=== PATIENT | female | born 1960 | race Caucasian/White ===

== ENCOUNTER 2016-10-04 11:42 | Emergency (ER) | payer MEDICARE ==
[~2016-10-04] VITALS: Ht 157.5 cm; Wt 52.1 kg
[~2016-10-04 11:42] MED LIST: ATEN25TA PO; AZIT250T3 PO; ESTR42.5V VAGINAL; LEVO-86 PO; MIRA3350 PO; NEXI40CA PO; PERC10TA27 PO; PRED1 PO; VITA200013 PO; ZOFR4TAB PO; [UNRECOGNIZED DRUG - CODE] VAGINAL
[2016-10-04 11:49] VITALS: BP 110/72; PULSE 72; RESP 16; TEMP 98.3; O2SAT 98
[2016-10-04] MEDS ORDERED: LORA-474 PO (12:05)
[2016-10-04] MEDS ORDERED: SYNT25TA PO (12:05)
[2016-10-04] MEDS ORDERED: FLORINEF PO (12:05)
[2016-10-04 12:06] LABS: MEAN CORPUSCULAR HGB CONC 29.8 % (32.0-36.0)
--- NOTE | 2016-10-04 12:06 | PD ---
HPI Chief Complaint: GI Complaint Time Seen by Provider: 11:55 Travel History International Travel<30 days: No Contact w/Intl Traveler<30days: No Traveled to known affect area: No History of Present Illness HPI This is a 56-year-old female who has a history of Loíza's disease who presents to the emergency department with 1 month of increasing generalized weakness, nausea, loose stools and malaise, constant, worsening over the past several days with no associated vomiting. She's been under a lot of stress concerned had a heart attack. She feels like her electrolytes may be getting [id number]. She did give herself at [facility] injection yesterday. She is also reporting some increasing pain in her thoracic region where she has a known T7 fracture. 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, MIX CONNECTIVE AUTOIMMINE) Blood Disorders: No Anxiety: Yes Depression: No Heart Rhythm Problems: Yes (PALPITATIONS, TACHYCARDIA, PVC'S, PAC'S) Cancer: No Cardiac Catheterization: Yes (RT HEART CATH, PULM ANGIOGRAM,TILT TABLE TEST) Cardiovascular Problems: Yes High Cholesterol: Yes Chemotherapy: No Chest Pain: No Congestive Heart Failure: No COPD: No Cerebrovascular Accident: No Diabetes: No Diminished Hearing: No Endocrine: Yes (ADDISONS) Gastrointestinal Disorders: Yes (GASTROPARESIS) GERD: Yes Glaucoma: No Genitourinary: Yes (BURNING) Headaches: No Hepatitis: No Hiatal Hernia: No Hypertension: No Immune Disorder: Yes (LUPUS) Implanted Vascular Access Dvce: No Kidney Stones: No Musculoskeletal: No Neurologic: Yes Psychiatric: Yes Reproductive: No Respiratory: No Immunizations Current: No Migraines: No Myocardial Infarction: No Radiation Therapy: No Renal Failure: No Seizures: No Sickle Cell Disease: No Sleep Apnea: No Thyroid Disease: Yes (HASHIMOTOS THYROIDITIS,ADDISONS DISEASE) Ulcer: Yes PNEUMOCCOCAL Vaccine (Year): 2 Menopausal: Yes : 3 Para: 3 Miscarriage: 0 : 0 Past Surgical History Abdominal Surgery: Yes ( TIMES 3) AICD: No Appendectomy: No Arteriovenous Shunt: No Body Medical Devices: partial left hip 2011 (Dr. Hobbs) Cardiac Surgery: No Section: Yes (X 3) Cholecystectomy: No Coronary Artery Bypass Graft: No Ear Surgery: No Endocrine Surgery: No Eye Surgery: No Genitourinary Surgery: No Gynecologic Surgery: Yes (HYSTERECTOMY) Hysterectomy: Yes Insulin Pump: No Joint Replacement: No Neurologic Surgery: No Oral Surgery: Yes (TONSILLECTOMY) Pacemaker: No Thoracic Surgery: No Tonsillectomy: Yes Other Surgery: Yes Social History Alcohol Use: No Tobacco Use: No Substance Use: No Allergies-Medications (Allergen,Severity, Reaction): Coded Allergies: Amoxicillin (Verified Allergy, Severe, hives, 10/04/16) Doxycycline (Verified Allergy, Severe, HIVES, 10/04/16) Ferrlecit (Verified Allergy, Severe, HIVES, 10/04/16) H2 Blocking Agents (Verified Allergy, Severe, "PALPITATIONS", 10/04/16) Mycelex (Verified Allergy, Severe, "HIVES", 10/04/16) Penicillin (Verified Allergy, Severe, "HIVES", 10/04/16) Remeron Bethany-Tab (Verified Allergy, Severe, Sedation, 10/04/16) SSRI-Serotonin Reuptake Inhib (Verified Allergy, Severe, VOMITING, 10/04/16) Sulfa (Verified Allergy, Severe, anaphylactic shock, 10/04/16) Iodine (Verified Allergy, Intermediate, 10/04/16) Adenosine (Verified Adverse Reaction, Severe, "DR STATED NOT TO TAKE", 10/04) Compazine (Verified Adverse Reaction, Severe, "EPS", 10/04/16) Contrast Media (Verified Adverse Reaction, Severe, BURNING IN ALL MUCOUS MEMBRANES, 10/04/16) Dilaudid (Verified Adverse Reaction, Severe, Nausea/Vomiting, 10/04/16) Epinephrine (Verified Adverse Reaction, Severe, TACHYCARDIA, 10/04/16) Nonsteroidal Anti-Inflammatory Agts (Verified Adverse Reaction, Severe, "JITTERY", 10/04/16) Phenergan (Verified Adverse Reaction, Severe, "EPS", 10/04/16) Reglan (Verified Adverse Reaction, Severe, "EPS", 10/04/16) Reported Meds & Prescriptions Reported Meds & Active Scripts Active Reported Ativan (Lorazepam) 1 Mg Tab 1 Mg PO BID PRN Synthroid (Levothyroxine Sodium) 25 Mcg Tab 68.5 Mcg PO 3 DAYS [Florinef] 0.075 Mg PO DAILY Miralax (Polyethylene Glycol 3350) 1 Pow Pow 2 Cap PO DAILY Zofran (Ondansetron HCl) 4 Mg Tab 4 Mg PO Q6HR PRN Azithromycin 250 Mg Tab 250 Mg PO DIRECTED Take 2 tabs (500 mg) on day 1 then 1 tab daily x 4 days. Nexium (Esomeprazole DR) 40 Mg Capdr 40 Mg PO DAILY Vitamin D (Cholecalciferol) 2,000 Unit Cap 2,000 PO DAILY Synthroid (Levothyroxine Sodium) 137 Mcg Tab 62.5 Mcg PO 4 DAYS Prednisone 1 Mg Tab 1 Mg PO DIRECTED Dhea 1 % (Emollient) 1 Cre Cre 12.5 Mg VAGINAL DAILY Atenolol 25 Mg Tab 25 Mg PO TID Estrace Vaginal (Estradiol) 0.01% Cream 1 Appl VAGINAL HS Percocet (Oxycodone-Acetaminophen) 10-325 mg Tab 1 Tab PO Q4H PRN Review of Systems Except as stated in HPI: all other systems reviewed are Neg Physical Exam Narrative GENERAL:Well appearing, no acute distress SKIN: Warm and dry. HEAD: Atraumatic. Normocephalic. EYES: Pupils equal and round. No injection or drainage. ENT: Dry mucous membranes. NECK: Trachea midline. CARDIOVASCULAR: Regular rate and rhythm. No murmur appreciated. RESPIRATORY: Clear to auscultation. Breath sounds equal bilaterally. GASTROINTESTINAL: Abdomen soft, non-tender, nondistended. MUSCULOSKELETAL: No obvious deformities. Tender to palpation in the mid thoracic spine NEUROLOGICAL: Awake and alert. No obvious cranial nerve deficits. Moving all extremities. PSYCHIATRIC: Appropriate mood and affect; insight and judgment normal. Data Data Last Documented VS Vital Signs Date Time Temp Pulse Resp B/P Pulse Ox O2 Delivery O2 Flow Rate FiO2 10/04/16 13:27 62 16 104/58 100 Room Air 10/04/16 11:49 98.3 Orders Complete Blood Count With Diff (10/04/16 12:04) Comprehensive Metabolic Panel (10/04/16 12:04) ^ Insert Iv (10/04/16 12:04) Sodium Chlor 0.9% 1000 Ml Inj (Ns 1000 M (10/04/16 12:15) Thyroid Stimulating Hormone (10/04/16 12:04) Spine, Thoracic-Ap/Lat/Sw(3vw) (10/04/16 ) Sodium Chlor 0.9% 1000 Ml Inj (Ns 1000 M (10/04/16 12:15) Ondansetron Inj (Zofran Inj) (10/04/16 12:15) Osmolality,Serum (10/04/16 12:14) Labs Laboratory Tests Test 10/04/16 12:20 White Blood Count 7.9 TH/MM3 Red Blood Count 5.85 MIL/MM3 Hemoglobin 10.7 GM/DL Hematocrit 35.9 % Mean Corpuscular Volume 61.4 FL Mean Corpuscular Hemoglobin 18.3 PG Mean Corpuscular Hemoglobin 29.8 % Concent Red Cell Distribution Width 17.6 % Platelet Count 127 TH/MM3 Mean Platelet Volume 10.6 FL Neutrophils (%) (Auto) 75.8 % Lymphocytes (%) (Auto) 18.5 % Monocytes (%) (Auto) 4.8 % Eosinophils (%) (Auto) 0.4 % Basophils (%) (Auto) 0.5 % Neutrophils # (Auto) 6.0 TH/MM3 Lymphocytes # (Auto) 1.5 TH/MM3 Monocytes # (Auto) 0.4 TH/MM3 Eosinophils # (Auto) 0.0 TH/MM3 Basophils # (Auto) 0.0 TH/MM3 CBC Comment DIFF FINAL Differential Comment Sodium Level 142 MEQ/L Potassium Level 3.9 MEQ/L Chloride Level 103 MEQ/L Carbon Dioxide Level 28.9 MEQ/L Anion Gap 10 MEQ/L Blood Urea Nitrogen 19 MG/DL Creatinine 0.78 MG/DL Estimat Glomerular Filtration 76 ML/MIN Rate Random Glucose 93 MG/DL Calcium Level 9.1 MG/DL Total Bilirubin 0.6 MG/DL Aspartate Amino Transf 14 U/L (AST/SGOT) Alanine Aminotransferase 18 U/L (ALT/SGPT) Alkaline Phosphatase 49 U/L Total Protein 7.5 GM/DL Albumin 3.8 GM/DL Thyroid Stimulating Hormone 0.336 uIU/ML 3rd Gen [facility] Medical Decision Making Medical Screen Exam Complete: Yes Emergency Medical Condition: Yes Interpretation(s) Microcytic anemia consistent with April last year Electrolytes are reassuring TSH is low Differential Diagnosis Addisonian crisis, electrolyte abnormality, dehydration, compression fracture Narrative Course This is a 56-year-old female who has a history of Jeramy's disease who presents to the emergency department with generalized malaise and increased diarrhea. Electrolytes were obtained which were all reassuring. She has chronic anemia and her TSH is low. This can be followed up by her primary care physician. A thoracic x-ray was obtained because the patient was having increasing pain but shows a stable compression fracture. Patient will be discharged home and can follow-up with her primary care physician on Wednesday. Diagnosis Primary Impression: Low TSH level Patient Instructions: General Instructions Additional Instructions: If you develop severe chest pain, shortness of breath, sweating, lightheadedness , dizziness or difficulty breathing return to the emergency department immediately. Followup with your primary care physician in 2-3 days if your symptoms are not resolved. Med/Other Pt SpecificInfo: No Change to Meds Disposition: 01 DISCHARGE HOME Condition: Stable Zhanna Bridges MD Oct 04, 2016 12:06
[2016-10-04] MEDS ORDERED: ONDANSETRON HCL 4 MG/2 ML VIAL IV ONE (12:15)
[2016-10-04] MEDS ORDERED: SODIUM CHLOR 0.9% 1000 ML INJ 1,000 ML IV ONE ×2 (12:15)
[2016-10-04 12:28] LABS: BASOPHIL % 0.5 % (0.0-2.0); EOSINOPHIL % 0.4 % (0.0-4.0); HEMATOCRIT 35.9 % (35.0-46.0); LYMPH % 18.5 % (9.0-44.0); LYMPHOCYTE # 1.5 TH/MM3 (1.0-4.8); MEAN CELL VOLUME 61.4 FL (80.0-100.0); MEAN CORPUSCULAR HEMOGLOBIN 18.3 PG (27.0-34.0); MONO % 4.8 % (0.0-8.0); NEUT % 75.8 % (16.0-70.0); PLATELET COUNT 127 TH/MM3 (150-450); RED BLOOD COUNT 5.85 MIL/MM3 (4.00-5.30); RED CELL DISTRIBUTION WIDTH 17.6 % (11.6-17.2); WHITE BLOOD COUNT 7.9 TH/MM3 (4.0-11.0)
[2016-10-04 12:39] LABS: HEMO FLAGS DIFF FINAL
[2016-10-04 12:40] LABS: CHLORIDE 103 MEQ/L (98-107); POTASSIUM 3.9 MEQ/L (3.5-5.1); SODIUM (NA) 142 MEQ/L (136-145)
[2016-10-04 12:43] LABS: ANION GAP 10 MEQ/L (5-15); BICARBONATE 28.9 MEQ/L (21.0-32.0); BLOOD UREA NITROGEN 19 MG/DL (7-18)
[2016-10-04 12:46] LABS: ALT (GPT) 18 U/L (10-53)
[2016-10-04 12:47] LABS: AST (GOT) 14 U/L (15-37); GLOMERULAR FILTRATION RATE 76 ML/MIN (>89)
[2016-10-04 12:48] LABS: TOTAL BILIRUBIN ADULT 0.6 MG/DL (0.2-1.0)
[2016-10-04 12:49] LABS: ALKALINE PHOSPHATASE 49 U/L (45-117)
--- NOTE | 2016-10-04 13:03 | RADHPO ---
EXAM DATE/TIME: 10/04/2016 12:37 [facility] COMPARISON: SPINE THORACIC AP/LAT/SW (3VW), August 07, 2012, 9:39. INDICATIONS : Upper back pain, no known injury MEDICAL HISTORY : None. SURGICAL HISTORY : None. ENCOUNTER: Initial ACUITY: 2 days PAIN SCORE: 7/10 LOCATION: Bilateral upper back FINDINGS: Thoracolumbar scoliosis is noted. Pedicles are intact. There is minimal anterior wedging of T7 pres ent on the comparison study and unchanged. No other evidence for a compression is noted. CONCLUSION: Stable minimal compression T7. Juan Miguel Brand MD FACR on October 04, 2016 at 12:54 Board Certified Radiologist. This report was verified electronically.
[2016-10-04 13:27] VITALS: BP 104/58; PULSE 62; RESP 16; O2SAT 100
[2016-10-05] MEDS ORDERED: FLUD.1 PO (23:56)
== END 2016-10-04 13:58 | disposition home or self-care (01) ==
LOC: PHED 11:42
DX: R79.89 Other specified abnormal findings of blood chemistry (principal); R53.1 Weakness; R11.0 Nausea; R19.7 Diarrhea, unspecified; R53.81 Other malaise; M54.6 Pain in thoracic spine; E27.1 Primary adrenocortical insufficiency; E07.9 Disorder of thyroid, unspecified; E78.00 Pure hypercholesterolemia, unspecified; Z86.2 Personal history of diseases of the blood and blood-forming organs and certain disorders involving the immune mechanism; Z87.39 Personal history of other diseases of the musculoskeletal system and connective tissue; Z86.79 Personal history of other diseases of the circulatory system; Z87.19 Personal history of other diseases of the digestive system; Z86.69 Personal history of other diseases of the nervous system and sense organs; Z86.59 Personal history of other mental and behavioral disorders
CPT/HCPCS: 72072; 80053; 83930; 84443; 85025; 96361; 96374; 99284; J2405; J7030

== ENCOUNTER 2016-10-11 15:15 | Emergency (ER) | payer MEDICARE ==
[~2016-10-11] VITALS: Ht 157.5 cm; Wt 52.1 kg
[~2016-10-11 15:15] MED LIST changes: +FLUD.1 PO; +LORA-474 PO; +SYNT25TA PO
[2016-10-11 15:20] VITALS: BP 117/80; PULSE 83; RESP 16; TEMP 98.6; O2SAT 96
[2016-10-11] MEDS ORDERED: AZIT200S2 PO (15:44)
[2016-10-11 15:53] VITALS: BP 101/57; PULSE 76; RESP 18; O2SAT 97
[2016-10-11 16:08] LABS: AUTOMATED NEUTROPHIL # 7.9 TH/MM3 (1.8-7.7); BASOPHIL % 0.4 % (0.0-2.0); EOSINOPHIL % 0.2 % (0.0-4.0); HEMATOCRIT 36.7 % (35.0-46.0); LYMPH % 17.1 % (9.0-44.0); LYMPHOCYTE # 1.7 TH/MM3 (1.0-4.8); MEAN CORPUSCULAR HEMOGLOBIN 18.7 PG (27.0-34.0); MEAN CORPUSCULAR HGB CONC 30.2 % (32.0-36.0); MONO % 3.3 % (0.0-8.0); PLATELET COUNT 153 TH/MM3 (150-450); RED BLOOD COUNT 5.91 MIL/MM3 (4.00-5.30); RED CELL DISTRIBUTION WIDTH 17.6 % (11.6-17.2); WHITE BLOOD COUNT 9.9 TH/MM3 (4.0-11.0)
[2016-10-11 16:10] LABS: BLOOD, URINE NEG (NEG); GLUCOSE,URINE NEG (NEG); KETONE, URINE NEG (NEG); NITRITE,URINE NEG (NEG); PH, URINE 5.5 (5.0-8.5)
[2016-10-11 16:12] LABS: METHOD OF COLLECTION CLEAN CATCH; URINE COLOR YELLOW (YELLW/STRAW)
[2016-10-11 16:16] LABS: CHLORIDE 102 MEQ/L (98-107); POTASSIUM 3.7 MEQ/L (3.5-5.1); SODIUM (NA) 139 MEQ/L (136-145)
[2016-10-11 16:19] LABS: HEMO FLAGS AUTO DIFF
[2016-10-11 16:20] LABS: ANION GAP 10 MEQ/L (5-15); BICARBONATE 26.9 MEQ/L (21.0-32.0); BLOOD UREA NITROGEN 16 MG/DL (7-18)
[2016-10-11 16:22] LABS: BACTERIA, URINE MANY /hpf; COMMENT (UR) CULTURE INDICATED; COMMENT2 (UR) MUCOUS PRESENT; CULTURE IF INDICATED CULTURE INDICATED; SQUAMOUS EPITHELIAL CELL URINE > 8 /hpf (0-5); WBC, URINE 0-2 /hpf (0-5)
[2016-10-11 16:23] LABS: ALT (GPT) 19 U/L (10-53); AST (GOT) 9 U/L (15-37); GLOMERULAR FILTRATION RATE 67 ML/MIN (>89)
[2016-10-11 16:25] LABS: TOTAL BILIRUBIN ADULT 0.4 MG/DL (0.2-1.0)
[2016-10-11 16:26] LABS: ALKALINE PHOSPHATASE 53 U/L (45-117)
--- NOTE | 2016-10-11 16:28 | PD ---
HPI Chief Complaint: General Weakness Time Seen by Provider: 16:13 Travel History International Travel<30 days: No Contact w/Intl Traveler<30days: No Traveled to known affect area: No History of Present Illness HPI 56 years old female complaining generalized malaise and weakness, nausea, diarrhea and muscle cramping. Patient has history [place] disease and gastroparesis. Patient states that she had persistent nausea and diarrhea recently. Patient has poor appetite recently. Patient denies any headache. Patient denies any chest pain or shortness of breath. Patient denies any blood or mucus in the stool. Patient denies any dysuria or frequency. Patient denies any fever chills. Patient was advised by her physician to increase prednisone to 10 mg daily for the past 5 days. 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, MIX CONNECTIVE AUTOIMMINE) Blood Disorders: No Anxiety: Yes Depression: No Heart Rhythm Problems: Yes (PALPITATIONS, TACHYCARDIA, PVC'S, PAC'S) Cancer: No Cardiac Catheterization: Yes (RT HEART CATH, PULM ANGIOGRAM,TILT TABLE TEST) Cardiovascular Problems: Yes (ORTHOSTATIC TACHYCARDIA) High Cholesterol: Yes Chemotherapy: No Chest Pain: No Congestive Heart Failure: No COPD: No Cerebrovascular Accident: No Diabetes: No Diminished Hearing: No Endocrine: Yes (ADDISONS) Gastrointestinal Disorders: Yes (GASTROPARESIS) GERD: Yes Glaucoma: No Genitourinary: Yes (BURNING) Headaches: No Hepatitis: No Hiatal Hernia: No Heparin Induced Thrombocytopen: No Hypertension: No Immune Disorder: Yes (LUPUS) Implanted Vascular Access Dvce: No Kidney Stones: No Musculoskeletal: No Neurologic: Yes Psychiatric: Yes Reproductive: No Respiratory: No Immunizations Current: No Migraines: No Myocardial Infarction: No Radiation Therapy: No Renal Failure: No Seizures: No Sickle Cell Disease: No Sleep Apnea: No Thyroid Disease: Yes (HASHIMOTOS THYROIDITIS,ADDISONS DISEASE) Ulcer: Yes Influenza Vaccination: Yes PNEUMOCCOCAL Vaccine (Year): 2 ?: Not Menopausal: Yes : 3 Para: 3 Miscarriage: 0 : 0 Past Surgical History Abdominal Surgery: Yes ( TIMES 3) AICD: No Appendectomy: No Arteriovenous Shunt: No Body Medical Devices: partial left hip 2011 (Dr. Hobbs) Cardiac Surgery: No Section: Yes (X 3) Cholecystectomy: No Coronary Artery Bypass Graft: No Ear Surgery: No Endocrine Surgery: No Eye Surgery: No Genitourinary Surgery: No Gynecologic Surgery: Yes (HYSTERECTOMY) Hysterectomy: Yes Insulin Pump: No Joint Replacement: No Neurologic Surgery: No Oral Surgery: Yes (TONSILLECTOMY) Pacemaker: No Thoracic Surgery: No Tonsillectomy: Yes Other Surgery: Yes Family History Family Myocardial Infarction: Yes Social History Alcohol Use: No Tobacco Use: No Substance Use: No Allergies-Medications (Allergen,Severity, Reaction): Coded Allergies: Amoxicillin (Verified Allergy, Severe, hives, 10/11/16) Doxycycline (Verified Allergy, Severe, HIVES, 10/11/16) Ferrlecit (Verified Allergy, Severe, HIVES, 10/11/16) H2 Blocking Agents (Verified Allergy, Severe, "PALPITATIONS", 10/11/16) Mycelex (Verified Allergy, Severe, "HIVES", 10/11/16) Penicillin (Verified Allergy, Severe, "HIVES", 10/11/16) Remeron Bethany-Tab (Verified Allergy, Severe, Sedation, 10/11/16) SSRI-Serotonin Reuptake Inhib (Verified Allergy, Severe, VOMITING, 10/11/16) Sulfa (Verified Allergy, Severe, anaphylactic shock, 10/11/16) Iodine (Verified Allergy, Intermediate, 10/11/16) Adenosine (Verified Adverse Reaction, Severe, "DR STATED NOT TO TAKE", 10/11) Compazine (Verified Adverse Reaction, Severe, "EPS", 10/11/16) Contrast Media (Verified Adverse Reaction, Severe, BURNING IN ALL MUCOUS MEMBRANES, 10/11/16) Dilaudid (Verified Adverse Reaction, Severe, Nausea/Vomiting, 10/11/16) Epinephrine (Verified Adverse Reaction, Severe, TACHYCARDIA, 10/11/16) Nonsteroidal Anti-Inflammatory Agts (Verified Adverse Reaction, Severe, "JITTERY", 10/11/16) Phenergan (Verified Adverse Reaction, Severe, "EPS", 10/11/16) Reglan (Verified Adverse Reaction, Severe, "EPS", 10/11/16) Reported Meds & Prescriptions Reported Meds & Active Scripts Active Reported Azithromycin Liq (Azithromycin) 200 Mg/5 Ml Susp 200 Mg PO DIRECTED Take 400 mg (10 mL) Day 1 then 200 mg (5 mL) on Days 2 to 5. Fludrocortisone (Fludrocortisone Acetate) 0.1 Mg Tab 0.075 Mg PO DAILY Ativan (Lorazepam) 1 Mg Tab 1 Mg PO BID PRN Synthroid (Levothyroxine Sodium) 25 Mcg Tab 68.5 Mcg PO 3 DAYS Miralax (Polyethylene Glycol 3350) 1 Pow Pow 2 Cap PO DAILY Nexium (Esomeprazole DR) 40 Mg Capdr 40 Mg PO DAILY Vitamin D (Cholecalciferol) 2,000 Unit Cap 2,000 PO DAILY Synthroid (Levothyroxine Sodium) 137 Mcg Tab 62.5 Mcg PO 4 DAYS Prednisone 1 Mg Tab 1 Mg PO DIRECTED Dhea 1 % (Emollient) 1 Cre Cre 12.5 Mg VAGINAL DAILY Atenolol 25 Mg Tab 25 Mg PO TID Estrace Vaginal (Estradiol) 0.01% Cream 1 Appl VAGINAL HS Percocet (Oxycodone-Acetaminophen) 10-325 mg Tab 1 Tab PO Q4H PRN Review of Systems General / Constitutional: No: Fever Eyes: No: Visual changes HENT: No: Headaches Cardiovascular: No: Chest Pain or Discomfort Respiratory: No: Shortness of Breath Gastrointestinal: Positive: Nausea, Diarrhea, No: Abdominal Pain Genitourinary: No: Dysuria Musculoskeletal: Positive: Weakness, No: Pain Skin: No Rash Neurologic: No: Weakness Psychiatric: No: Depression Endocrine: No: Polydipsia Hematologic/Lymphatic: No: Easy Bruising Physical Exam Narrative GENERAL: Well-nourished, well-developed patient. SKIN: Focused skin assessment warm/dry. HEAD: Normocephalic. EYES: No scleral icterus. No injection or drainage. NECK: Supple, trachea midline. No JVD or lymphadenopathy. CARDIOVASCULAR: Regular rate and rhythm without murmurs, gallops, or rubs. RESPIRATORY: Breath sounds equal bilaterally. No accessory muscle use. GASTROINTESTINAL: Abdomen soft, non-tender, nondistended. MUSCULOSKELETAL: No cyanosis, or edema. BACK: Nontender without obvious deformity. No CVA tenderness. Neurologic exam: Patient's awake and alert, oriented 3. Patient moves all extremity well. No obvious focal neurological deficit. Data Data Last Documented VS Vital Signs Date Time Temp Pulse Resp B/P Pulse Ox O2 Delivery O2 Flow Rate FiO2 4/9/17 16:57 64 18 109/57 98 Room Air 10/11/16 15:20 98.6 Orders Complete Blood Count With Diff (10/11/16 16:00) Comprehensive Metabolic Panel (10/11/16 16:00) Urinalysis - C+S If Indicated (10/11/16 16:00) Iv Access Insert/Monitor (10/11/16 16:00) Oximetry (10/11/16 16:00) Thyroid Stimulating Hormone (10/11/16 16:00) Osmolality,Serum (10/11/16 16:22) Urine Culture (10/11/16 15:30) Ondansetron Inj (Zofran Inj) (10/11/16 16:30) Sodium Chlor 0.9% 1000 Ml Inj (Ns 1000 M (10/11/16 16:30) Labs Laboratory Tests Test 10/11/16 10/11/16 15:30 15:43 Urine Collection Type CLEAN CATCH Urine Color YELLOW Urine Turbidity SLIGHT Urine pH 5.5 Urine Specific Ryan 1.012 Urine Protein NEG mg/dL Urine Glucose (UA) NEG mg/dL Urine Ketones NEG mg/dL Urine Occult Blood NEG Urine Nitrite NEG Urine Bilirubin NEG Urine Leukocyte Esterase NEG Urine WBC 0-2 /hpf Urine Squamous Epithelial > 8 /hpf Cells Urine Amorphous Sediment MOD Urine Bacteria MANY /hpf Microscopic Urinalysis Comment CULTURE INDICATED Urine Collection Time 1530 White Blood Count 9.9 TH/MM3 Red Blood Count 5.91 MIL/MM3 Hemoglobin 11.1 GM/DL Hematocrit 36.7 % Mean Corpuscular Volume 62.0 FL Mean Corpuscular Hemoglobin 18.7 PG Mean Corpuscular Hemoglobin 30.2 % Concent Red Cell Distribution Width 17.6 % Platelet Count 153 TH/MM3 Mean Platelet Volume 10.5 FL Neutrophils (%) (Auto) 79.0 % Lymphocytes (%) (Auto) 17.1 % Monocytes (%) (Auto) 3.3 % Eosinophils (%) (Auto) 0.2 % Basophils (%) (Auto) 0.4 % Neutrophils # (Auto) 7.9 TH/MM3 Lymphocytes # (Auto) 1.7 TH/MM3 Monocytes # (Auto) 0.3 TH/MM3 Eosinophils # (Auto) 0.0 TH/MM3 Basophils # (Auto) 0.0 TH/MM3 CBC Comment AUTO DIFF Differential Comment AUTO DIFF CONFIRMED Platelet Estimate NORMAL Platelet Morphology Comment NORMAL Basophilic Stippling FAINT Spherocytes OCC Tear Drop Cells 1+ Ovalocytes 1+ Rouleau PRESENT Keratocytes OCC Sodium Level 139 MEQ/L Potassium Level 3.7 MEQ/L Chloride Level 102 MEQ/L Carbon Dioxide Level 26.9 MEQ/L Anion Gap 10 MEQ/L Blood Urea Nitrogen 16 MG/DL Creatinine 0.87 MG/DL Estimat Glomerular Filtration 67 ML/MIN Rate Random Glucose 96 MG/DL Calcium Level 8.8 MG/DL Total Bilirubin 0.4 MG/DL Aspartate Amino Transf 9 U/L (AST/SGOT) Alanine Aminotransferase 19 U/L (ALT/SGPT) Alkaline Phosphatase 53 U/L Total Protein 7.4 GM/DL Albumin 3.9 GM/DL Thyroid Stimulating Hormone 0.371 uIU/ML 3rd Gen [facility] Medical Decision Making Medical Screen Exam Complete: Yes Emergency Medical Condition: Yes Interpretation(s) 1646 PM. CBC WBC 9.9. Hemoglobin 11.1 hematocrit 36.7. MCV 62. CMP within normal limit. TSH 0.371. UA is positive for bacteria. Negative WBC. Differential Diagnosis Differential diagnosis including acute exacerbation of [place]iden [place]'s disease, electrolyte imbalance, dehydration. Narrative Course 56 year old female with recurrent nausea and diarrhea and weakness. History of [place]'s disease and gastroparesis. Normal saline solution 1 L IV bolus. Zofran 4 mg IV. Diagnosis Primary Impression: Gastroenteritis Patient Instructions: General Instructions Additional Instructions: Zofran as needed for nausea vomiting. [id number] Imodium as needed for diarrhea. Follow-up with personal physician. Return if worse. Med/Other Pt SpecificInfo: Prescription(s) given Scripts Ondansetron Odt (Zofran Odt)4 Mg Tab4 Mg SL Q6HR PRN (Nausea/Vomiting) #10 TAB Prov:Raf Yañez MD 10/11/16 Disposition: 01 DISCHARGE HOME Condition: Stable Raf Yañez MD Oct 11, 2016 16:28
[2016-10-11] MEDS ORDERED: SODIUM CHLOR 0.9% 1000 ML INJ 1,000 ML IV ONE (16:30)
[2016-10-11] MEDS ORDERED: ONDANSETRON HCL 4 MG/2 ML VIAL IV PUSH ONE (16:30)
[2016-10-11 16:35] LABS: SPHEROCYTES OCC (NORMAL)
[2016-10-11 16:36] LABS: KERATOCYTES OCC (NORMAL); OVALOCYTES 1+ (NORMAL); PLATELET ESTIMATE SMEAR NORMAL (NORMAL); PLATELET MORPHOLOGY NORMAL (NORMAL); ROULEAUX PRESENT (NORMAL); SCAN/DIFF AUTO DIFF CONFIRMED; TEARDROP RBCS 1+ (NORMAL)
[2016-10-11 16:57] VITALS: BP 109/57; PULSE 64; RESP 18; O2SAT 98
[2016-10-11] MEDS ORDERED: ZOFR4TAB3 SL (17:01)
== END 2016-10-11 17:40 | disposition home or self-care (01) ==
LOC: PHED 15:15
DX: K52.9 Noninfective gastroenteritis and colitis, unspecified (principal); N39.0 Urinary tract infection, site not specified; B95.2 Enterococcus as the cause of diseases classified elsewhere
CPT/HCPCS: 80053; 81001; 83930; 84443; 85025; 87077; 87086; 87186; 96361; 96374; 99285; J2405; J7030

== ENCOUNTER 2017-02-25 17:36 | Inpatient (IN) | payer MEDICAID, MEDICARE ==
[~2017-02-25] VITALS: Ht 157.5 cm; Wt 55.4 kg
[~2017-02-25 17:36] MED LIST changes: +AZIT200S2 PO; -AZIT250T3 PO; -FLUD.1 PO; -MIRA3350 PO; -VITA200013 PO; -ZOFR4TAB PO; +ZOFR4TAB3 SL
[2017-02-25] MEDS ORDERED: ALIG4CAP PO (18:55)
[2017-02-25] MEDS ORDERED: MIRA3350 PO (18:55)
[2017-02-25] MEDS ORDERED: AZIT250T3 PO (18:55)
[2017-02-25] MEDS ORDERED: NEXI40CA PO (18:55)
[2017-02-25] MEDS ORDERED: ATEN25TA PO (18:55)
[2017-02-25] MEDS ORDERED: PERC10TA27 PO (18:55)
[2017-02-25] MEDS ORDERED: LORA-392 PO (18:55)
[2017-02-25] MEDS ORDERED: FLOR250C PO (18:55)
[2017-02-25] MEDS ORDERED: ZOFR4TAB3 SL (18:55)
[2017-02-25] MEDS ORDERED: PRED1 PO (18:55)
[2017-02-25] MEDS ORDERED: VITA1000 PO (18:55)
[2017-02-25] MEDS ORDERED: FLUD.1 PO (18:55)
--- NOTE | 2017-02-25 19:50 | RADRPT ---
EXAM DATE/TIME: 02/25/2017 19:17 [facility] COMPARISON: No previous studies available for comparison. INDICATIONS : Nausea, evaluate for obstruction. MEDICAL HISTORY : Gastroparesis. SURGICAL HISTORY : None. ENCOUNTER: Initial ACUITY: 3 days PAIN SCORE: 2/10 LOCATION: Bilateral abdomen. FINDINGS: Supine and upright views of the abdomen demonstrate air within bowel in a nonobstructive pattern. Upr ight image demonstrates no free intraperitoneal air or significant air-fluid level. No organomegaly o r concerning calcifications are identified. Bones demonstrate no acute finding. There has been prior left hip bipolar arthroplasty. CONCLUSION: No acute abdominal abnormality is identified. There are no findings to indicate bowel obstruction. Salvador Darnell MD on February 25, 2017 at 19:47 Board Certified Radiologist. This report was verified electronically.
[2017-02-25] MEDS ORDERED: SODIUM CHLOR 0.9% 1000 ML INJ 1,000 ML IV SCH (20:45)
[2017-02-25 20:50] VITALS: BP 95/52; PULSE 71; RESP 18; TEMP 97; O2SAT 92
[2017-02-25 21:34] LABS: AUTOMATED NEUTROPHIL # 5.9 TH/MM3 (1.8-7.7); BASOPHIL # 0.1 TH/MM3 (0-0.2); BASOPHIL % 0.6 % (0.0-2.0); EOSINOPHIL # 0.1 TH/MM3 (0-0.4); EOSINOPHIL % 0.8 % (0.0-4.0); LYMPH % 20.3 % (9.0-44.0); LYMPHOCYTE # 1.6 TH/MM3 (1.0-4.8); MEAN CELL VOLUME 60.5 FL (80.0-100.0); MEAN CORPUSCULAR HEMOGLOBIN 18.1 PG (27.0-34.0); MONO % 4.9 % (0.0-8.0); NEUT % 73.4 % (16.0-70.0); PLATELET COUNT 165 TH/MM3 (150-450); RED BLOOD COUNT 5.29 MIL/MM3 (4.00-5.30); RED CELL DISTRIBUTION WIDTH 20.1 % (11.6-17.2); WHITE BLOOD COUNT 8.1 TH/MM3 (4.0-11.0)
[2017-02-25 21:37] LABS: HEMO FLAGS AUTO DIFF
[2017-02-25] MEDS: ONDANSETRON HCL 4 MG/2 ML VIAL IV PUSH PRN (21:44)
[2017-02-25 21:49] LABS: ANION GAP 7 MEQ/L (5-15); AST (GOT) 14 U/L (15-37); BICARBONATE 26.9 MEQ/L (21.0-32.0); BLOOD UREA NITROGEN 17 MG/DL (7-18); CHLORIDE 103 MEQ/L (98-107); GLOMERULAR FILTRATION RATE 82 ML/MIN (>89); POTASSIUM 3.5 MEQ/L (3.5-5.1); SODIUM (NA) 137 MEQ/L (136-145)
[2017-02-25] MEDS: AZITHROMYCIN INJ 250 MG in SODIUM CHLOR 0.9% 250 ML INJ 250 ML IV SCH (21:49)
[2017-02-25 21:50] LABS: ALT (GPT) 19 U/L (10-53)
[2017-02-25 21:52] LABS: ALKALINE PHOSPHATASE 48 U/L (45-117); TOTAL BILIRUBIN ADULT 0.3 MG/DL (0.2-1.0)
[2017-02-25 22:13] LABS: SCAN/DIFF AUTO DIFF CONFIRMED
[2017-02-25 22:14] LABS: OVALOCYTES 1+ (NORMAL); TEARDROP RBCS 1+ (NORMAL)
[2017-02-25 22:15] LABS: KERATOCYTES OCC (NORMAL); PLATELET ESTIMATE SMEAR NORMAL (NORMAL); PLATELET MORPHOLOGY ENLARGED (NORMAL)
[2017-02-25 22:47] LABS: BACTERIA, URINE OCC /hpf; BLOOD, URINE NEG (NEG); COMMENT (UR) CULT NOT INDICATED; CULTURE IF INDICATED CULT NOT INDICATED; GLUCOSE,URINE NEG (NEG); KETONE, URINE NEG (NEG); MUCUS URINE FEW /lpf (OCC); NITRITE,URINE NEG (NEG); PH, URINE 6.5 (5.0-8.5); SQUAMOUS EPITHELIAL CELL URINE 6 /hpf (0-5); URINE COLOR YELLOW (YELLW/STRAW)
[2017-02-25] MEDS: oxyCODONE/ACETAMINOPHEN 5 MG/325 MG TAB PO PRN (23:29)
[2017-02-26] MEDS ORDERED: PILL SPLITTER OTHER PRN (00:15)
[2017-02-26] MEDS: NS + KCL 20 MEQ INJ 1,000 ML IV SCH ×3 (00:33→14:57)
[2017-02-26 00:45] VITALS: BP 99/61; PULSE 76; RESP 18; TEMP 97; O2SAT 98
[2017-02-26] MEDS: LORazepam 0.5 MG TAB PO PRN ×3 (00:48→14:54)
[2017-02-26] MEDS: ONDANSETRON HCL 4 MG/2 ML VIAL IV PUSH PRN ×4 (03:48→23:02)
[2017-02-26] MEDS: oxyCODONE/ACETAMINOPHEN 5 MG/325 MG TAB PO PRN ×3 (05:45→23:01)
[2017-02-26] MEDS: LEVOTHYROXINE SODIUM 112 MCG TAB PO SCH (05:55)
[2017-02-26] MEDS: LEVOTHYROXINE SODIUM 25 MCG TAB PO SCH (05:56)
[2017-02-26 07:45] VITALS: BP 97/56; PULSE 67; RESP 17; TEMP 96.1; O2SAT 96
[2017-02-26] MEDS: PANTOPRAZOLE SOD 40 MG DELAYED RELEASE TAB PO SCH (08:21)
[2017-02-26] MEDS: FLUDROCORTISONE ACETATE 0.1 MG TAB PO SCH (08:21)
[2017-02-26] MEDS: CHOLECALCIFEROL (VIT D3) 1000 UNIT TAB PO SCH (08:22)
[2017-02-26] MEDS: POLYETHYLENE GLYCOL 17 GM PKG PO SCH ×2 (08:22→21:09)
[2017-02-26] MEDS ORDERED: ATENOLOL 25 MG TAB PO SCH (09:00)
--- NOTE | 2017-02-26 09:39 | HHI.PR ---
Subjective Remarks Had 2 BM's after IV azithromycin last evening. Less nausea this am but has not eaten yet. States feeling stronger. Reports some orthostatic palpitatios but ambulating to BR. Current Medications Medications (Trade) Dose Ordered Sig/Anneliese Route Start Time Stop Time Status Last Admin (Zofran Inj) 4 mg Q6H PRN IV PUSH 02/25/17 20:45 02/26/17 03:48 Azithromycin 250 mg/Sodium Chloride 250 ml @ 250 mls/hr Q24H IV 02/25/17 21:00 02/25/17 21:49 (Percocet 5-325 Mg) 1 tab Q6H PRN PO 02/25/17 23:30 02/26/17 05:45 (Tenormin) 25 mg TID PO 02/26/17 09:00 02/26/17 08:22 (Vitamin D3) 1,000 units DAILY PO 02/26/17 09:00 02/26/17 08:22 (Florinef) 0.1 mg DAILY PO 02/26/17 09:00 02/26/17 08:21 (Synthroid) 56 mcg MoWeFr@0600 PO 02/26/17 06:00 02/26/17 05:55 (Ativan) 0.5 mg Q4H PRN PO 02/25/17 23:45 02/26/17 05:45 (Miralax) 17 gm DAILY PO 02/26/17 09:00 02/26/17 08:22 (Synthroid) 62.5 mcg SuTuThSa@0600 PO 02/27/17 06:00 Potassium Chloride/Sodium Chloride 1,000 ml @ 125 mls/hr Q8H5M IV 02/26/17 00:15 02/26/17 08:15 (Protonix) 40 mg DAILY PO 02/26/17 09:00 02/26/17 08:21 (Pill Splitter) 1 ea UNSCH PRN OTHER 02/26/17 00:15 (Synthroid) 12.5 mcg MoWeFr@0600 PO 02/26/17 06:00 02/26/17 05:56 (Deltasone) 3 mg DAILY PO 02/27/17 09:00 UNV (Deltasone) 1.5 mg DAILY@1500 PO 02/26/17 15:00 UNV (Deltasone) 1 mg DAILY@0000 PO 02/27/17 00:00 UNV Objective Vital Signs Date Time Temp Pulse Resp B/P (MAP) Pulse Ox O2 Delivery O2 Flow Rate FiO2 02/26/17 07:45 96.1 67 17 97/56 (70) 96 02/26/17 00:45 97.0 76 18 99/61 (74) 98 02/25/17 20:50 97.0 71 18 95/52 (66) 92 I/O 02/25/17 02/25/17 02/25/17 02/26/17 02/26/17 02/26/17 06:59 14:59 22:59 06:59 14:59 22:59 Intake Total 240 ml 1004 ml Balance 240 ml 1004 ml Intake Oral 240 ml 120 ml IV Total 884 ml # Voids 1 2 # Bowel Movements 1 1 CV: RRR without murmurs Lungs: CTA Abd: soft, NT, ND, +BS Ext: No edema Result Diagram: 02/25/17203802/25/172038 Imaging Last 48 hours Impressions Abdomen X-Ray 02/25/17 0000 Signed Impressions: Service Date/Time: February 19:17 - CONCLUSION: No acute abdominal abnormality is identified. There are no findings to indicate bowel obstruction. Salvador Darnell MD Assessment and Plan Problem List: (1) Nausea ICD Codes: R11.0 - Nausea Status: Acute Plan: The patient has chronic nausea but has been exacerbated over last several weeks. reports unable to take adeqyauate solids or liquids over last week. Uses Zofran daily but not helping. She feels some better this am. She is going to try to eat a small BF and see if nausea increases. Etiology is likely multifactorial: gastroparesis. dehydration, constipation (2) Gastroparesis ICD Codes: K31.84 - Gastroparesis Status: Chronic Plan: GI consult pending. Would patient benefit from drug holiday from Azithromycin. She cannot tolerate any other promotility agents. (3) Hypothyroidism ICD Codes: E03.9 - Hypothyroidism, unspecified Status: Chronic Plan: Continue with current regimen of Synthroid. Patient has frequent thyroid labs as outpatient. No need to recheck at this time (4) Dysautonomia ICD Codes: G90.9 - Disorder of the autonomic nervous system, unspecified Status: Chronic Plan: She has Postural Orthostatic Tachycardia Syndrome. Cont Atenolol and Florinef (5) Addisons disease ICD Codes: E27.1 - Primary adrenocortical insufficiency Status: Chronic Plan: Adequent steroid replacement (6) Iron deficiency anemia ICD Codes: D50.9 - Iron deficiency anemia, unspecified Status: Chronic Plan: She has chroic iron deficiency. Cannot tolerate oral iron supplements and had allergic reaction to IV iron supplement. Will recheck iron supplements (7) Anxiety ICD Codes: F41.9 - Anxiety disorder, unspecified Status: Chronic Plan: Cont Lorazepam as needed (8) Left hip pain ICD Codes: M25.552 - Pain in left hip Status: Chronic Plan: Oxycodone prn Problem Qualifiers (1) Hypothyroidism: Qualified Codes: E03.9 - Hypothyroidism, unspecified (2) Iron deficiency anemia: Qualified Codes: D50.8 - Other iron deficiency anemias Andres Duron MD Feb 26, 2017 09:39
--- NOTE | 2017-02-26 11:13 | MB ---
cc: ANDER SHEARER M.D., JASON R. M.D. AGNONE, LOUIS M. MD DATE OF CONSULTATION 02/26/2017 REASON FOR CONSULTATION Gastroparesis HISTORY Jennifer is a very pleasant 56-year-old female well-known to our practice followed by Dr. Shearer for chronic gastroparesis and constipation. Jennifer has a complicated history of gastroparesis and Hutchinson's disease. She has been maintained on azithromycin every other day and had been managing her chronic nausea with Zofran until recently when her medical insurance would no longer cover it. She recently has been using medical marijuana, but states that nothing really helps her nausea. If she does not eat, she does not feel nauseated, but about 15 minutes after eating, she does become nauseated. She typically does not vomit, but often feels the urge to vomit. This often causes a globus sensation. She has lost a few pounds recently and states that over the past month her gastroparesis symptoms have been worse. She states this often leads to dehydration and that was the main reason for her current admission. She did receive azithromycin IV upon admission and had two soft bowel movements. Her abdominal x-rays are benign. She also takes Percocet up to 10 mg total dose per day in divided doses for chronic back and hip pain. PAST MEDICAL HISTORY Her medical history is remarkable for: 1. Gastroparesis 2. Hutchinson's disease 3. She has had a partial left hip replacement. 4. She has postural hypotension for which she manages with a beta nicole. 5. She has a history of thalassemia with chronic microcytic anemia. She has been unable to do colonoscopies or any colon cancer screening involving the bowel prep but states that she recently did the Cologuard test and that was negative. 6. Hypothyroidism 7. History of iron deficiency. MEDICATIONS Her medications lately have been: 1. Medical marihuana 2. Zofran 3. She did try an IM injection not too long ago but only once. 4. Azithromycin 250 mg typically the suspension every other day but in the hospital here, she has received it IV on a q.24 h schedule. 5. Percocet 5/325 one tablet q.6 h p.r.n. 6. Tenormin 25 mg t.i.d. 7. Vitamin D3 1000 units daily 8. She takes Florinef for her Hutchinson's disease 0.1 mg daily 9. Synthroid 56 mcg daily 10. Ativan 0.5 mg p.r.n. 11. MiraLax 17 grams daily for constipation 12. Protonix 40 mg daily, but at home takes Nexium 13. She is on prednisone three times a day 3 mg 1.5 mg in 1 mg at different times of the day. ALLERGIES Her allergies are to H2 BLOCKERS, SULFA DRUGS, ADENOSINE, AMOXILLIN, CITALOPRAM, CLOTRIMAZOLE, DIATRIZOATE, MEGLUMINE, DICLOFENAC, DOXYCYCLINE, DULOXETINE, EPINEPHRINE, ETOTOLAC, AND FERUMOXYTOL. REVIEW OF SYSTEMS Remarkable for the globus sensation, but no heartburn or dysphagia. No abdominal pain. She has almost constant nausea. She has been urinating very little this week. She did have two bowel movements this admission, but normally deals with chronic constipation. No rectal bleeding or black stools. No respiratory symptoms. PHYSICAL EXAM Physical exam reveals a well-developed female in no acute distress. VITAL SIGNS: Her blood pressure is 97/56, pulse 67, respirations 17 nonlabored, temperature is 96.1 orally. HEAD, EYES, EARS, NOSE, AND THROAT: Sclerae anicteric. There was no sign of oral thrush. LUNGS: Clear. HEART: Heart sounds are regular. ABDOMEN: Soft and nondistended and nontender. No masses. No organomegaly. Bowel sounds are normal. RECTAL: Deferred. No cyanosis, clubbing or edema. SKIN: Warm and dry. She was alert and well-oriented with a pleasant affect. LABORATORY FINDINGS Reveals a BUN of 17 with creatinine 0.73, sodium 137, potassium 3.5. LFTs are unremarkable. Albumin 3.6, hemoglobin is 9.6 with an MCV of 60, platelet count of 165,000. Urinalysis was unremarkable and the specific gravity was 1.012 which is in the normal range. Abdominal x-rays were benign. IMPRESSION 1. Gastroparesis 2. Chronic constipation PLAN I had a lengthy discussion with Jennifer about her history. We discussed the topic of a drug holiday from her azithromycin. She states she has been taking it at least every other day since July of this year. She was seeing a Dr. Olivier in the motility department at [facility] in the past who suggested a 3-week holiday periodically, but she has not been doing that. We discussed possibly trying one week off per month, but since she has had a recent flare of her gastroparesis, we will likely continue her until she is feeling better, but will discuss this with Dr. Shearer. I discussed some other options with her such as the gastric pacemaker. She states they have considered that, but did not feel she was a good candidate because of her postural hypotension and autonomic problems. We discussed a trial of Botox injection into the pylorus and a newer procedure involving an endoscopic pyloromyotomy that has benefited some patients with gastroparesis. To keep her hydrated, we discussed possibly placing a port for periodic IV fluids. Unfortunately, she has not been able to get Zofran, but is thinking about switching her insurance companies. With regards to her constipation, she has been using MiraLax on a regular basis at home. We discussed possibly trying her on one of the newer cyclic GMP agonists such as Linzess or Trulance, but we will first discuss that with Dr. Duron and Dr. 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 Agree with hydration and advancing diet as tolerated. The patient also asked about possibly repeating an upper endoscopy which appears to have last been done about three or four years ago. She states she has had peptic ulcers in the past. We discussed considering and endoscopy if her nausea does not improve and she is not able to advance her diet. We will follow closely with you. Thank you for this consult. MD MARY Schreiber/KRISTINA /9:59 AM /10:53 AM GERALD
[2017-02-26 11:22] VITALS: BP 91/54; PULSE 66; RESP 16; TEMP 96.3; O2SAT 96
[2017-02-26 14:50] VITALS: BP 116/56; PULSE 65; RESP 16; TEMP 95.8; O2SAT 99
[2017-02-26] MEDS: ATENOLOL 25 MG TAB PO SCH (14:52)
[2017-02-26] MEDS ORDERED: predniSONE 1 MG TAB PO SCH (15:00)
[2017-02-26 20:00] VITALS: BP 95/58; PULSE 66; RESP 17; TEMP 97.4; O2SAT 99
[2017-02-26] MEDS: AZITHROMYCIN INJ 250 MG in SODIUM CHLOR 0.9% 250 ML INJ 250 ML IV SCH (21:27)
[2017-02-26] MEDS: predniSONE 1 MG TAB PO SCH (23:01)
[2017-02-26 23:30] VITALS: BP 92/55; PULSE 72; RESP 16; TEMP 96.3; O2SAT 97
[2017-02-27] MEDS: LORazepam 0.5 MG TAB PO PRN ×5 (00:26→23:58)
[2017-02-27] MEDS: ATENOLOL 25 MG TAB PO SCH ×4 (00:26→23:58)
[2017-02-27] MEDS: NS + KCL 20 MEQ INJ 1,000 ML IV SCH ×4 (00:28→23:55)
[2017-02-27] MEDS: oxyCODONE/ACETAMINOPHEN 5 MG/325 MG TAB PO PRN ×4 (04:30→23:57)
[2017-02-27] MEDS: ONDANSETRON HCL 4 MG/2 ML VIAL IV PUSH PRN ×4 (04:30→23:57)
[2017-02-27 04:35] VITALS: BP 99/56; PULSE 67; RESP 17; TEMP 97.2; O2SAT 96
[2017-02-27 07:05] LABS: AUTOMATED NEUTROPHIL # 4.5 TH/MM3 (1.8-7.7); BASOPHIL # 0.1 TH/MM3 (0-0.2); BASOPHIL % 0.8 % (0.0-2.0); EOSINOPHIL # 0.1 TH/MM3 (0-0.4); HEMATOCRIT 27.9 % (35.0-46.0); LYMPH % 31.6 % (9.0-44.0); LYMPHOCYTE # 2.3 TH/MM3 (1.0-4.8); MEAN CORPUSCULAR HEMOGLOBIN 17.8 PG (27.0-34.0); MONO % 5.8 % (0.0-8.0); NEUT % 60.8 % (16.0-70.0); PLATELET COUNT 119 TH/MM3 (150-450); RED BLOOD COUNT 4.57 MIL/MM3 (4.00-5.30); RED CELL DISTRIBUTION WIDTH 20.7 % (11.6-17.2); WHITE BLOOD COUNT 7.4 TH/MM3 (4.0-11.0)
[2017-02-27 07:09] LABS: ANION GAP 7 MEQ/L (5-15); BICARBONATE 24.1 MEQ/L (21.0-32.0); BLOOD UREA NITROGEN 8 MG/DL (7-18); CHLORIDE 108 MEQ/L (98-107); GLOMERULAR FILTRATION RATE 98 ML/MIN (>89); POTASSIUM 4.2 MEQ/L (3.5-5.1); SODIUM (NA) 139 MEQ/L (136-145)
[2017-02-27 07:14] LABS: FERRITIN 6 NG/ML (8-252); TRANSFERRIN IRON PROFILE 236 MG/DL (200-360)
[2017-02-27 07:22] LABS: HEMO FLAGS AUTO DIFF; MEAN CORPUSCULAR HGB CONC 29.1 % (32.0-36.0)
[2017-02-27 08:00] VITALS: BP 102/62; PULSE 65; RESP 18; TEMP 97.8; O2SAT 98
[2017-02-27] MEDS: predniSONE 1 MG TAB PO SCH ×3 (08:38→23:58)
[2017-02-27] MEDS: CHOLECALCIFEROL (VIT D3) 1000 UNIT TAB PO SCH (08:38)
[2017-02-27] MEDS: POLYETHYLENE GLYCOL 17 GM PKG PO SCH ×3 (08:38→20:06)
[2017-02-27] MEDS: FLUDROCORTISONE ACETATE 0.1 MG TAB PO SCH (08:38)
[2017-02-27] MEDS: PANTOPRAZOLE SOD 40 MG DELAYED RELEASE TAB PO SCH (08:38)
[2017-02-27] MEDS: LEVOTHYROXINE SODIUM 125 MCG TAB PO SCH (08:50)
[2017-02-27] MEDS ORDERED: predniSONE 1 MG TAB PO SCH ×2 (09:00)
[2017-02-27 09:58] LABS: ACANTHOCYTES 1+ (NORMAL); OVALOCYTES 1+ (NORMAL)
[2017-02-27 09:59] LABS: TEARDROP RBCS 1+ (NORMAL)
[2017-02-27 10:00] LABS: PLATELET ESTIMATE SMEAR LOW (NORMAL); PLATELET MORPHOLOGY NORMAL (NORMAL); SCAN/DIFF AUTO DIFF CONFIRMED
[2017-02-27 11:54] VITALS: BP 109/60; PULSE 69; RESP 18; TEMP 97.6; O2SAT 99
--- NOTE | 2017-02-27 12:04 | HHI.GIFU ---
GI Follow-up Note Consult Follow-up Subjective: Patient laying in bed comfortably, no new complaints except still nauseated and c/o globus sensation. Urinating much better, she asked nursing to turn off IVFs for awhile. Objective: PHYSICAL EXAMINATION: Vitals signs stable No fever Available Data (labs, X- Rays, Procedues) : Laboratory Tests Test 02/25/17 20:39 02/25/17 22:24 02/27/17 05:45 Hemoglobin 9.6 GM/DL (11.6-15.3) 8.1 GM/DL (11.6-15.3) Hematocrit 32.0 % (35.0-46.0) 27.9 % (35.0-46.0) Mean Corpuscular Volume 60.5 FL (80.0-100.0) 61.0 FL (80.0-100.0) Mean Corpuscular Hemoglobin 18.1 PG (27.0-34.0) 17.8 PG (27.0-34.0) Mean Corpuscular Hemoglobin Concent 30.0 % (32.0-36.0) 29.1 % (32.0-36.0) Red Cell Distribution Width 20.1 % (11.6-17.2) 20.7 % (11.6-17.2) Neutrophils (%) (Auto) 73.4 % (16.0-70.0) Platelet Morphology Comment ENLARGED (NORMAL) Tear Drop Cells 1+ (NORMAL) 1+ (NORMAL) Ovalocytes 1+ (NORMAL) 1+ (NORMAL) Keratocytes OCC (NORMAL) Aspartate Amino Transf (AST/SGOT) 14 U/L (15-37) Estimat Glomerular Filtration Rate 82 ML/MIN (>89) Urine Turbidity HAZY (CLEAR) Urine Bacteria OCC /hpf (NONE) Urine Mucus FEW /lpf (OCC) Platelet Count 119 TH/MM3 (150-450) Platelet Estimate LOW (NORMAL) Acanthocytes 1+ (NORMAL) Calcium Level 8.0 MG/DL (8.5-10.1) Chloride Level 108 MEQ/L (98-107) Iron Level 17 MCG/DL (50-170) Percent Iron Saturation 5.1 % (20-50) Ferritin 6 NG/ML (8-252) ASSESSMENT/PLAN: 1. Gastroparesis-she wants IVF rate reduced but not stopped. She agrees to starting a drug holiday from Azithromycin. I discussed her case with Dr Sheraer who will be taking over hospital service Wednesday. She would like EGD and will consider a trial of Botox but she wants Dr Shearer to do it. She has decided she does not want a PICC line or Port for home IVFs. It was a pleasure seeing Jennifer Raines. Thank you for this consult. Entered by: Gary Berg MD Feb 27, 2017 12:04
--- NOTE | 2017-02-27 14:08 | HHI.PR ---
Subjective Remarks Still complains of constant nausea. Eating very little. No emesis. 2 soft small BM's yesterday. Ambulated in halls. UOP has improved with IVF. Patient spoke with b operator yesterday who recommended to double steroids in order to prevent Addisonian crisis. Wean slowly. Reviewed Dr Sethi's note. This patient is very complicated. Dr Shearer very familiar with her condition. He will be available after weekend. Patient is agreeable to EGD. Denies chest pain, abdominal pain, SOB or palpitations Objective Vital Signs Date Time Temp Pulse Resp B/P (MAP) Pulse Ox O2 Delivery O2 Flow Rate FiO2 02/27/17 11:54 97.6 69 18 109/60 (76) 99 02/27/17 08:00 97.8 65 18 102/62 (75) 98 02/27/17 04:35 97.2 67 17 99/56 (70) 96 02/26/17 23:30 96.3 72 16 92/55 (67) 97 02/26/17 20:00 97.4 66 17 95/58 (70) 99 02/26/17 14:50 95.8 65 16 116/56 (76) 99 I/O 02/26/17 02/26/17 02/26/17 02/27/17 02/27/17 02/27/17 07:00 15:00 23:00 07:00 15:00 23:00 Intake Total 1004 ml 1240 ml 1846 ml 480 ml Balance 1004 ml 1240 ml 1846 ml 480 ml Intake Oral 120 ml 240 ml 720 ml 480 ml IV Total 884 ml 1000 ml 1126 ml # Voids 2 3 1 2 # Bowel Movements 1 1 CV: RRR Lungs: CTA Abd: soft, mild distention, NT, +BS, no masses Ext: No edema Result Diagram: 02/27/17 0545 02/27/17 0545 Other Results Laboratory Tests Test 02/25/17 20:39 02/25/17 22:24 02/27/17 05:45 White Blood Count 8.1 TH/MM3 (4.0-11.0) 7.4 TH/MM3 (4.0-11.0) Red Blood Count 5.29 MIL/MM3 (4.00-5.30) 4.57 MIL/MM3 (4.00-5.30) Hemoglobin 9.6 GM/DL (11.6-15.3) 8.1 GM/DL (11.6-15.3) Hematocrit 32.0 % (35.0-46.0) 27.9 % (35.0-46.0) Mean Corpuscular Volume 60.5 FL (80.0-100.0) 61.0 FL (80.0-100.0) Mean Corpuscular Hemoglobin 18.1 PG (27.0-34.0) 17.8 PG (27.0-34.0) Mean Corpuscular Hemoglobin Concent 30.0 % (32.0-36.0) 29.1 % (32.0-36.0) Red Cell Distribution Width 20.1 % (11.6-17.2) 20.7 % (11.6-17.2) Platelet Count 165 TH/MM3 (150-450) 119 TH/MM3 (150-450) Mean Platelet Volume 10.7 FL (7.0-11.0) 9.9 FL (7.0-11.0) Neutrophils (%) (Auto) 73.4 % (16.0-70.0) 60.8 % (16.0-70.0) Lymphocytes (%) (Auto) 20.3 % (9.0-44.0) 31.6 % (9.0-44.0) Monocytes (%) (Auto) 4.9 % (0.0-8.0) 5.8 % (0.0-8.0) Eosinophils (%) (Auto) 0.8 % (0.0-4.0) 1.0 % (0.0-4.0) Basophils (%) (Auto) 0.6 % (0.0-2.0) 0.8 % (0.0-2.0) Neutrophils # (Auto) 5.9 TH/MM3 (1.8-7.7) 4.5 TH/MM3 (1.8-7.7) Lymphocytes # (Auto) 1.6 TH/MM3 (1.0-4.8) 2.3 TH/MM3 (1.0-4.8) Monocytes # (Auto) 0.4 TH/MM3 (0-0.9) 0.4 TH/MM3 (0-0.9) Eosinophils # (Auto) 0.1 TH/MM3 (0-0.4) 0.1 TH/MM3 (0-0.4) Basophils # (Auto) 0.1 TH/MM3 (0-0.2) 0.1 TH/MM3 (0-0.2) CBC Comment AUTO DIFF AUTO DIFF Differential Comment AUTO DIFF CONFIRMED AUTO DIFF CONFIRMED Platelet Estimate NORMAL (NORMAL) LOW (NORMAL) Platelet Morphology Comment ENLARGED (NORMAL) NORMAL (NORMAL) Tear Drop Cells 1+ (NORMAL) 1+ (NORMAL) Ovalocytes 1+ (NORMAL) 1+ (NORMAL) Keratocytes OCC (NORMAL) Blood Urea Nitrogen 17 MG/DL (7-18) 8 MG/DL (7-18) Creatinine 0.73 MG/DL (0.50-1.00) 0.63 MG/DL (0.50-1.00) Random Glucose 97 MG/DL (74-106) 82 MG/DL (74-106) Total Protein 6.9 GM/DL (6.4-8.2) Albumin 3.6 GM/DL (3.4-5.0) Calcium Level 8.5 MG/DL (8.5-10.1) 8.0 MG/DL (8.5-10.1) Alkaline Phosphatase 48 U/L (45-117) Aspartate Amino Transf (AST/SGOT) 14 U/L (15-37) Alanine Aminotransferase (ALT/SGPT) 19 U/L (10-53) Total Bilirubin 0.3 MG/DL (0.2-1.0) Sodium Level 137 MEQ/L (136-145) 139 MEQ/L (136-145) Potassium Level 3.5 MEQ/L (3.5-5.1) 4.2 MEQ/L (3.5-5.1) Chloride Level 103 MEQ/L (98-107) 108 MEQ/L (98-107) Carbon Dioxide Level 26.9 MEQ/L (21.0-32.0) 24.1 MEQ/L (21.0-32.0) Anion Gap 7 MEQ/L (5-15) 7 MEQ/L (5-15) Estimat Glomerular Filtration Rate 82 ML/MIN (>89) 98 ML/MIN (>89) Urine Color YELLOW (YELLW/STRAW) Urine Turbidity HAZY (CLEAR) Urine pH 6.5 (5.0-8.5) Urine Specific [place] 1.012 (1.002-1.035) Urine Protein NEG mg/dL (NEG-TRACE) Urine Glucose (UA) NEG mg/dL (NEG) Urine Ketones NEG mg/dL (NEG) Urine Occult Blood NEG (NEG) Urine Nitrite NEG (NEG) Urine Bilirubin NEG (NEG) Urine Urobilinogen LESS THAN 2.0 MG/DL (LESS Urine Leukocyte Esterase NEG (NEG) Urine RBC 3 /hpf (0-3) Urine WBC 1 /hpf (0-5) Urine Squamous Epithelial Cells 6 /hpf (0-5) Urine Bacteria OCC /hpf (NONE) Urine Mucus FEW /lpf (OCC) Microscopic Urinalysis Comment CULT NOT INDICATED Acanthocytes 1+ (NORMAL) Iron Level 17 MCG/DL (50-170) Total Iron Binding Capacity 330 MCG/DL (250-450) Percent Iron Saturation 5.1 % (20-50) Ferritin 6 NG/ML (8-252) Assessment and Plan Problem List: (1) Nausea ICD Codes: R11.0 - Nausea Status: Acute Plan: The patient has not had relief with IV Zofran and IVF. GI work-up in progress. Would likely benefit from EGD. Will discuss further with Dr Shearer when he is available. Will decrease IVF. Diet as tolerated (2) Gastroparesis ICD Codes: K31.84 - Gastroparesis Status: Chronic Plan: Will begin Azithromycin drug holiday. GI work-up in progress (3) Hypothyroidism ICD Codes: E03.9 - Hypothyroidism, unspecified Status: Chronic Plan: Continue with current regimen of Synthroid. Patient has frequent thyroid labs as outpatient. No need to recheck at this time (4) Dysautonomia ICD Codes: G90.9 - Disorder of the autonomic nervous system, unspecified Status: Chronic Plan: She has Postural Orthostatic Tachycardia Syndrome. Cont Atenolol and Florinef (5) Addisons disease ICD Codes: E27.1 - Primary adrenocortical insufficiency Status: Chronic Plan: Steroids were increased per Endocrinology recommendation. Will wean as tolerated. (6) Iron deficiency anemia ICD Codes: D50.9 - Iron deficiency anemia, unspecified Status: Chronic Plan: She has chronic iron deficiency. Cannot tolerate oral iron supplements and had allergic reaction to IV iron supplement. Iron levels very low and H&H lower (Dilutional). I will consult Hematology to evaluate for a means of iron supplementation that the patient will be able to tolerate (7) Anxiety ICD Codes: F41.9 - Anxiety disorder, unspecified Status: Chronic Plan: Cont Lorazepam as needed (8) Left hip pain ICD Codes: M25.552 - Pain in left hip Status: Chronic Plan: Oxycodone prn Assessment and Plan Extensive conversation with patient at bedside. Discussed plan of care. She will remain hospitalized in order for her to complete GI work-up in order to evaluate cause of increased nausea. It is medically necessary for her to have EGD as inpatient due to her multiple comorbidities and risk of complications Patient status changed to inpatient Problem Qualifiers (1) Hypothyroidism: Qualified Codes: E03.9 - Hypothyroidism, unspecified (2) Iron deficiency anemia: Qualified Codes: D50.8 - Other iron deficiency anemias Andres Duron MD Feb 27, 2017 14:08
[2017-02-27 16:00] VITALS: BP 98/55; PULSE 70; RESP 18; TEMP 95.6; O2SAT 100
[2017-02-27 19:30] VITALS: BP 98/55; PULSE 73; RESP 17; TEMP 96.7; O2SAT 98
--- NOTE | 2017-02-27 22:11 | MB ---
cc: SHAHAB TINAJERO M.D. DATE OF CONSULTATION 02/27/17 REASON FOR CONSULTATION Patient with thalassemia, iron deficiency with a possible reaction to IV iron in the past. PATIENT PROFILE The patient is a 56-year-old female. She is . She has been four times. She is currently with her ex-. She was born in [place], [place]. She has three children. She is disabled from a number of autoimmune disorders. 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 She does not smoke and does not drink. HISTORY OF PRESENT ILLNESS The patient is a 56-year-old female who has a history of thalassemia. She also has had a history of iron deficiency anemia. She is followed by Dr. Shearer who is a sole rougher for chronic gastroparesis and constipation. She has [place]'s disease. She has Sjogren's syndrome. 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 She has had her stools tested for blood on multiple occasions and they have been negative. She has had two upper endoscopies, one in 2012 and one subsequent to this and neither have demonstrated evidence of any bleeding. She does not feel that she could undergo a colonoscopy because of her [place]'s, but she has had a cologuard test done on the [facility] and it showed no abnormalities. On 02/27/2017, the patient has a hemoglobin of 8.1, white count 7400, platelets of 119,000, 60% neutrophils and 31% lymphs. The previous day hemoglobin was 9.6, white count 8000, platelets 165,000. Iron studies on 02/27 - iron 17, TIBC 313, saturation 5% and a serum ferritin is six. She has had problems with low ferritins in the past. In March of 2011, the ferritin was seven, in December of 2010 the ferritin was 11. She has received iron on multiple occasions. The last time she received iron she states that she had an allergic reaction. This occurred after the iron was finished where she developed a purplish rash over the body. She had to go to the emergency room. She tells me that she cannot take premedication with antihistamines as this causes her heart to race. In addition, she states that she cannot take H2 blockers under any circumstances. She tells me that when she receives increased doses of steroids that within 48-72 hours she develops muscle weakness. In looking back over previous laboratory studies, the earliest CBC and platelet count available to me is dated July of 2009. At that time, she had a hemoglobin of 12, hematocrit of 38, white count of 11,000, platelet count of 138,000. The MCV was 64. In looking back over the past several years, hemoglobins have been as low as 7.7 in 2011 and as high as 11 in June 2015. She has received iron on a number of occasions and it was only during the last time that she had problems. She did not have any respiratory distress or cardiovascular problems, just a purplish rash. PAST SURGICAL HISTORY 1. C-sections x3 2. Tonsillectomy 3. Abdominal hysterectomy 4. Left hip fracture following a fall. PAST MEDICAL HISTORY 1. Jeramy's disease 2. Gastroparesis 3. chronic pain 4. Iron deficiency 5. Sjogren's 6. Systemic lupus 7. Elevated RA factor 8. Antiphospholipid antibodies without thrombosis 9. Neel's thyroiditis 10. Post traumatic stress disorder. MEDICATIONS 1. Percocet 2. Esterase 3. Atenolol 4. DHEA 5. Prednisone 6. Florinef 7. Syncope 8. Vitamin D 9. Nexium 10. Zithromax 11. MiraLax 12. Florastar. 13. Ativan ALLERGIES SULFA AMOXICILLIN COMPAZINE REGLAN MYCELEX ANTIINFLAMMATORY MEDICINES H2 BLOCKERS ADENOSINE ? FIORICET EPINEPHRINE- heart raced DOXYCYCLINE REMERON Ferlicet FAMILY HISTORY Noncontributory. REVIEW OF SYSTEMS No change in vision or hearing. She has occasional palpitations. She has mild exertional shortness of breath. GI: Abdominal discomfort, constipation. She has had no blood in her stool and she tells me that her stool has been tested on multiple occasions. The major problem that she has is nausea occurring about 15 minutes after she eats. : No dysuria or frequency. MUSCULOSKELETAL: Lower back pain and pain where she previously fractured the hip. NEUROLOGIC: No focal weakness. SKIN: Unremarkable. PSYCHIATRIC: She suffers from post traumatic stress disorder Physical Exam: She appears well Pulse 80, RR 18, Afebrile HEENT: normal HEART: reg rhythm without gallops or murmurs. LUNGS: clear ABD: soft without tenderness, masses, or enlargement of the liver or spleen EXTREM: no edema SKIN: intact MSK: normal NEURO: no focal weakness LABORATORY DATA Lytes, BUN and creatinine are unremarkable. As indicated above, Hemoglobin 8.1, white count 7400, platelets 119,000, MCV 61. ASSESSMENT The patient is a 56-year female. She has a history of thalassemia. She has had a longstanding history of iron deficiency and in 2008 had a problem following the infusion of iron. Most reactions occur at the time of the administration of the iron and usually begin within a few minutes of starting the iron. She tells me her reaction occurred after the completion of the iron and was confined to the skin. PLAN I suggested that she receive IV iron. I called Dr. Alfonzo Krishnan who was kind enough to review his records. He last saw her in 2008 and gave her Ferrlecit. After she received the iron she contacted him about a rash and was referred to the emergency room. She did not have any cardiovascular or pulmonary problems and recovered uneventfully. She cannot receive H2 blockers as per history. She is reluctant to receive an antihistamine. I would like to premedicate her for 48 hours with dexamethasone , 4 mg t.i.d. and then administer IV iron dextran while she is in a monitored bed. I will give her enough iron that she will not have to revisit this for a while. It is hard for me to believe that 48 hours of oral Decadron will produce durable muscle weakness. If she refuses iron, another option would be to give her transfusions. I believe this is less desirable. One could give her 3 units of packed cells which would be the equivalent of 750 mg of elemental iron. She is undecided as to what she wants to do. Oral iron has not been effective. I believe she has a problem with absorption. She wants to speak to her primary care physician, Dr. Andres Duron. I will return tomorrow and hopefully by then she will have decided what she wants to do. There is no immediate life-threatening problem and I am not going to pressure her into making a decision. I would like to administer the iron in the hospital where she can be monitored and an accurate recording of events will take place. MD KAREL Dunbar /8:56 PM /9:40 PM [facility]
[2017-02-28] VITALS (7 sets, daily range): BP systolic 94–106; BP diastolic 53–62; PULSE 64–78; RESP 16–19; TEMP 96.4–97.6; O2SAT 95–99
[2017-02-28] MEDS: LORazepam 0.5 MG TAB PO PRN ×3 (05:13→19:48)
[2017-02-28] MEDS: ONDANSETRON HCL 4 MG/2 ML VIAL IV PUSH PRN ×3 (05:14→17:53)
[2017-02-28] MEDS: LEVOTHYROXINE SODIUM 125 MCG TAB PO SCH (05:15)
[2017-02-28] MEDS: PANTOPRAZOLE SOD 40 MG DELAYED RELEASE TAB PO SCH (08:18)
[2017-02-28] MEDS: FLUDROCORTISONE ACETATE 0.1 MG TAB PO SCH (08:18)
[2017-02-28] MEDS: POLYETHYLENE GLYCOL 17 GM PKG PO SCH ×3 (08:18→19:42)
[2017-02-28] MEDS: CHOLECALCIFEROL (VIT D3) 1000 UNIT TAB PO SCH (08:18)
[2017-02-28] MEDS: predniSONE 1 MG TAB PO SCH ×2 (08:19→15:21)
[2017-02-28] MEDS: ATENOLOL 25 MG TAB PO SCH ×2 (08:23→15:21)
[2017-02-28 09:20] LABS: AUTOMATED NEUTROPHIL # 4.9 TH/MM3 (1.8-7.7); BASOPHIL # 0.1 TH/MM3 (0-0.2); BASOPHIL % 1.4 % (0.0-2.0); EOSINOPHIL # 0.1 TH/MM3 (0-0.4); EOSINOPHIL % 1.3 % (0.0-4.0); HEMATOCRIT 29.5 % (35.0-46.0); LYMPH % 30.2 % (9.0-44.0); LYMPHOCYTE # 2.4 TH/MM3 (1.0-4.8); MEAN CELL VOLUME 60.1 FL (80.0-100.0); MEAN CORPUSCULAR HEMOGLOBIN 18.3 PG (27.0-34.0); MEAN CORPUSCULAR HGB CONC 30.5 % (32.0-36.0); MONO % 5.9 % (0.0-8.0); NEUT % 61.2 % (16.0-70.0); PLATELET COUNT 156 TH/MM3 (150-450); RED BLOOD COUNT 4.91 MIL/MM3 (4.00-5.30); RED CELL DISTRIBUTION WIDTH 20.6 % (11.6-17.2); WHITE BLOOD COUNT 7.9 TH/MM3 (4.0-11.0)
[2017-02-28 09:23] LABS: HEMO FLAGS AUTO DIFF
--- NOTE | 2017-02-28 09:36 | HHI.PR ---
Subjective Remarks Had diarrhea yesterday. Nausea some better. Reports poor po intake. No emesis. UOP good. No chest pain, palpitations or SOB Current Medications Medications (Trade) Dose Ordered Sig/Anneliese Route Start Time Stop Time Status Last Admin (Zofran Inj) 4 mg Q6H PRN IV PUSH 02/25/17 20:45 02/28/17 05:14 (Percocet 5-325 Mg) 1 tab Q6H PRN PO 02/25/17 23:30 02/27/17 23:57 (Vitamin D3) 1,000 units DAILY PO 02/26/17 09:00 02/28/17 08:18 (Florinef) 0.1 mg DAILY PO 02/26/17 09:00 02/28/17 08:18 (Synthroid) 56 mcg MoWeFr@0600 PO 02/26/17 06:00 02/26/17 05:55 (Ativan) 0.5 mg Q4H PRN PO 02/25/17 23:45 02/28/17 05:13 (Miralax) 17 gm DAILY PO 02/26/17 09:00 02/28/17 08:18 (Synthroid) 62.5 mcg SuTuThSa@0600 PO 02/27/17 06:00 02/28/17 05:15 (Protonix) 40 mg DAILY PO 02/26/17 09:00 02/28/17 08:18 (Pill Splitter) 1 ea UNSCH PRN OTHER 02/26/17 00:15 (Synthroid) 12.5 mcg MoWeFr@0600 PO 02/26/17 06:00 02/26/17 05:56 (Tenormin) 25 mg DAILY@0100,0800,1500 PO 02/26/17 15:00 02/28/17 08:23 (Deltasone) 3 mg DAILY@1500 PO 02/27/17 15:00 02/27/17 14:55 (Deltasone) 2 mg DAILY@0000 PO 02/27/17 00:00 02/27/17 23:58 (Deltasone) 6 mg DAILY PO 02/27/17 09:00 02/28/17 08:19 (Miralax) 17 gm BID PO 02/26/17 21:00 02/27/17 20:06 Potassium Chloride/Sodium Chloride 1,000 ml @ 84 mls/hr [id number] IV 02/27/17 12:00 02/27/17 14:57 Objective Vital Signs Date Time Temp Pulse Resp B/P (MAP) Pulse Ox O2 Delivery O2 Flow Rate FiO2 02/28/17 08:00 96.6 64 19 105/58 (74) 95 02/28/17 04:00 97.2 68 16 98/57 (71) 98 02/28/17 00:00 97.0 66 17 94/55 (68) 98 02/27/17 19:30 96.7 73 17 98/55 (69) 98 02/27/17 16:00 95.6 70 18 98/55 (69) 100 02/27/17 11:54 97.6 69 18 109/60 (76) 99 I/O 02/27/17 02/27/17 02/27/17 02/28/17 02/28/17 02/28/17 07:00 15:00 23:00 07:00 15:00 23:00 Intake Total 480 ml 480 ml 1732 ml 480 ml Balance 480 ml 480 ml 1732 ml 480 ml Intake Oral 480 ml 480 ml 240 ml 480 ml IV Total 1492 ml # Voids 2 3 3 4 # Bowel Movements 1 0 0 CV: RRR Lungs: CTA Abd; soft, NT, ND, +BS Result Diagram: 02/28/17 0900 02/27/17 0545 Assessment and Plan Problem List: (1) Nausea ICD Codes: R11.0 - Nausea Status: Acute Plan: GI work-up in progress. Would likely benefit from EGD. Will discuss further with Dr Shearer when he is available. Cont IVF. Diet as tolerated (2) Gastroparesis ICD Codes: K31.84 - Gastroparesis Status: Chronic Plan: Cont Azithromycin drug holiday. GI work-up in progress (3) Iron deficiency anemia ICD Codes: D50.9 - Iron deficiency anemia, unspecified Status: Chronic Plan: Appreciate Hematology consult. I agree with premedication with steroids then Iron infusion. Extensive discussion with patient. We discussed risks and benefits of iron infusion vs transfusions. I reassured patient that she will not develop steroid myopathy with 48 hrs of high dose steroids. She agrees with iron infusion and will inform Dr Tran when he sees her today. Will need to D/C Prednisone while on Dexamethasone. (4) Hypothyroidism ICD Codes: E03.9 - Hypothyroidism, unspecified Status: Chronic Plan: Continue with current regimen of Synthroid. Patient has frequent thyroid labs as outpatient. No need to recheck at this time (5) Dysautonomia ICD Codes: G90.9 - Disorder of the autonomic nervous system, unspecified Status: Chronic Plan: She has Postural Orthostatic Tachycardia Syndrome. Cont Atenolol and Florinef (6) Addisons disease ICD Codes: E27.1 - Primary adrenocortical insufficiency Status: Chronic Plan: Steroids were increased per Endocrinology recommendation. Will wean as tolerated. (7) Anxiety ICD Codes: F41.9 - Anxiety disorder, unspecified Status: Chronic Plan: Cont Lorazepam as needed (8) Left hip pain ICD Codes: M25.552 - Pain in left hip Status: Chronic Plan: Oxycodone prn Assessment and Plan Patient's significant other present during entire visit 20 min spent at bedside Problem Qualifiers (1) Iron deficiency anemia: Qualified Codes: D50.8 - Other iron deficiency anemias (2) Hypothyroidism: Qualified Codes: E03.9 - Hypothyroidism, unspecified Andres Duron MD Feb 28, 2017 09:36
[2017-02-28 09:50] LABS: BICARBONATE 25.4 MEQ/L (21.0-32.0); POTASSIUM 4.2 MEQ/L (3.5-5.1)
[2017-02-28 10:15] LABS: ACANTHOCYTES 1+ (NORMAL); OVALOCYTES 1+ (NORMAL); PLATELET ESTIMATE SMEAR NORMAL (NORMAL); PLATELET MORPHOLOGY ENLARGED (NORMAL); SCAN/DIFF AUTO DIFF CONFIRMED; TEARDROP RBCS 1+ (NORMAL)
[2017-02-28] MEDS: NS + KCL 20 MEQ INJ 1,000 ML IV SCH ×2 (11:50→23:45)
[2017-02-28] MEDS: oxyCODONE/ACETAMINOPHEN 5 MG/325 MG TAB PO PRN ×2 (11:58→17:43)
--- NOTE | 2017-02-28 14:41 | PD.ONC.PN ---
Subjective Subjective Remarks no new complaints. Objective Data Date Time Temp Pulse Resp B/P (MAP) Pulse Ox O2 Delivery O2 Flow Rate FiO2 02/28/17 08:00 96.6 64 19 105/58 (74) 95 02/28/17 04:00 97.2 68 16 98/57 (71) 98 02/28/17 00:00 97.0 66 17 94/55 (68) 98 02/27/17 19:30 96.7 73 17 98/55 (69) 98 02/27/17 16:00 95.6 70 18 98/55 (69) 100 02/28/17 02/28/17 02/28/17 07:00 15:00 23:00 Intake Total 480 ml Balance 480 ml Result Diagram: 02/28/17 0900 02/28/17 0900 Laboratory Results Laboratory Tests Test 02/28/17 09:00 White Blood Count 7.9 TH/MM3 Red Blood Count 4.91 MIL/MM3 Hemoglobin 9.0 GM/DL Hematocrit 29.5 % Mean Corpuscular Volume 60.1 FL Mean Corpuscular Hemoglobin 18.3 PG Mean Corpuscular Hemoglobin Concent 30.5 % Red Cell Distribution Width 20.6 % Platelet Count 156 TH/MM3 Mean Platelet Volume 10.9 FL Neutrophils (%) (Auto) 61.2 % Lymphocytes (%) (Auto) 30.2 % Monocytes (%) (Auto) 5.9 % Eosinophils (%) (Auto) 1.3 % Basophils (%) (Auto) 1.4 % Neutrophils # (Auto) 4.9 TH/MM3 Lymphocytes # (Auto) 2.4 TH/MM3 Monocytes # (Auto) 0.5 TH/MM3 Eosinophils # (Auto) 0.1 TH/MM3 Basophils # (Auto) 0.1 TH/MM3 CBC Comment AUTO DIFF Differential Comment AUTO DIFF CONFIRMED Platelet Estimate NORMAL Platelet Morphology Comment ENLARGED Tear Drop Cells 1+ Ovalocytes 1+ Acanthocytes 1+ Blood Urea Nitrogen 8 MG/DL Creatinine 0.62 MG/DL Random Glucose 91 MG/DL Calcium Level 7.8 MG/DL Sodium Level 138 MEQ/L Potassium Level 4.2 MEQ/L Chloride Level 106 MEQ/L Carbon Dioxide Level 25.4 MEQ/L Anion Gap 7 MEQ/L Estimat Glomerular Filtration Rate 100 ML/MIN Administered Medications Medications (Trade) Dose Ordered Sig/Anneliese Route PRN Reason Start Time Stop Time Status Last Admin Dose Admin Ondansetron HCl (Zofran Inj) 4 mg Q6H PRN IV PUSH NAUSEA 02/25/17 20:45 02/28/17 11:59 Oxycodone/ Acetaminophen (Percocet 5-325 Mg) 1 tab Q6H PRN PO PAIN 02/25/17 23:30 02/28/17 11:58 Cholecalciferol (Vitamin D3) 1,000 units DAILY PO 02/26/17 09:00 02/28/17 08:18 Fludrocortisone Acetate (Florinef) 0.1 mg DAILY PO 02/26/17 09:00 02/28/17 08:18 Levothyroxine Sodium (Synthroid) 56 mcg MoWeFr@0600 PO 02/26/17 06:00 02/26/17 05:55 Lorazepam (Ativan) 0.5 mg Q4H PRN PO For mild anxiety / dyspnea 02/25/17 23:45 02/28/17 05:13 Polyethylene Glycol (Miralax) 17 gm DAILY PO 02/26/17 09:00 02/28/17 08:18 Levothyroxine Sodium (Synthroid) 62.5 mcg SuTuThSa@0600 PO 02/27/17 06:00 02/28/17 05:15 Pantoprazole Sodium (Protonix) 40 mg DAILY PO 02/26/17 09:00 02/28/17 08:18 Levothyroxine Sodium (Synthroid) 12.5 mcg MoWeFr@0600 PO 02/26/17 06:00 02/26/17 05:56 Atenolol (Tenormin) 25 mg DAILY@0100,0800,1500 PO 02/26/17 15:00 02/28/17 08:23 Prednisone (Deltasone) 3 mg DAILY@1500 PO 02/27/17 15:00 02/27/17 14:55 Prednisone (Deltasone) 2 mg DAILY@0000 PO 02/27/17 00:00 02/27/17 23:58 Prednisone (Deltasone) 6 mg DAILY PO 02/27/17 09:00 02/28/17 08:19 Polyethylene Glycol (Miralax) 17 gm BID PO 02/26/17 21:00 02/27/17 20:06 Potassium Chloride/Sodium Chloride 1,000 ml @ 84 mls/hr [id number] IV 02/27/17 12:00 02/27/17 14:57 Objective Remarks Assessment/Plan Assessment 1: I met with patient and her male product development specialist with our nurse practitioner after speaking with Dr. Duron and working out a plan. I proposed that we premedicate with Decadron 4 mg po tid for 2 days and then infuse IV iron with the usual test dose and the remaining amount over 8 hours with the patient on a property assessment monitor during the day to safely and effectively monitor. This is being done in spite of the fact that we do not have a history supportive of an anaphylactic and the risk would be very low. She had a number of questions about using other compounds and giving a subcut test dose. I indicated I wanted to give the full dose of iron to restore reserves while she is in the hospital where she can safely be monitored and would have Decadron 48 hours prior to the iron infusion to minimize the risks of an allergic reaction. I feel this would be safer then trying to give multiple outpatient doses. As the conversation evolved it became increasingly clear that she does not want to proceed and might reconsider on her terms at a later date. At this point I have nothing further to offer and have explored her treatment twice with Dr. Krishnan who saw her in 2008 and did not feel that she had an anaphylactic reaction and have discussed this twice today with Dr. Andres Duron who was supportive of giving the iron while she is in the hospital. At this point I have nothing further to offer and will not be returning as I do not feel I can have her support/cooperation to proceed. The situation is not life threatening and at some point she can decide to receive IV iron with another MD or receive blood transfusions. Nicola Tran MD Feb 28, 2017 14:40
[2017-03-01] MEDS: ONDANSETRON HCL 4 MG/2 ML VIAL IV PUSH PRN ×4 (00:14→22:28)
[2017-03-01] MEDS: ATENOLOL 25 MG TAB PO SCH ×3 (00:14→15:25)
[2017-03-01] MEDS: LORazepam 0.5 MG TAB PO PRN ×3 (00:15→15:27)
[2017-03-01] MEDS: predniSONE 1 MG TAB PO SCH ×3 (00:15→15:26)
[2017-03-01] MEDS: oxyCODONE/ACETAMINOPHEN 5 MG/325 MG TAB PO PRN ×3 (00:16→22:33)
[2017-03-01 03:15] VITALS: BP 107/58; PULSE 65; RESP 17; TEMP 96.5; O2SAT 95
[2017-03-01 08:03] VITALS: BP 99/57; PULSE 63; RESP 18; TEMP 98.2; O2SAT 93
[2017-03-01] MEDS: POLYETHYLENE GLYCOL 17 GM PKG PO SCH ×2 (08:09→10:03)
--- NOTE | 2017-03-01 08:51 | HHI.PR ---
Subjective Remarks Taking little po. Receiving fluids. Bowels moving Refused iron infusion. Fear of anaphylaxis despite discussion about premedication Current Medications Medications (Trade) Dose Ordered Sig/Anneliese Route Start Time Stop Time Status Last Admin (Zofran Inj) 4 mg Q6H PRN IV PUSH 02/25/17 20:45 03/01/17 00:14 (Percocet 5-325 Mg) 1 tab Q6H PRN PO 02/25/17 23:30 03/01/17 00:16 (Vitamin D3) 1,000 units DAILY PO 02/26/17 09:00 02/28/17 08:18 (Florinef) 0.1 mg DAILY PO 02/26/17 09:00 02/28/17 08:18 (Synthroid) 56 mcg MoWeFr@0600 PO 02/26/17 06:00 02/26/17 05:55 (Ativan) 0.5 mg Q4H PRN PO 02/25/17 23:45 03/01/17 04:01 (Miralax) 17 gm DAILY PO 02/26/17 09:00 02/28/17 08:18 (Synthroid) 62.5 mcg SuTuThSa@0600 PO 02/27/17 06:00 02/28/17 05:15 (Protonix) 40 mg DAILY PO 02/26/17 09:00 02/28/17 08:18 (Pill Splitter) 1 ea UNSCH PRN OTHER 02/26/17 00:15 (Synthroid) 12.5 mcg MoWeFr@0600 PO 02/26/17 06:00 02/26/17 05:56 (Tenormin) 25 mg DAILY@0100,0800,1500 PO 02/26/17 15:00 03/01/17 00:14 (Deltasone) 3 mg DAILY@1500 PO 02/27/17 15:00 02/28/17 15:21 (Deltasone) 2 mg DAILY@0000 PO 02/27/17 00:00 03/01/17 00:15 (Deltasone) 6 mg DAILY PO 02/27/17 09:00 02/28/17 08:19 (Miralax) 17 gm BID PO 02/26/17 21:00 02/28/17 19:42 Potassium Chloride/Sodium Chloride 1,000 ml @ 84 mls/hr [id number] IV 02/27/17 12:00 02/27/17 14:57 Objective Vital Signs Date Time Temp Pulse Resp B/P (MAP) Pulse Ox O2 Delivery O2 Flow Rate FiO2 03/01/17 08:03 98.2 63 18 99/57 (71) 93 03/01/17 03:15 96.5 65 17 107/58 (74) 95 02/28/17 23:11 96.8 78 18 103/53 (70) 99 02/28/17 19:44 96.4 71 18 102/61 (75) 98 02/28/17 16:00 97.0 64 16 100/57 (71) 99 02/28/17 12:00 97.6 73 19 106/62 (77) 97 I/O 02/28/17 02/28/17 02/28/17 03/01/17 03/01/17 03/01/17 07:00 15:00 23:00 07:00 15:00 23:00 Intake Total 480 ml 480 ml 480 ml 360 ml Balance 480 ml 480 ml 480 ml 360 ml Intake Oral 480 ml 480 ml 480 ml 360 ml # Voids 4 3 3 1 # Bowel Movements 0 1 1 0 Result Diagram: 02/28/17 0900 02/28/17 0900 Assessment and Plan Problem List: (1) Nausea ICD Codes: R11.0 - Nausea Status: Acute Plan: GI work-up in progress. Would likely benefit from EGD. Further work-up per Dr Shearer. Cont IVF. Diet as tolerated (2) Gastroparesis ICD Codes: K31.84 - Gastroparesis Status: Chronic Plan: Cont Azithromycin drug holiday. GI work-up in progress (3) Iron deficiency anemia ICD Codes: D50.9 - Iron deficiency anemia, unspecified Status: Chronic Plan: Patient refused iron infusion. Aware of risk of worsening anemia. Hematology has signed off (4) Hypothyroidism ICD Codes: E03.9 - Hypothyroidism, unspecified Status: Chronic Plan: Continue with current regimen of Synthroid. Patient has frequent thyroid labs as outpatient. No need to recheck at this time (5) Dysautonomia ICD Codes: G90.9 - Disorder of the autonomic nervous system, unspecified Status: Chronic Plan: She has Postural Orthostatic Tachycardia Syndrome. Cont Atenolol and Florinef (6) Addisons disease ICD Codes: E27.1 - Primary adrenocortical insufficiency Status: Chronic Plan: Steroids were increased per Endocrinology recommendation. Will wean as tolerated. (7) Anxiety ICD Codes: F41.9 - Anxiety disorder, unspecified Status: Chronic Plan: Cont Lorazepam as needed (8) Left hip pain ICD Codes: M25.552 - Pain in left hip Status: Chronic Plan: Oxycodone prn Assessment and Plan Patient's significant other present during entire visit. 20 min spent at bedside Problem Qualifiers (1) Iron deficiency anemia: Qualified Codes: D50.8 - Other iron deficiency anemias (2) Hypothyroidism: Qualified Codes: E03.9 - Hypothyroidism, unspecified Andres Duron MD Mar 01, 2017 08:51
[2017-03-01] MEDS: FLUDROCORTISONE ACETATE 0.1 MG TAB PO SCH (10:02)
[2017-03-01] MEDS: CHOLECALCIFEROL (VIT D3) 1000 UNIT TAB PO SCH (10:02)
[2017-03-01] MEDS: PANTOPRAZOLE SOD 40 MG DELAYED RELEASE TAB PO SCH (10:03)
[2017-03-01] MEDS: LEVOTHYROXINE SODIUM 112 MCG TAB PO SCH (10:13)
[2017-03-01] MEDS: LEVOTHYROXINE SODIUM 25 MCG TAB PO SCH (10:13)
[2017-03-01 12:00] VITALS: BP 127/67; PULSE 67; RESP 17; TEMP 97; O2SAT 100
[2017-03-01 16:00] VITALS: BP 111/54; PULSE 71; RESP 17; TEMP 96.7; O2SAT 99
--- NOTE | 2017-03-01 17:07 | HHI.GIFU ---
GI Follow-up Note Consult Follow-up Subjective: Patient laying in bed comfortably, no new complaints and so far has not noticed any difference being off the Azithromycin. Dr Tran's consult noted. Objective: PHYSICAL EXAMINATION: Vitals signs stable No fever Available Data (labs, X- Rays, Procedues) : ASSESSMENT/PLAN: 1. Gastroparesis-labs stable. 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 She will consider Botox injection but she has concerns she might be allergic to it. Continue drug holiday from azithromycin. It was a pleasure seeing Jennifer Raines. Thank you for this consult. Entered by: Gary Berg MD Mar 01, 2017 17:07
[2017-03-01 20:05] VITALS: BP 112/67; PULSE 69; RESP 18; TEMP 96.9; O2SAT 98
[2017-03-01] MEDS: NS + KCL 20 MEQ INJ 1,000 ML IV SCH (23:35)
[2017-03-02] VITALS (7 sets, daily range): BP systolic 96–117; BP diastolic 53–71; PULSE 62–78; RESP 17–18; TEMP 96.7–97.8; O2SAT 94–99
[2017-03-02] MEDS: ATENOLOL 25 MG TAB PO SCH ×3 (00:01→14:45)
[2017-03-02] MEDS: LORazepam 0.5 MG TAB PO PRN ×4 (00:01→23:58)
[2017-03-02] MEDS: predniSONE 1 MG TAB PO SCH ×4 (00:01→23:59)
[2017-03-02] MEDS: ONDANSETRON HCL 4 MG/2 ML VIAL IV PUSH PRN ×5 (04:23→22:22)
[2017-03-02] MEDS: oxyCODONE/ACETAMINOPHEN 5 MG/325 MG TAB PO PRN ×4 (04:23→22:29)
[2017-03-02] MEDS: NS + KCL 20 MEQ INJ 1,000 ML IV SCH ×3 (04:24→23:59)
[2017-03-02] MEDS: LEVOTHYROXINE SODIUM 125 MCG TAB PO SCH (04:31)
[2017-03-02] MEDS: POLYETHYLENE GLYCOL 17 GM PKG PO SCH ×3 (09:00→20:44)
[2017-03-02 09:07] LABS: POTASSIUM 4.1 MEQ/L (3.5-5.1)
[2017-03-02 09:09] LABS: AUTOMATED NEUTROPHIL # 5.6 TH/MM3 (1.8-7.7); BASOPHIL # 0.1 TH/MM3 (0-0.2); EOSINOPHIL # 0.1 TH/MM3 (0-0.4); EOSINOPHIL % 0.9 % (0.0-4.0); HEMATOCRIT 30.7 % (35.0-46.0); LYMPH % 26.2 % (9.0-44.0); LYMPHOCYTE # 2.2 TH/MM3 (1.0-4.8); MEAN CELL VOLUME 60.5 FL (80.0-100.0); MEAN CORPUSCULAR HEMOGLOBIN 18.3 PG (27.0-34.0); MEAN CORPUSCULAR HGB CONC 30.2 % (32.0-36.0); NEUT % 65.9 % (16.0-70.0); PLATELET COUNT 148 TH/MM3 (150-450); RED BLOOD COUNT 5.08 MIL/MM3 (4.00-5.30); RED CELL DISTRIBUTION WIDTH 20.5 % (11.6-17.2); WHITE BLOOD COUNT 8.5 TH/MM3 (4.0-11.0)
[2017-03-02 09:15] LABS: HEMO FLAGS AUTO DIFF
[2017-03-02] MEDS: PANTOPRAZOLE SOD 40 MG DELAYED RELEASE TAB PO SCH (09:32)
[2017-03-02] MEDS: CHOLECALCIFEROL (VIT D3) 1000 UNIT TAB PO SCH (09:32)
[2017-03-02] MEDS: FLUDROCORTISONE ACETATE 0.1 MG TAB PO SCH (09:32)
[2017-03-02 10:30] LABS: ACANTHOCYTES 1+ (NORMAL); KERATOCYTES OCC (NORMAL); OVALOCYTES 1+ (NORMAL)
[2017-03-02 10:31] LABS: SCAN/DIFF AUTO DIFF CONFIRMED
--- NOTE | 2017-03-02 12:37 | HHI.PR ---
Subjective Remarks Still taking in very little po. Complains of nausea. No emesis. No BM yest. Requests increase dose Miralax Left hip pain under adequate control with medication Current Medications Medications (Trade) Dose Ordered Sig/Anneliese Route Start Time Stop Time Status Last Admin (Zofran Inj) 4 mg Q6H PRN IV PUSH 02/25/17 20:45 03/02/17 10:31 (Percocet 5-325 Mg) 1 tab Q6H PRN PO 02/25/17 23:30 03/02/17 04:23 (Vitamin D3) 1,000 units DAILY PO 02/26/17 09:00 03/02/17 09:32 (Florinef) 0.1 mg DAILY PO 02/26/17 09:00 03/02/17 09:32 (Synthroid) 56 mcg MoWeFr@0600 PO 02/26/17 06:00 03/01/17 10:13 (Ativan) 0.5 mg Q4H PRN PO 02/25/17 23:45 03/02/17 04:23 (Miralax) 17 gm DAILY PO 02/26/17 09:00 03/02/17 09:35 (Synthroid) 62.5 mcg SuTuThSa@0600 PO 02/27/17 06:00 03/02/17 04:31 (Protonix) 40 mg DAILY PO 02/26/17 09:00 03/02/17 09:32 (Pill Splitter) 1 ea UNSCH PRN OTHER 02/26/17 00:15 (Synthroid) 12.5 mcg MoWeFr@0600 PO 02/26/17 06:00 03/01/17 10:13 (Tenormin) 25 mg DAILY@0100,0800,1500 PO 02/26/17 15:00 03/02/17 09:41 (Deltasone) 3 mg DAILY@1500 PO 02/27/17 15:00 03/01/17 15:26 (Deltasone) 2 mg DAILY@0000 PO 02/27/17 00:00 03/02/17 00:01 (Deltasone) 6 mg DAILY PO 02/27/17 09:00 03/02/17 09:34 Potassium Chloride/Sodium Chloride 1,000 ml @ 84 mls/hr [id number] IV 02/27/17 12:00 03/02/17 04:24 (Miralax) 17 gm DAILY PO 03/01/17 09:00 03/01/17 10:03 Objective Vital Signs Date Time Temp Pulse Resp B/P (MAP) Pulse Ox O2 Delivery O2 Flow Rate FiO2 03/02/17 08:00 97.5 66 18 96/53 (67) 94 03/02/17 00:05 96.8 62 18 104/65 (78) 97 03/01/17 20:05 96.9 69 18 112/67 (82) 98 03/01/17 16:00 96.7 71 17 111/54 (73) 99 I/O 03/01/17 03/01/17 03/01/17 03/02/17 03/02/17 03/02/17 06:59 14:59 22:59 06:59 14:59 22:59 Intake Total 360 ml 240 ml 360 ml 120 ml Balance 360 ml 240 ml 360 ml 120 ml Intake Oral 360 ml 240 ml 360 ml 120 ml # Voids 1 4 3 2 # Bowel Movements 0 1 0 0 CV: RRR Lungs; CTa Abd: soft, NT, mod distention, +BS Result Diagram: 03/02/17 07503/02/17 075 Assessment and Plan Problem List: (1) Nausea ICD Codes: R11.0 - Nausea Status: Acute Plan: GI work-up in progress. EGD tomorrow Cont IVF. Diet as tolerated (2) Gastroparesis ICD Codes: K31.84 - Gastroparesis Status: Chronic Plan: Cont Azithromycin drug holiday. GI work-up in progress (3) Iron deficiency anemia ICD Codes: D50.9 - Iron deficiency anemia, unspecified Status: Chronic Plan: Patient refused iron infusion. Aware of risk of worsening anemia. Hematology has signed off (4) Hypothyroidism ICD Codes: E03.9 - Hypothyroidism, unspecified Status: Chronic Plan: Continue with current regimen of Synthroid. Patient has frequent thyroid labs as outpatient. No need to recheck at this time (5) Dysautonomia ICD Codes: G90.9 - Disorder of the autonomic nervous system, unspecified Status: Chronic Plan: She has Postural Orthostatic Tachycardia Syndrome. Cont Atenolol and Florinef (6) Addisons disease ICD Codes: E27.1 - Primary adrenocortical insufficiency Status: Chronic Plan: Cont steroids. Solucortef oncall to EGD (7) Anxiety ICD Codes: F41.9 - Anxiety disorder, unspecified Status: Chronic Plan: Cont Lorazepam as needed (8) Left hip pain ICD Codes: M25.552 - Pain in left hip Status: Chronic Plan: Oxycodone prn Assessment and Plan Patient's significant other present during entire visit. Problem Qualifiers (1) Iron deficiency anemia: Qualified Codes: D50.8 - Other iron deficiency anemias (2) Hypothyroidism: Qualified Codes: E03.9 - Hypothyroidism, unspecified Andres Duron MD Mar 02, 2017 12:37
[2017-03-03] MEDS: LEVOTHYROXINE SODIUM 112 MCG TAB PO SCH (04:54)
[2017-03-03] MEDS: LEVOTHYROXINE SODIUM 25 MCG TAB PO SCH (04:54)
[2017-03-03] MEDS: oxyCODONE/ACETAMINOPHEN 5 MG/325 MG TAB PO PRN ×3 (04:55→20:57)
[2017-03-03 08:00] VITALS: BP 111/54; PULSE 67; RESP 18; TEMP 97.9; O2SAT 96
[2017-03-03] MEDS: FLUDROCORTISONE ACETATE 0.1 MG TAB PO SCH (08:13)
[2017-03-03] MEDS: PANTOPRAZOLE SOD 40 MG DELAYED RELEASE TAB PO SCH (08:13)
[2017-03-03] MEDS: predniSONE 1 MG TAB PO SCH ×2 (08:13→15:44)
[2017-03-03] MEDS: ATENOLOL 25 MG TAB PO SCH ×3 (08:13→15:45)
[2017-03-03] MEDS: POLYETHYLENE GLYCOL 17 GM PKG PO SCH ×2 (08:14→20:52)
[2017-03-03] MEDS ORDERED: HYDROCORTISONE SOD SUCCINATE 100 MG VIAL IV PUSH ONE (09:00)
[2017-03-03] MEDS: CHOLECALCIFEROL (VIT D3) 1000 UNIT TAB PO SCH (09:00)
[2017-03-03] MEDS: ONDANSETRON HCL 4 MG/2 ML VIAL IV PUSH PRN ×3 (09:41→21:52)
[2017-03-03] MEDS: LORazepam 0.5 MG TAB PO PRN (09:41)
[2017-03-03] MEDS ORDERED: ONABOTULINUMTOXINA INJ 100 UNITS/VIAL ONE (10:30)
[2017-03-03 12:00] VITALS: BP 115/69; PULSE 62; RESP 18; TEMP 97.8; O2SAT 96
[2017-03-03] MEDS ORDERED: MIDAZOLAM HCL 2 MG/2 ML VIAL ONE (12:49)
--- NOTE | 2017-03-03 13:17 | GIPROC ---
[facility] [address] [facility]. [facility], [address] EGD PROCEDURE REPORT EXAM DATE: 03/03/2017 PATIENT NAME: Jennifer Raines MR #: [id number] BIRTHDATE: 1960 ATTENDING: Aurelio Shearer MD ORDER #: [id number] WIRE TECHNICIAN: Anup Villela and Arianna Fraire STATUS: inpatient INDICATIONS: The patient is a 56 yr old female here for an EGD due to Eary satiety, gastroparesis; fulness/nausea in the throat area with any oral intake. PROCEDURE PERFORMED: EGD w/ dilation of esophagus via guidewire MEDICATIONS: Per Anesthesia. TOPICAL ANESTHETIC: None CONSENT: The patient understands the risks and benefits of the procedure and understands that these risks include, but are not limited to: sedation, allergic reaction, infection, perforation and/or bleeding. Alternative means of evaluation and treatment include, among others: physical exam, x-rays, and/or surgical intervention. The patient elects to proceed with this endoscopic procedure. medical equipment was checked for proper function. Hand hygiene and appropriate measures for infection prevention was taken. After the risks, benefits and alternatives of the procedure were thoroughly explained, Informed consent was verified, confirmed and timeout was successfully executed by the treatment team. The patient was anesthetized with topical anesthesia and the Pentax [id number] endoscope was introduced through the mouth and advanced to the second portion of the duodenum. Retroflexion was performed and was normal The gastroscope was then slowly withdrawn and removed. ESOPHAGUS: The mucosa of the esophagus appeared normal. Over a guidewire, 16mm and 17mm Savary dilators were passed in succession with mild and mild-moderate resistance met at the level of the UES and along the esophagus. STOMACH: A small amount of bilious fluid was present in the dependent portion of the stomach. Two fundic gland polyps were noted in the gastric body. The pylorus was not stenotic. DUODENUM: The duodenal mucosa appeared normal. ADVERSE EVENTS: There were no complications. IMPRESSIONS: 1. The esophagus appeared normal Dilation was performed with resistance met, sugesting an esophageal motor disorder. 2. A small amount of bilious fluid was present in the dependent portion of the stomach. Two fundic gland polyps were noted in the gastric body 3. The pylorus was not stenotic 4. Normal duodenal mucosa 5. Retroflexion was performed and was normal RECOMMENDATIONS: Continue gastroparesis diet; avoid cold fluid/foods and drink warm liquids, especially before and with pills and meals. PATIENT CONDITION: stable DISPOSITION: Inpatient REPEAT EXAM: Aurelio Shearer MD eSigned: Aurelio Shearer MD 03/03/2017 1:17 PM cc: Andres Duron M.D. PATIENT NAME: Jennifer Raines MR#: [id number]
[2017-03-03] MEDS ORDERED: PROPOFOL 200 MG/20 ML AMP IV ONE (13:45)
[2017-03-03 16:00] VITALS: BP 114/66; PULSE 69; RESP 18; TEMP 97.5; O2SAT 94
--- NOTE | 2017-03-03 17:05 | EKG ---
Date Performed: 03/02/2017 Time Performed: 22:41:43 PTAGE: 56 years EKG: SINUS BRADYCARDIA POSSIBLE INFERIOR MYOCARDIAL INFARCTION , PROBABLY OLD MODERATE T-WAVE AB NORMALITY, CONSIDER ANTERIOR ISCHEMIA Since previous tracing, no significant change noted ABNORMAL EC G PREVIOUS TRACING : 02/01/2015 21.45 DOCTOR: Thalia Martin Interpretating Date/Time 03/03/2017 17:02:05
--- NOTE | 2017-03-03 18:20 | HHI.PR ---
Subjective Remarks S/P EGD with dilation. Patient found to have esophageal motility disorder. Still has nausea. Has not yet eaten since procedure. Complains of left laryngeal discomfort worse with swallowing since procedure. Current Medications Medications (Trade) Dose Ordered Sig/Anneliese Route Start Time Stop Time Status Last Admin (Zofran Inj) 4 mg Q6H PRN IV PUSH 02/25/17 20:45 03/03/17 15:44 (Percocet 5-325 Mg) 1 tab Q6H PRN PO 02/25/17 23:30 03/03/17 15:44 (Vitamin D3) 1,000 units DAILY PO 02/26/17 09:00 03/02/17 09:32 (Florinef) 0.1 mg DAILY PO 02/26/17 09:00 03/03/17 08:13 (Synthroid) 56 mcg MoWeFr@0600 PO 02/26/17 06:00 03/03/17 04:54 (Ativan) 0.5 mg Q4H PRN PO 02/25/17 23:45 03/03/17 09:41 (Synthroid) 62.5 mcg SuTuThSa@0600 PO 02/27/17 06:00 03/02/17 04:31 (Protonix) 40 mg DAILY PO 02/26/17 09:00 03/03/17 08:13 (Pill Splitter) 1 ea UNSCH PRN OTHER 02/26/17 00:15 (Synthroid) 12.5 mcg MoWeFr@0600 PO 02/26/17 06:00 03/03/17 04:54 (Tenormin) 25 mg DAILY@0100,0800,1500 PO 02/26/17 15:00 03/03/17 15:45 (Deltasone) 3 mg DAILY@1500 PO 02/27/17 15:00 03/03/17 15:44 (Deltasone) 2 mg DAILY@0000 PO 02/27/17 00:00 03/02/17 23:59 (Deltasone) 6 mg DAILY PO 02/27/17 09:00 03/03/17 08:13 Potassium Chloride/Sodium Chloride 1,000 ml @ 84 mls/hr [id number] IV 02/27/17 12:00 03/02/17 23:59 (Miralax) 17 gm BID PO 03/02/17 21:00 03/03/17 08:14 Lactated Ringer's 1,000 ml @ 30 mls/hr Q24H PRN IV 03/03/17 22:45 03/06/17 22:44 Sodium Chloride 500 ml @ 30 mls/hr [id number] PRN IV 03/03/17 22:45 03/06/17 22:44 (Betadine 5% Antisepsis Kit) 1 applic INFRASTRUCTURE SECURITY ARCHITECT PRN EACH NARE 03/03/17 22:45 03/06/17 22:44 (Chlorhexidine 2% Cloth) 3 pack INFRASTRUCTURE SECURITY ARCHITECT PRN TOPICAL 03/03/17 22:45 03/06/17 22:44 (NovoLIN R INJ) See Protocol Table ... INFRASTRUCTURE SECURITY ARCHITECT PRN SQ 03/03/17 22:45 03/06/17 22:44 Objective Vital Signs Date Time Temp Pulse Resp B/P (MAP) Pulse Ox O2 Delivery O2 Flow Rate FiO2 03/03/17 16:00 97.5 69 18 114/66 (82) 94 03/03/17 13:25 97.2 79 16 117/67 (84) 95 03/03/17 12:00 97.8 62 18 115/69 (84) 96 03/03/17 08:00 97.9 67 18 111/54 (73) 96 03/02/17 23:08 96.7 69 17 109/55 (73) 98 03/02/17 19:27 99 03/02/17 19:04 97.8 71 18 96/54 (68) 99 I/O 03/02/17 03/02/17 03/02/17 03/03/17 03/03/17 03/03/17 07:00 15:00 23:00 07:00 15:00 23:00 Intake Total 120 ml 600 ml 1174 ml 479 ml 200 ml Balance 120 ml 600 ml 1174 ml 479 ml 200 ml Intake Oral 120 ml 600 ml 480 ml 0 ml 0 ml IV Total 694 ml 479 ml Other 200 ml # Voids 2 3 3 4 3 # Bowel Movements 0 1 0 0 0 Neck; supple, No Lymphadenopathy, thyromegaly, masses or adenopathy. Trachea midline. Focal tenderness to left of larynx. no masses. Full ROM CV: RRR Lungs: CTA Abd: soft, NT, ND, +BS Result Diagram: 03/02/17 0751 03/02/17 0751 Assessment and Plan Problem List: (1) Nausea ICD Codes: R11.0 - Nausea Status: Acute Plan: Patient with esophageal motility disorder. S/P Dilation. Will discuss further options for treatment of nausea with Dr Shearer. Patient needs fpc solution for need for adequate nutrition and hydration. Left sided neck pain can be related to muscular strain from neck positioning vs nerve impingement vs perforation from dilation. Perforation very unlikely due to lack of visible distress. Cont warm compresses. Will follow (2) Gastroparesis ICD Codes: K31.84 - Gastroparesis Status: Chronic Plan: Cont Azithromycin drug holiday. Discuss treatment options with Dr Shearer (3) Iron deficiency anemia ICD Codes: D50.9 - Iron deficiency anemia, unspecified Status: Chronic Plan: Patient refused iron infusion. Aware of risk of worsening anemia. Hematology has signed off (4) Hypothyroidism ICD Codes: E03.9 - Hypothyroidism, unspecified Status: Chronic Plan: Continue with current regimen of Synthroid. Patient has frequent thyroid labs as outpatient. No need to recheck at this time (5) Dysautonomia ICD Codes: G90.9 - Disorder of the autonomic nervous system, unspecified Status: Chronic Plan: She has Postural Orthostatic Tachycardia Syndrome. Cont Atenolol and Florinef (6) Addisons disease ICD Codes: E27.1 - Primary adrenocortical insufficiency Status: Chronic Plan: Cont steroids. (7) Anxiety ICD Codes: F41.9 - Anxiety disorder, unspecified Status: Chronic Plan: Cont Lorazepam as needed (8) Left hip pain ICD Codes: M25.552 - Pain in left hip Status: Chronic Plan: Oxycodone prn Assessment and Plan Patient's significant other present during entire visit. Problem Qualifiers (1) Iron deficiency anemia: Qualified Codes: D50.8 - Other iron deficiency anemias (2) Hypothyroidism: Qualified Codes: E03.9 - Hypothyroidism, unspecified Andres Duron MD Mar 03, 2017 18:20
--- NOTE | 2017-03-03 18:33 | MH ---
cc: ERIN CASAS M.D. DATE OF ADMISSION 02/27/2017 ADMISSION DIAGNOSIS Nausea, vomiting, dehydration. HISTORY OF PRESENT ILLNESS This 56-year-old white female well-known to the undersigned physician has a complex past medical history including history of gastroparesis. The patient recently has had increasing difficulty with eating due to nausea. She normally takes azithromycin 250 mg every other day for the gastroparesis but states that it has not been helping, her oral intake has decreased due to the increasing nausea. She has Zofran at home which she has been using regularly but it has not been as effective as it was previously. She cannot take any other promotility agent or antinausea medicines due to allergic reactions and side effects. The patient has had less bowel movements, more abdominal distension. She denies any fever or chills. She has had no emesis. She has had no melena or hematochezia. The patient has become progressively weaker and she has spoken with her photographer portrait who feels that she needs further evaluation. Due to the patient's complex medical history, she would be best served to undergo the evaluation in the hospital. The patient clinically appears to be mildly dehydrated which increases her risk of complications from her Brule's disease and her autonomic dysfunction. PAST MEDICAL HISTORY Her past medical history is significant for: 1. Brule's disease. 2. Gastroparesis. 3. Dysautonomia with postural orthostatic tachycardia syndrome. 4. She is positive for lupus anticoagulant antibody. 5. 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 6. She is positive for Sjogren's antibody. 7. She has a history of anxiety, panic and PTSD. 8. The patient has hyperlipidemia. 9. Remote history of idiopathic thrombocytopenic purpura. 10. Osteoporosis. 11. Raynaud's phenomenon. 12. She has beta thalassemia minor. 13. She has a history of a T7 compression fracture due to severe osteoporosis. 14. She has a 2 mm kidney stone found incidentally in 2013. 15. She had a right humerus fracture in 2014. 16. She had a left hip fracture with subsequent left hip replacement in 2011. She has been having chronic left hip and buttocks pain since then. 17. She is status post partial hysterectomy in 2000. 18. She had three previous sections in 1983, 1985 and in 1995. 19. The patient is status post left total hip replacement due to her fracture in 2011. 20. She has a history of iron deficiency anemia but is unable to tolerate oral or IV iron supplements. 21. She has severe osteoporosis. MEDICATIONS Her current medications are: 1. Colace 100 mg daily as needed for constipation. 2. Zofran ODT 4 mg 1 tablet every 6-8 hours as needed for nausea. 3. Azithromycin 200 mg per 5 ml, 5 ml every other day. 4. Nexium 40 mg daily. 5. Synthroid 137 mcg 1/2 tablet three times a week and 125 mcg 1/2 tablet four times a week. 6. Prednisone 1 mg 2 tablets at 02:00 a.m., 2 tablets at 06:00 a.m., 3 tablets at 10:00 a.m. and 3 tablets at 2 p.m. 7. Vitamin D 2000 international units daily. 8. Fluticasone nasal spray 2 sprays in each nostril daily. 9. Enteric-coated aspirin 81 mg daily. 10. Oxycodone / APAP 5/325 mg 1 tablet at 6 hours as needed for pain. 11. Atenolol 25 mg three times daily. 12. Estrace cream 0.1 mg per gram, 1/2 gram intravaginal twice weekly. 13. Betamethasone propionate cream apply to effected area twice daily as needed. 14. Potassium chloride ER 10 mEq twice daily. 15. Fludrocortisone 0.1 mg 1 tablet daily. 16. Lorazepam 1 mg one-half to one tablet three times a day as needed for anxiety. 17. MiraLax 17 grams in 8 ounces of liquid twice a day. ALLERGIES SHE HAS ALLERGIES TO COMPAZINE, IV CONTRAST SULFA, PENICILLIN, NSAIDS, H2 BLOCKERS, ADENOSINE, AMOXICILLIN, IODINE, PROMETHAZINE AND REGLAN. FAMILY HISTORY Positive for mother with dementia, hemorrhoids, hypertension and hyperlipidemia. Father had a stroke, kidney stones and hemorrhoids. Her siblings have anemia and hemorrhoids. SOCIAL HISTORY She is disabled. She is . She lives with a significant other. She does not smoke nor did she ever. She does not consume alcohol. REVIEW OF SYSTEMS Negative except as outlined above. PHYSICAL EXAMINATION VITAL SIGNS: Upon arrival to the hospital, the patient's blood pressure was 95/52 with a heart rate of 71, respirations 18, temperature is 97 degrees Fahrenheit orally. GENERAL: In general this is a well-nourished, well-developed middle-aged white female appearing in mild to moderate distress due to the above-mentioned symptoms. HEENT: Pupils equal, round, reactive to light. Extraocular muscles intact. Sclerae anicteric. The conjunctive are pink. Nares patent without discharge. Mouth and throat reveal dry mucous membranes. No erythema, exudates. Dentition is good. NECK: Supple without lymphadenopathy, JVD, bruits or thyromegaly. CARDIOVASCULAR: Regular rate and rhythm without murmurs, rubs or gallops. LUNGS: Clear to auscultation without wheezes, rhonchi or rales. ABDOMEN: The abdomen is moderately distended, soft, nontender. Bowel sounds present. No mass or palpable splenomegaly. GENITOURINARY: Deferred. RECTAL: Deferred. EXTREMITIES: Lower extremities reveal no appreciable edema. No calf tenderness or Homans' sign. NEUROLOGIC: Emanation reveals the patient is awake, alert, oriented x3. Speech intact. Cranial nerves intact. No lateralizing deficits. Gait was normal. Speech is within normal limits. There are no short-term memory or cognitive deficits. Mood is good. Affect appropriate. MUSCULOSKELETAL: Examination reveals a limb length discrepancy with the left lower extremity significantly shorter than the right. Back and spine reveal no significant scoliosis. There is some mild kyphosis. IMPRESSION AND PLAN This middle-aged white female with a long history of gastroparesis. Brule's disease and dysautonomia has had increasing nausea with decreased oral intake. She is mildly dehydrated. The patient has not done well with Zofran which normally would help with her nausea. The exact underlying etiology of this nausea and decreased appetite is unclear. The patient will be placed on observation for further evaluation. We will provide her some IV fluids to correct her dehydration. We will check renal function and electrolytes. We will follow H&H due to her history of anemia and if necessary will consult hematology for assistance with treating the iron-deficiency anemia based on the patient's difficulty tolerating iron supplements. We will consult gastroenterology for assistance with a GI evaluation and we will provide the patient with usual medications and monitor her vital signs closely. Will monitor electrolytes and make further recommendations pending the patient's response to initial therapeutic interventions and the results of the initial evaluation. MD MIKEY Devi /5:02 PM 5:52 PM
[2017-03-03 19:56] VITALS: BP 113/64; PULSE 69; RESP 17; TEMP 97.8; O2SAT 99
[2017-03-03] MEDS ORDERED: PHENOL 1.4% SOLN 180 ML BTL PO PRN (21:30)
[2017-03-03] MEDS ORDERED: HYDROmorphone HCL PF 1 MG/ML VIAL IV ONE (21:30)
[2017-03-03] MEDS: NS + KCL 20 MEQ INJ 1,000 ML IV SCH (21:46)
[2017-03-03] MEDS ORDERED: CHLORHEXIDINE GLUCONATE 2 % 1 PACK (2 CLOTHS) TOPICAL PRN (22:45)
[2017-03-03] MEDS ORDERED: LACTATED RINGER'S 1000 ML IV PRN (22:45)
[2017-03-03] MEDS ORDERED: INSULIN HUMAN REGULAR 1,000 UNITS/10 ML VIAL SQ PRN (22:45)
[2017-03-03] MEDS ORDERED: SODIUM CHLORID 0.9% 500 ML IV PRN (22:45)
[2017-03-03] MEDS ORDERED: POVIDONE IODINE 5% (ANTISEPSIS KIT) 4 APPLICATIONS EACH NARE PRN (22:45)
[2017-03-04 00:16] VITALS: BP 112/64; PULSE 60; RESP 18; TEMP 96.8; O2SAT 97
[2017-03-04] MEDS: LORazepam 0.5 MG TAB PO PRN ×3 (00:22→20:20)
[2017-03-04] MEDS: predniSONE 1 MG TAB PO SCH ×3 (00:22→15:40)
[2017-03-04] MEDS: ATENOLOL 25 MG TAB PO SCH ×3 (00:23→15:44)
[2017-03-04] MEDS: oxyCODONE/ACETAMINOPHEN 5 MG/325 MG TAB PO PRN ×5 (00:24→20:24)
[2017-03-04] MEDS: ONDANSETRON HCL 4 MG/2 ML VIAL IV PUSH PRN ×4 (04:05→21:39)
[2017-03-04] MEDS: LEVOTHYROXINE SODIUM 112 MCG TAB PO SCH (04:07)
[2017-03-04] MEDS: LEVOTHYROXINE SODIUM 25 MCG TAB PO SCH (04:07)
[2017-03-04 04:14] VITALS: BP 104/59; PULSE 66; RESP 18; TEMP 97.2; O2SAT 98
[2017-03-04] MEDS: LEVOTHYROXINE SODIUM 125 MCG TAB PO SCH (06:00)
[2017-03-04 06:02] LABS: AUTOMATED NEUTROPHIL # 6.6 TH/MM3 (1.8-7.7); BASOPHIL # 0.1 TH/MM3 (0-0.2); BASOPHIL % 0.6 % (0.0-2.0); EOSINOPHIL # 0.1 TH/MM3 (0-0.4); EOSINOPHIL % 0.7 % (0.0-4.0); HEMATOCRIT 29.4 % (35.0-46.0); LYMPH % 21.5 % (9.0-44.0); MEAN CELL VOLUME 60.5 FL (80.0-100.0); MEAN CORPUSCULAR HEMOGLOBIN 17.8 PG (27.0-34.0); MONO % 6.3 % (0.0-8.0); NEUT % 70.9 % (16.0-70.0); PLATELET COUNT 154 TH/MM3 (150-450); RED BLOOD COUNT 4.86 MIL/MM3 (4.00-5.30); RED CELL DISTRIBUTION WIDTH 20.7 % (11.6-17.2); WHITE BLOOD COUNT 9.4 TH/MM3 (4.0-11.0)
[2017-03-04 06:09] LABS: HEMO FLAGS AUTO DIFF; MEAN CORPUSCULAR HGB CONC 29.4 % (32.0-36.0)
[2017-03-04 06:34] LABS: ANION GAP 7 MEQ/L (5-15); AST (GOT) 12 U/L (15-37); BICARBONATE 27.2 MEQ/L (21.0-32.0); BLOOD UREA NITROGEN 13 MG/DL (7-18); CHLORIDE 108 MEQ/L (98-107); GLOMERULAR FILTRATION RATE 93 ML/MIN (>89); POTASSIUM 3.9 MEQ/L (3.5-5.1); SODIUM (NA) 142 MEQ/L (136-145)
[2017-03-04 06:42] LABS: ALKALINE PHOSPHATASE 42 U/L (45-117); ALT (GPT) 20 U/L (10-53); TOTAL BILIRUBIN ADULT 0.4 MG/DL (0.2-1.0)
--- NOTE | 2017-03-04 07:00 | HHI.GIFU ---
GI Follow-up Note Consult Follow-up Subjective: Patient laying in bed and still complaining of pain in the left side of the neck with radiation to the ear, left nostril and left forehead. Objective: PHYSICAL EXAMINATION: Vitals signs stable No fever HEENT: Pupils round and reactive to light; normocephalic; atraumatic; no jaundice. NECK: Neck is supple, no lymphadenopathy; there is tenderness along the SCM muscle distribution; no crepitus. TREATMENT PLANT OPERATOR: alert and oriented times three. Available Data (labs, X- Rays, Procedues) : ASSESSMENT/PLAN:Severe gastroparesis. She'd like to speak with Dr. Cayetano Nichole about consideration of a J-tube ( a G/J tube is a consideration as well.) We'll continue warm compresses or dry heat to the neck to help the muscle discomfort that developed after the esophageal dilation. It was a pleasure seeing Jennifer Raines. Entered by: Aurelio Haines MD Mar 04, 2017 07:00
[2017-03-04 08:00] VITALS: BP 111/67; PULSE 60; RESP 18; TEMP 98.6; O2SAT 99
[2017-03-04 08:20] LABS: ACANTHOCYTES 1+ (NORMAL); OVALOCYTES 1+ (NORMAL); PLATELET ESTIMATE SMEAR LOW (NORMAL); PLATELET MORPHOLOGY ENLARGED (NORMAL); SCAN/DIFF AUTO DIFF CONFIRMED; TEARDROP RBCS 1+ (NORMAL)
[2017-03-04] MEDS: FLUDROCORTISONE ACETATE 0.1 MG TAB PO SCH (09:03)
[2017-03-04] MEDS: CHOLECALCIFEROL (VIT D3) 1000 UNIT TAB PO SCH (09:03)
[2017-03-04] MEDS: PANTOPRAZOLE SOD 40 MG DELAYED RELEASE TAB PO SCH (09:04)
[2017-03-04] MEDS: POLYETHYLENE GLYCOL 17 GM PKG PO SCH ×2 (09:04→20:20)
[2017-03-04] MEDS: NS + KCL 20 MEQ INJ 1,000 ML IV SCH (12:09)
--- NOTE | 2017-03-04 12:44 | HHI.PR ---
Subjective Remarks Pain in neck improving slowly. Took small amount for breakfast. Previous dysphagia symptoms improved. Still nauseated. Small BM overnight. Was OOB ambulating in halls Current Medications Medications (Trade) Dose Ordered Sig/Anneliese Route Start Time Stop Time Status Last Admin (Zofran Inj) 4 mg Q6H PRN IV PUSH 02/25/17 20:45 03/04/17 10:14 (Vitamin D3) 1,000 units DAILY PO 02/26/17 09:00 03/04/17 09:03 (Florinef) 0.1 mg DAILY PO 02/26/17 09:00 03/04/17 09:03 (Synthroid) 56 mcg MoWeFr@0600 PO 02/26/17 06:00 03/04/17 04:07 (Ativan) 0.5 mg Q4H PRN PO 02/25/17 23:45 03/04/17 04:06 (Synthroid) 62.5 mcg SuTuThSa@0600 PO 02/27/17 06:00 03/02/17 04:31 (Protonix) 40 mg DAILY PO 02/26/17 09:00 03/04/17 09:04 (Pill Splitter) 1 ea UNSCH PRN OTHER 02/26/17 00:15 (Synthroid) 12.5 mcg MoWeFr@0600 PO 02/26/17 06:00 03/04/17 04:07 (Tenormin) 25 mg DAILY@0100,0800,1500 PO 02/26/17 15:00 03/04/17 09:03 (Deltasone) 3 mg DAILY@1500 PO 02/27/17 15:00 03/03/17 15:44 (Deltasone) 2 mg DAILY@0000 PO 02/27/17 00:00 03/04/17 00:22 (Deltasone) 6 mg DAILY PO 02/27/17 09:00 03/04/17 09:04 Potassium Chloride/Sodium Chloride 1,000 ml @ 84 mls/hr [id number] IV 02/27/17 12:00 03/04/17 12:09 (Miralax) 17 gm BID PO 03/02/17 21:00 03/04/17 09:04 Lactated Ringer's 1,000 ml @ 30 mls/hr Q24H PRN IV 03/03/17 22:45 9/2/17 22:44 Sodium Chloride 500 ml @ 30 mls/hr [id number] PRN IV 03/03/17 22:45 03/06/17 22:44 (Betadine 5% Antisepsis Kit) 1 applic SURGICAL PHYSICIAN ASSISTANT PRN EACH NARE 03/03/17 22:45 03/06/17 22:44 (Chlorhexidine 2% Cloth) 3 pack SURGICAL PHYSICIAN ASSISTANT PRN TOPICAL 03/03/17 22:45 03/06/17 22:44 (NovoLIN R INJ) See Protocol Table ... SURGICAL PHYSICIAN ASSISTANT PRN SQ 03/03/17 22:45 03/06/17 22:44 (Percocet 5-325 Mg) 1 tab Q4H PRN PO 03/03/17 21:30 03/04/17 09:05 (Chloraseptic [place]) 2 spray Q2H PRN PO 03/03/17 21:30 03/04/17 00:25 Objective Vital Signs Date Time Temp Pulse Resp B/P (MAP) Pulse Ox O2 Delivery O2 Flow Rate FiO2 03/04/17 08:00 98.6 60 18 111/67 (82) 99 03/04/17 04:14 97.2 66 18 104/59 (74) 98 03/04/17 00:16 96.8 60 18 112/64 (80) 97 03/03/17 19:56 97.8 69 17 113/64 (80) 99 03/03/17 16:00 97.5 69 18 114/66 (82) 94 03/03/17 13:25 97.2 79 16 117/67 (84) 95 I/O 03/03/17 03/03/17 03/03/17 03/04/17 03/04/17 03/04/17 07:00 15:00 23:00 07:00 15:00 23:00 Intake Total 479 ml 200 ml 360 ml 1210 ml Balance 479 ml 200 ml 360 ml 1210 ml Intake Oral 0 ml 0 ml 360 ml 240 ml IV Total 479 ml 970 ml Other 200 ml # Voids 4 3 3 3 # Bowel Movements 0 0 0 0 CV: RRR Lungs: CTA Abd: soft, NT, +BS, Mod distention Result Diagram: 03/04/1753503/04/17535 Assessment and Plan Problem List: (1) Nausea ICD Codes: R11.0 - Nausea Status: Acute Plan: Patient with esophageal motility disorder. S/P Dilation. Dysphagia symptoms improved S/P dilation. neck pain improving (2) Gastroparesis ICD Codes: K31.84 - Gastroparesis Status: Chronic Plan: Persistent nausea. Discuss treatment options with Dr Shearer (3) Iron deficiency anemia ICD Codes: D50.9 - Iron deficiency anemia, unspecified Status: Chronic Plan: Patient refused iron infusion. Aware of risk of worsening anemia. Hematology has signed off (4) Hypothyroidism ICD Codes: E03.9 - Hypothyroidism, unspecified Status: Chronic Plan: Continue with current regimen of Synthroid. Patient has frequent thyroid labs as outpatient. No need to recheck at this time (5) Dysautonomia ICD Codes: G90.9 - Disorder of the autonomic nervous system, unspecified Status: Chronic Plan: She has Postural Orthostatic Tachycardia Syndrome. Cont Atenolol and Florinef (6) Addisons disease ICD Codes: E27.1 - Primary adrenocortical insufficiency Status: Chronic Plan: Wean Steroids back to physiologic dosing (7) Anxiety ICD Codes: F41.9 - Anxiety disorder, unspecified Status: Chronic Plan: Cont Lorazepam as needed (8) Left hip pain ICD Codes: M25.552 - Pain in left hip Status: Chronic Plan: Oxycodone prn Assessment and Plan Patient's significant other present during entire visit. Problem Qualifiers (1) Iron deficiency anemia: Qualified Codes: D50.8 - Other iron deficiency anemias (2) Hypothyroidism: Qualified Codes: E03.9 - Hypothyroidism, unspecified Andres Duron MD Mar 04, 2017 12:44
--- NOTE | 2017-03-04 13:16 | MB ---
cc: ANDER POLANCO M.D., JASON RIVERA,WILY GEORGES,CLAUDIA NGUYỄN,SILAS Felton MD DATE OF DICTATION 03/03/17 DATE OF 1960 ADDENDUM I performed the patient's panendoscopy with esophageal dilation earlier today. Mild to moderate resistance was met at the level of the upper esophageal sphincter and along the length of the esophagus with passage of 16 and 17-mm Savary dilators. She is having mild to moderate discomfort in the left side of the neck. There is no crepitus. There is minimal tenderness. I expect this to subside over the next 24-48 hours with application of warm compresses. We discussed her overall GI status including her severe gastroparesis. She has had this for many, many years. Multiple gastric emptying studies have confirmed severe gastroparesis, with no emptying up to 2 hours and minimal emptying even up to 5 hours after consuming a test meal. She has tried various promotility agents and even the azithromycin she takes has not helped dramatically. She has taken short drug holidays from this medication intermittently and even after resuming the product she sees minimal benefit. The nausea and early satiety are severe. Recently, medical marijuana has helped to some degree. She is eating very little nutrition per day and drinking very little fluid per day. She has iron deficiency anemia, in addition to her known thalassemia. There has been no evidence of iron malabsorption or blood loss from the gastrointestinal or urologic or gynecologic systems. I suspect her iron deficiency is related to poor nutritional intake as she eats essentially no meat and almost no green vegetables. Discussion has been made regarding intravenous iron infusions. This may be logical. She has had so many reactions to some of the other medications that this may need to be considered in multiple small infusions rather any one large infusion. With respect to the constipation once she received intravenous fluids her bowels work better. Her chronic dehydration status prevents adequate fluid in the intestinal tract to keep the stools a good consistency. She is taking MiraLax twice per day. We discussed Linzess but this may cause severe diarrhea even with a single dose as has been documented in many patients. Alternatively, we can consider a newer product, Trulance, as the side effect profile is much strainer cleaner. With respect to the gastroparesis directly we discussed grazing which she has noticed over the years helps her overall symptomatic problems improve. She needs more fluid intake. Endoscopy today revealed no evidence of pyloric stenosis so no Botox injection was given. Given this condition likelihood of a peroral endoscopic myotomy is not likely to help. We had discussed previously and again today the option of considering gastric pacemaker. She is concerned about her heart rhythm disorder and the gastric pacemaker triggering a heart rhythm problem. I told her this would not likely be a problem but she is concerned. We talked again about a feeding jejunostomy tube to bypass the gastric motility disorder. She is strongly considering this. Assuming she can eat comfortably tomorrow she can be discharged from the GI standpoint. Once she makes a decision about a jejunostomy tube we can coordinate this. MD SUSAN Lau/JANIE /5:14 PM /1:08 PM
--- NOTE | 2017-03-04 13:36 | MB ---
cc: ANDER POLANCO M.D., DAVID G. M.D. MERCER, JASON R. M.D. DATE OF CONSULTATION 03/04/2017 REASON FOR CONSULTATION Discuss with patient gastrostomy tube, jejunostomy tube, gastrojejunostomy tube. BRIEF HISTORY This is a very pleasant 56-year-old woman who has multiple medical problems, mostly related to autoimmune disorders who has gastroparesis and has had it for many years. She has been seen at the [facility], at [facility] and at [facility] regarding her gastroparesis. She has had multiple evaluations and studies to evaluate it. She has been maintained on azithromycin for many years and has had some a progressive increased difficulty with nausea and inability to stay hydrated. She says over the period of an entire day she can only get one 16-ounce bottle of water in per day. She has to graze and eat small amounts of food throughout the day. She was recently admitted related to some dehydration and because of her dehydration she has increased risks associated with her Toombs's disease and her autonomic dysfunction. She has considered placement of feeding tubes to supplement her nutrition and hydration. ALLERGIES COMPAZINE. IV CONTRAST. SULFA. PENICILLIN. NONSTEROIDAL ANTI-INFLAMMATORIES. H2 BLOCKERS. ADENOSINE. AMOXICILLIN IODINE. PROMETHAZINE. REGLAN. MEDICAL PROBLEMS 1. Toombs's disease. 2. Gastroparesis. 3. Autonomic disorder with postural orthostatic tachycardia syndrome. 4. She has been positive for lupus anticoagulant and Sj gren's antibodies. 5. History of hypothyroidism related Neel's thyroiditis. 6. She has a history of anxiety, panic disorder and PTSD. 7. She has hyperlipidemia. 8. 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 9. She has osteoporosis. 10. Raynaud's phenomenon. 11. Beta thalassemia minor. 12. History of T7 compression fracture. 13. Kidney stone. 14. Right humerus fracture. 15. Left hip fracture with left hip replacement. 16. Partial hysterectomy. 17. C-sections in 1983, 1985 and 1995. 18. Iron deficiency anemia, but has "ALLERGY TO IV IRON". ROUTINE MEDICATIONS 1. Colace. 2. Zofran OTC although her [facility] insurance no longer wants to pay for her Zofran. 3. Azithromycin. 4. Nexium. 5. Synthroid. 6. Prednisone 1 mg two tablets, one 2 times per day and three tablets twice per day as well totaling 10 mg of prednisone per day. 7. Vitamin D. 8. Fluticasone nasal spray 9. Enteric-coated aspirin 81 mg. 10. Percocet. 11. Atenolol. 12. Estrace cream. 13. Betamethasone cream. 14. Potassium 10 mEq one twice per day. 15. Fludrocortisone 0.1 mg a day. 16. Lorazepam. 17. MiraLax. SOCIAL HISTORY She is disabled, . She has a significant other. She denies tobacco or alcohol abuse. FAMILY HISTORY Significant for dementia, hemorrhoids, hypertension, hyperlipidemia, stroke, kidney stones. She has siblings with anemia and hemorrhoids. REVIEW OF SYSTEMS Well elucidated in the HPI. PHYSICAL EXAMINATION GENERAL: A healthy-appearing, pleasant, cooperative woman in no acute distress. VITAL SIGNS: Her temperature is 98.6, pulse 60, respiratory rate 18, blood pressure 111/67, O2 sat 99% on room air. HEENT: She is normocephalic, atraumatic. Her pupils are 3, round and reactive to light. Her sclerae are anicteric. Oropharynx is clear without mucosal lesions. She has excellent dentition. There is no erythema in the oropharynx. NECK: Her neck is supple without adenopathy. She has a midline trachea. No jugular venous distension. No thyromegaly. No carotid bruits. LUNGS: Her lungs are clear and equal anteriorly bilaterally. Cardiology Her heart sounds are regular without obvious murmur, rub or gallop. BREAST, GENITAL AND RECTAL EXAMS: Deferred. ABDOMEN: Her abdomen is soft and nondistended. It appears normal. She has healed low transverse scars from her C-sections and partial hysterectomy. She has a small reducible umbilical hernia oriented superior on the right. It is reducible and nontender. She has normal bowel sounds and no abdominal bruits. EXTREMITIES: Her extremities show no cyanosis, clubbing or edema. She has had left hip surgery. She has equal radial pulses. She has equal dorsalis pedis pulses. NEUROLOGICALLY: She is awake, alert and oriented. She has equal strong bilateral research clerk strength and no gross motor or sensory deficit. LABORATORY DATA Labs show a white count of 9.4 with 70.9% neutrophils. Her hemoglobin is 8.6, her platelet count is 154. Her potassium is 3.9, creatinine 0.66, albumin is 3. Her prealbumin was 32. Urinalysis is essentially negative. IMAGING STUDIES Abdominal x-ray was benign-appearing. ASSESSMENT A 56-year-old woman with long history of autoimmune disorders, Toombs's disease, steroid dependent with gastroparesis. She has undergone extensive workup at tertiary care facilities, has been maintained on PPI, antinausea medications and a azithromycin. She appears to be absorbing protein fairly well. Her main concern at this time is staying hydrated. She is interested in options of gastrostomy tube, jejunostomy tube, gastrojejunostomy tubes. I talked to she and her significant other about surgical placement of these feeding tubes and what they may anticipate as far as the care in the ideal situation, minimal pain and minimal drainage around the tubes and effective supplementation of nutrition and hydration. In the less than ideal situation increased drainage around the tubes, erythema, irritation, potential for infection, potential for tubes being clogged, potential for intraabdominal complications. They understand the full gamut. In this patient I would be in favor of, if she is unable to maintain adequate nutrition and hydration, placement of a feeding jejunostomy. My experience with the gastrojejunostomy tubes is less than ideal with the jejunal portion often times flipping out of the jejunum and frequently requiring removal and/or replacement. The addition of a gastrostomy tube could be considered to assist in gastric distension and nausea, allowing her to vent the stomach. She additionally commented on the ability to take oral medications and place it through a tube. I believe this is contraindicated in a jejunostomy tube due to the decreased caliber of the tube that would put her at increased risk of occlusion or obstruction of the jejunostomy tube whereas a gastrostomy tube which is larger in caliber would be less likely to have a problem to accept crushed medications. In the ideal situation, if she elected to pursue placement of a G and/or J-tube, I would prefer that we do this on a same-day surgery admission basis to decrease her risk of infection. Given her overall diagnoses of multiple autonomic disorders and Toombs's disease and the gastroparesis, her surgical risks are increased over someone who did not have this complexity of multiple medical disorders. I did my best to explain these issues with the patient and her significant other. I believe they have an increased understanding of the options available to them. If she desirous follow up with me as an outpatient in the office for further discussion and to potentially schedule placement of a G and/or J-tube, I would be more than happy to see her. MD KIERRA Schwartz/SSB /11:35 AM /1:14 PM
[2017-03-04 16:00] VITALS: BP 92/59; PULSE 73; RESP 18; TEMP 97.7; O2SAT 97
[2017-03-04 20:05] VITALS: BP 104/64; PULSE 70; RESP 16; TEMP 96.2; O2SAT 99
[2017-03-05] VITALS: BP 105/69; PULSE 77; RESP 17; TEMP 96.5; O2SAT 97
[2017-03-05] MEDS: predniSONE 1 MG TAB PO SCH ×3 (00:11→15:16)
[2017-03-05] MEDS: NS + KCL 20 MEQ INJ 1,000 ML IV SCH ×3 (00:11→22:55)
[2017-03-05] MEDS: oxyCODONE/ACETAMINOPHEN 5 MG/325 MG TAB PO PRN ×4 (00:12→19:50)
[2017-03-05] MEDS: ATENOLOL 25 MG TAB PO SCH ×3 (00:12→15:16)
[2017-03-05] MEDS: LORazepam 0.5 MG TAB PO PRN ×4 (00:17→19:49)
[2017-03-05] MEDS: ONDANSETRON HCL 4 MG/2 ML VIAL IV PUSH PRN (04:38)
[2017-03-05] MEDS: LEVOTHYROXINE SODIUM 25 MCG TAB PO SCH (04:39)
[2017-03-05] MEDS: LEVOTHYROXINE SODIUM 112 MCG TAB PO SCH (04:39)
[2017-03-05 07:25] LABS: AUTOMATED NEUTROPHIL # 5.3 TH/MM3 (1.8-7.7); BASOPHIL # 0.1 TH/MM3 (0-0.2); BASOPHIL % 0.8 % (0.0-2.0); EOSINOPHIL # 0.1 TH/MM3 (0-0.4); EOSINOPHIL % 1.1 % (0.0-4.0); HEMATOCRIT 28.4 % (35.0-46.0); LYMPH % 24.5 % (9.0-44.0); LYMPHOCYTE # 1.9 TH/MM3 (1.0-4.8); MEAN CELL VOLUME 60.4 FL (80.0-100.0); MEAN CORPUSCULAR HEMOGLOBIN 17.9 PG (27.0-34.0); MONO % 6.6 % (0.0-8.0); PLATELET COUNT 148 TH/MM3 (150-450); RED BLOOD COUNT 4.71 MIL/MM3 (4.00-5.30); RED CELL DISTRIBUTION WIDTH 20.4 % (11.6-17.2); WHITE BLOOD COUNT 7.9 TH/MM3 (4.0-11.0)
[2017-03-05 07:42] LABS: POTASSIUM 3.9 MEQ/L (3.5-5.1)
[2017-03-05 08:00] VITALS: BP 96/54; PULSE 61; RESP 18; TEMP 97.5; O2SAT 96
[2017-03-05 08:17] LABS: HEMO FLAGS AUTO DIFF; MEAN CORPUSCULAR HGB CONC 29.7 % (32.0-36.0)
[2017-03-05 08:22] LABS: EOSINOPHILS 1 % (0-4); MYELOCYTES 1 % (0-0); NEUTROPHIL # MANUAL DIFF 5.2 TH/MM3 (1.8-7.7); PLATELET ESTIMATE SMEAR NORMAL (NORMAL); PLATELET MORPHOLOGY NORMAL (NORMAL); POLYS (SEG NEUTROPHILS) 65 % (16-70); SCAN/DIFF FINAL DIFF MANUAL; WBC DIFF SAMPLE 100
[2017-03-05 08:24] LABS: TEARDROP RBCS 1+ (NORMAL)
[2017-03-05 08:25] LABS: ACANTHOCYTES OCC (NORMAL); OVALOCYTES 1+ (NORMAL)
--- NOTE | 2017-03-05 09:06 | HHI.GIFU ---
GI Follow-up Note Consult Follow-up Subjective: Patient laying in bed comfortably, no new complaints. The neck discomfort is improving; she noticed dysphagia for a hamburger jackie last evening; we discussed the recommendation to avoid dense foods, again, because of her gastroparesis. Objective: PHYSICAL EXAMINATION: Vitals signs stable No fever HEENT: EOMI NECK: Neck is supple, much less tender. GANG RIDER: Alert and oriented times three. Available Data (labs, X- Rays, Procedues) : Labs stable ASSESSMENT/PLAN: Severe gastroparesis. Regurgitation is worse, post-esophageal dilation; there had been esophageal dysmotility, which has been treated to some degree with dilation; this will allow easier regurgitation. She spoke with a chemical engraver yesterday. She'll try medical marijuana and not use Zofran today to see how she does. I'll speak with Dr. Nichole about the J-tube decision. It was a pleasure seeing Jennifer Raines. Entered by: Aurelio Haines MD Mar 05, 2017 09:06
[2017-03-05] MEDS: FLUDROCORTISONE ACETATE 0.1 MG TAB PO SCH (09:37)
[2017-03-05] MEDS: POLYETHYLENE GLYCOL 17 GM PKG PO SCH ×2 (09:37→15:17)
[2017-03-05] MEDS: CHOLECALCIFEROL (VIT D3) 1000 UNIT TAB PO SCH (09:37)
[2017-03-05] MEDS: PANTOPRAZOLE SOD 40 MG DELAYED RELEASE TAB PO SCH (09:37)
[2017-03-05 12:00] VITALS: BP 98/64; PULSE 70; RESP 18; TEMP 97.6; O2SAT 99
[2017-03-05 16:00] VITALS: BP 115/74; PULSE 84; RESP 18; TEMP 98.4; O2SAT 98
--- NOTE | 2017-03-05 16:19 | HHI.PR ---
Subjective Remarks Neck pain improving. Had more reflux overnight. Still complains of nausea. + BM. Ambulated in halls. Current Medications Medications (Trade) Dose Ordered Sig/Anneliese Route Start Time Stop Time Status Last Admin (Zofran Inj) 4 mg Q6H PRN IV PUSH 02/25/17 20:45 03/05/17 04:38 (Vitamin D3) 1,000 units DAILY PO 02/26/17 09:00 03/05/17 09:37 (Florinef) 0.1 mg DAILY PO 02/26/17 09:00 03/05/17 09:37 (Synthroid) 56 mcg MoWeFr@0600 PO 02/26/17 06:00 03/05/17 04:39 (Ativan) 0.5 mg Q4H PRN PO 02/25/17 23:45 03/05/17 15:17 (Synthroid) 62.5 mcg SuTuThSa@0600 PO 02/27/17 06:00 03/02/17 04:31 (Protonix) 40 mg DAILY PO 02/26/17 09:00 03/05/17 09:37 (Pill Splitter) 1 ea UNSCH PRN OTHER 02/26/17 00:15 (Synthroid) 12.5 mcg MoWeFr@0600 PO 02/26/17 06:00 03/05/17 04:39 (Tenormin) 25 mg DAILY@0100,0800,1500 PO 02/26/17 15:00 03/05/17 15:16 (Deltasone) 3 mg DAILY@1500 PO 02/27/17 15:00 03/05/17 15:16 (Deltasone) 2 mg DAILY@0000 PO 02/27/17 00:00 03/05/17 00:11 (Deltasone) 6 mg DAILY PO 02/27/17 09:00 03/05/17 09:37 Potassium Chloride/Sodium Chloride 1,000 ml @ 84 mls/hr [id number] IV 02/27/17 12:00 03/05/17 12:33 (Miralax) 17 gm BID PO 03/02/17 21:00 03/05/17 15:17 Lactated Ringer's 1,000 ml @ 30 mls/hr Q24H PRN IV 03/03/17 22:45 03/06/17 22:44 Sodium Chloride 500 ml @ 30 mls/hr [id number] PRN IV 03/03/17 22:45 03/06/17 22:44 (Betadine 5% Antisepsis Kit) 1 applic BREWING DIRECTOR PRN EACH NARE 03/03/17 22:45 03/06/17 22:44 (Chlorhexidine 2% Cloth) 3 pack BREWING DIRECTOR PRN TOPICAL 03/03/17 22:45 03/06/17 22:44 (NovoLIN R INJ) See Protocol Table ... BREWING DIRECTOR PRN SQ 03/03/17 22:45 03/06/17 22:44 (Percocet 5-325 Mg) 1 tab Q4H PRN PO 03/03/17 21:30 03/05/17 15:16 (Chloraseptic [place]) 2 spray Q2H PRN PO 03/03/17 21:30 03/04/17 00:25 Objective Vital Signs Date Time Temp Pulse Resp B/P (MAP) Pulse Ox O2 Delivery O2 Flow Rate FiO2 03/05/17 12:00 97.6 70 18 98/64 (75) 99 03/05/17 08:00 97.5 61 18 96/54 (68) 96 03/05/17 00:00 96.5 77 17 105/69 (81) 97 03/04/17 20:54 18 03/04/17 20:05 96.2 70 16 104/64 (77) 99 I/O 03/04/17 03/04/17 03/04/17 03/05/17 03/05/17 03/05/17 07:00 15:00 23:00 07:00 15:00 23:00 Intake Total 1210 ml 600 ml 1345 ml 1080 ml Balance 1210 ml 600 ml 1345 ml 1080 ml Intake Oral 240 ml 600 ml 720 ml 480 ml IV Total 970 ml 625 ml 600 ml # Voids 3 3 2 2 # Bowel Movements 0 Result Diagram: 03/05/1764703/05/17 0648 Assessment and Plan Problem List: (1) Nausea ICD Codes: R11.0 - Nausea Status: Acute Plan: Patient with esophageal motility disorder. S/P Dilation. Dysphagia symptoms improved but has more reflux symptoms. Further treatment per GI. Patient considering J tube for alternative means of nutrition and more importantly hydration. (2) Gastroparesis ICD Codes: K31.84 - Gastroparesis Status: Chronic Plan: Persistent nausea. Further treatment per Dr Shearer (3) Iron deficiency anemia ICD Codes: D50.9 - Iron deficiency anemia, unspecified Status: Chronic Plan: Patient refused iron infusion. H&H decreasing. May require transfusion to bring Hgb > 10. Anemia can complicate comorbidities including POTS and Gramercy's Disease (4) Hypothyroidism ICD Codes: E03.9 - Hypothyroidism, unspecified Status: Chronic Plan: Continue with current regimen of Synthroid. Patient has frequent thyroid labs as outpatient. No need to recheck at this time (5) Dysautonomia ICD Codes: G90.9 - Disorder of the autonomic nervous system, unspecified Status: Chronic Plan: She has Postural Orthostatic Tachycardia Syndrome. Cont Atenolol and Florinef (6) Addisons disease ICD Codes: E27.1 - Primary adrenocortical insufficiency Status: Chronic Plan: Wean Steroids back to physiologic dosing (7) Anxiety ICD Codes: F41.9 - Anxiety disorder, unspecified Status: Chronic Plan: Cont Lorazepam as needed (8) Left hip pain ICD Codes: M25.552 - Pain in left hip Status: Chronic Plan: Oxycodone prn Assessment and Plan Patient's significant other present during entire visit. Problem Qualifiers (1) Iron deficiency anemia: Qualified Codes: D50.8 - Other iron deficiency anemias (2) Hypothyroidism: Qualified Codes: E03.9 - Hypothyroidism, unspecified Andres Duron MD Mar 05, 2017 16:19
[2017-03-05 20:00] VITALS: BP 97/54; PULSE 71; RESP 16; TEMP 97.7; O2SAT 95
[2017-03-06] MEDS: predniSONE 1 MG TAB PO SCH ×3 (00:31→15:13)
[2017-03-06] MEDS: oxyCODONE/ACETAMINOPHEN 5 MG/325 MG TAB PO PRN ×4 (00:32→20:24)
[2017-03-06] MEDS: ATENOLOL 25 MG TAB PO SCH ×3 (00:32→15:13)
[2017-03-06] MEDS: LORazepam 0.5 MG TAB PO PRN ×4 (00:32→20:23)
[2017-03-06] MEDS: LEVOTHYROXINE SODIUM 125 MCG TAB PO SCH (04:59)
--- NOTE | 2017-03-06 07:29 | HHI.GIFU ---
GI Follow-up Note Consult Follow-up Subjective: Patient laying in bed comfortably, no new complaints. She had a very good day yesterday; she took no zofran and used medical marijuana only once at 21:00. She adhered to the liquid/gastroparesis diet and ate nothing dense.. Objective: PHYSICAL EXAMINATION: Vitals signs stable No fever HEENT:EOMI NECK: Neck is much less tender; her swallowing is more comfortable. PACKAGE DYE STAND LOADER: alert and oriented times three. Available Data (labs, X- Rays, Procedues) : AM labs pending. ASSESSMENT/PLAN:Nausea/gastroparesis; better yesterday. She's willing to go home today after her blood transfusion. We discussed Boost and clear liquid Ensure as nutritional options. We discussed the J-tube again. She'll follow up with Dr. Nichole if/when she thinks the tube may be necessary. An oral liquid iron supplement should be considered. She may follow up with me as needed. It was a pleasure seeing Jennifer Raines. Entered by: Aurelio Haines MD Mar 06, 2017 07:29
[2017-03-06 08:00] VITALS: BP 96/52; PULSE 71; RESP 18; TEMP 96.9; O2SAT 97
[2017-03-06] MEDS: FLUDROCORTISONE ACETATE 0.1 MG TAB PO SCH (08:55)
[2017-03-06] MEDS: PANTOPRAZOLE SOD 40 MG DELAYED RELEASE TAB PO SCH (08:55)
[2017-03-06] MEDS: CHOLECALCIFEROL (VIT D3) 1000 UNIT TAB PO SCH (08:55)
[2017-03-06] MEDS: POLYETHYLENE GLYCOL 17 GM PKG PO SCH ×2 (08:56→20:23)
[2017-03-06 10:24] LABS: AUTOMATED NEUTROPHIL # 4.6 TH/MM3 (1.8-7.7); BASOPHIL # 0.1 TH/MM3 (0-0.2); BASOPHIL % 0.7 % (0.0-2.0); EOSINOPHIL # 0.1 TH/MM3 (0-0.4); EOSINOPHIL % 1.4 % (0.0-4.0); HEMATOCRIT 29.3 % (35.0-46.0); LYMPH % 27.5 % (9.0-44.0); MEAN CELL VOLUME 60.8 FL (80.0-100.0); MONO % 6.3 % (0.0-8.0); NEUT % 64.1 % (16.0-70.0); PLATELET COUNT 172 TH/MM3 (150-450); RED BLOOD COUNT 4.82 MIL/MM3 (4.00-5.30); RED CELL DISTRIBUTION WIDTH 20.7 % (11.6-17.2); WHITE BLOOD COUNT 7.1 TH/MM3 (4.0-11.0)
[2017-03-06 10:34] LABS: HEMO FLAGS AUTO DIFF; MEAN CORPUSCULAR HGB CONC 29.6 % (32.0-36.0)
[2017-03-06 10:40] LABS: BICARBONATE 29.9 MEQ/L (21.0-32.0); POTASSIUM 3.8 MEQ/L (3.5-5.1)
[2017-03-06] MEDS: NS + KCL 20 MEQ INJ 1,000 ML IV SCH ×2 (10:50→15:17)
[2017-03-06 11:08] LABS: OVALOCYTES 1+ (NORMAL); SCAN/DIFF AUTO DIFF CONFIRMED; TEARDROP RBCS 1+ (NORMAL)
--- NOTE | 2017-03-06 12:00 | HHI.PR ---
Subjective Remarks Had less nausea yesterday. PO intake still marginal. Neck pain improved. +BM Current Medications Medications (Trade) Dose Ordered Sig/Anneliese Route Start Time Stop Time Status Last Admin (Zofran Inj) 4 mg Q6H PRN IV PUSH 02/25/17 20:45 03/05/17 04:38 (Vitamin D3) 1,000 units DAILY PO 02/26/17 09:00 03/06/17 08:55 (Florinef) 0.1 mg DAILY PO 02/26/17 09:00 03/06/17 08:55 (Synthroid) 56 mcg MoWeFr@0600 PO 02/26/17 06:00 03/05/17 04:39 (Ativan) 0.5 mg Q4H PRN PO 02/25/17 23:45 03/06/17 04:59 (Synthroid) 62.5 mcg SuTuThSa@0600 PO 02/27/17 06:00 03/06/17 04:59 (Protonix) 40 mg DAILY PO 02/26/17 09:00 03/06/17 08:55 (Pill Splitter) 1 ea UNSCH PRN OTHER 02/26/17 00:15 (Synthroid) 12.5 mcg MoWeFr@0600 PO 02/26/17 06:00 03/05/17 04:39 (Tenormin) 25 mg DAILY@0100,0800,1500 PO 02/26/17 15:00 03/06/17 08:59 (Deltasone) 3 mg DAILY@1500 PO 02/27/17 15:00 03/05/17 15:16 (Deltasone) 2 mg DAILY@0000 PO 02/27/17 00:00 03/06/17 00:31 (Deltasone) 6 mg DAILY PO 02/27/17 09:00 03/06/17 08:56 Potassium Chloride/Sodium Chloride 1,000 ml @ 84 mls/hr [id number] IV 02/27/17 12:00 03/05/17 12:33 (Miralax) 17 gm BID PO 03/02/17 21:00 03/06/17 08:56 Lactated Ringer's 1,000 ml @ 30 mls/hr Q24H PRN IV 03/03/17 22:45 03/06/17 22:44 Sodium Chloride 500 ml @ 30 mls/hr [id number] PRN IV 03/03/17 22:45 03/06/17 22:44 (Betadine 5% Antisepsis Kit) 1 applic FAILURE ANALYSIS TECHNICIAN PRN EACH NARE 03/03/17 22:45 03/06/17 22:44 (Chlorhexidine 2% Cloth) 3 pack FAILURE ANALYSIS TECHNICIAN PRN TOPICAL 03/03/17 22:45 03/06/17 22:44 (NovoLIN R INJ) See Protocol Table ... FAILURE ANALYSIS TECHNICIAN PRN SQ 03/03/17 22:45 03/06/17 22:44 (Percocet 5-325 Mg) 1 tab Q4H PRN PO 03/03/17 21:30 03/06/17 05:00 (Chloraseptic [place]) 2 spray Q2H PRN PO 03/03/17 21:30 03/04/17 00:25 Objective Vital Signs Date Time Temp Pulse Resp B/P (MAP) Pulse Ox O2 Delivery O2 Flow Rate FiO2 03/06/17 08:00 96.9 71 18 96/52 (67) 97 03/05/17 20:00 97.7 71 16 97/54 (68) 95 03/05/17 16:00 98.4 84 18 115/74 (88) 98 03/05/17 12:00 97.6 70 18 98/64 (75) 99 I/O 03/05/17 03/05/17 03/05/17 03/06/17 03/06/17 03/06/17 07:00 15:00 23:00 07:00 15:00 23:00 Intake Total 1080 ml 1320 ml 480 ml Balance 1080 ml 1320 ml 480 ml Intake Oral 480 ml 1320 ml 480 ml IV Total 600 ml # Voids 2 5 1 # Bowel Movements 0 Result Diagram: 03/06/1744 03/06/1744 Assessment and Plan Problem List: (1) Nausea ICD Codes: R11.0 - Nausea Status: Acute Plan: Patient with esophageal motility disorder. S/P Dilation. Dysphagia symptoms improved. Less refllux overnight. Using medical marijuana for nausea. Patient considering J tube for alternative means of nutrition and more importantly hydration. (2) Gastroparesis ICD Codes: K31.84 - Gastroparesis Status: Chronic Plan: Persistent nausea. Further treatment per Dr Shearer (3) Iron deficiency anemia ICD Codes: D50.9 - Iron deficiency anemia, unspecified Status: Chronic Plan: Patient with persistent anemia and complains of JO. With complicated medical huistory would benefit from Hgb > 10. Transfuse 2 units of PRBC (4) Hypothyroidism ICD Codes: E03.9 - Hypothyroidism, unspecified Status: Chronic Plan: Continue with current regimen of Synthroid. Patient has frequent thyroid labs as outpatient. No need to recheck at this time (5) Dysautonomia ICD Codes: G90.9 - Disorder of the autonomic nervous system, unspecified Status: Chronic Plan: She has Postural Orthostatic Tachycardia Syndrome. Cont Atenolol and Florinef (6) Addisons disease ICD Codes: E27.1 - Primary adrenocortical insufficiency Status: Chronic Plan: Wean Steroids back to physiologic dosing (7) Anxiety ICD Codes: F41.9 - Anxiety disorder, unspecified Status: Chronic Plan: Cont Lorazepam as needed (8) Left hip pain ICD Codes: M25.552 - Pain in left hip Status: Chronic Plan: Oxycodone prn Assessment and Plan Patient's significant other present during entire visit. Discharge Planning Plan discharge later today after transfusion or in am. Problem Qualifiers (1) Iron deficiency anemia: Qualified Codes: D50.8 - Other iron deficiency anemias (2) Hypothyroidism: Qualified Codes: E03.9 - Hypothyroidism, unspecified Andres Duron MD Mar 06, 2017 12:00
[2017-03-06 12:04] VITALS: BP 108/57; PULSE 70; RESP 16; TEMP 97.6; O2SAT 98
[2017-03-06] MEDS ORDERED: ACETAMINOPHEN 325 MG TAB PO PRN (13:30)
[2017-03-06 15:15] VITALS: BP 100/67; PULSE 75; RESP 16; TEMP 95.4; O2SAT 99
[2017-03-06 19:00] VITALS: BP 101/55; PULSE 64; RESP 16; TEMP 95.6; O2SAT 98
[2017-03-06 21:22] VITALS: BP 101/55; PULSE 64; RESP 16; TEMP 96.7; O2SAT 98
[2017-03-06 21:41] VITALS: BP 116/64; PULSE 69; RESP 17; TEMP 97.5; O2SAT 99
[2017-03-07] VITALS (9 sets, daily range): BP systolic 103–129; BP diastolic 58–69; PULSE 57–67; RESP 16–19; TEMP 96.2–98.4; O2SAT 96–99
[2017-03-07] MEDS: LORazepam 0.5 MG TAB PO PRN ×3 (00:14→15:41)
[2017-03-07] MEDS: predniSONE 1 MG TAB PO SCH ×3 (00:14→15:41)
[2017-03-07] MEDS: ATENOLOL 25 MG TAB PO SCH ×3 (00:14→15:41)
[2017-03-07] MEDS: oxyCODONE/ACETAMINOPHEN 5 MG/325 MG TAB PO PRN ×3 (00:15→15:41)
[2017-03-07] MEDS: ONDANSETRON HCL 4 MG/2 ML VIAL IV PUSH PRN (01:58)
[2017-03-07] MEDS: LEVOTHYROXINE SODIUM 125 MCG TAB PO SCH (04:16)
[2017-03-07 07:14] LABS: BICARBONATE 28.9 MEQ/L (21.0-32.0); POTASSIUM 3.9 MEQ/L (3.5-5.1)
[2017-03-07 07:20] LABS: AUTOMATED NEUTROPHIL # 4.9 TH/MM3 (1.8-7.7); BASOPHIL % 0.6 % (0.0-2.0); EOSINOPHIL # 0.1 TH/MM3 (0-0.4); EOSINOPHIL % 1.3 % (0.0-4.0); HEMATOCRIT 38.6 % (35.0-46.0); LYMPH % 27.2 % (9.0-44.0); LYMPHOCYTE # 2.1 TH/MM3 (1.0-4.8); MEAN CELL VOLUME 66.7 FL (80.0-100.0); MEAN CORPUSCULAR HEMOGLOBIN 20.5 PG (27.0-34.0); MEAN CORPUSCULAR HGB CONC 30.8 % (32.0-36.0); NEUT % 63.9 % (16.0-70.0); PLATELET COUNT 146 TH/MM3 (150-450); RED CELL DISTRIBUTION WIDTH 26.1 % (11.6-17.2); WHITE BLOOD COUNT 7.7 TH/MM3 (4.0-11.0)
[2017-03-07 08:18] LABS: HEMO FLAGS AUTO DIFF
[2017-03-07] MEDS: FLUDROCORTISONE ACETATE 0.1 MG TAB PO SCH (08:49)
[2017-03-07] MEDS: CHOLECALCIFEROL (VIT D3) 1000 UNIT TAB PO SCH (08:49)
[2017-03-07] MEDS: PANTOPRAZOLE SOD 40 MG DELAYED RELEASE TAB PO SCH (08:50)
[2017-03-07] MEDS: POLYETHYLENE GLYCOL 17 GM PKG PO SCH (08:50)
[2017-03-07] MEDS: NS + KCL 20 MEQ INJ 1,000 ML IV SCH ×2 (08:55→15:46)
[2017-03-07 09:04] LABS: OVALOCYTES 1+ (NORMAL); PLATELET ESTIMATE SMEAR NORMAL (NORMAL); PLATELET MORPHOLOGY ENLARGED (NORMAL)
[2017-03-07 09:05] LABS: SCAN/DIFF AUTO DIFF CONFIRMED
[2017-03-07] MEDS ORDERED: ACETAMINOPHEN 325 MG TAB PO PRN (16:15)
--- NOTE | 2017-03-07 16:21 | HHI.PR ---
Subjective Remarks Received 2 units PRBC overnight. Complains of mild headache. Requesting Tylenol. Small BM this am. Complains of abdominal distention greater than yesterday. Has had daily soft BM's. She is concerned about impaction. Still nausea but less. PO intake fair. Current Medications Medications (Trade) Dose Ordered Sig/Anneliese Route Start Time Stop Time Status Last Admin (Zofran Inj) 4 mg Q6H PRN IV PUSH 02/25/17 20:45 03/07/17 01:58 (Vitamin D3) 1,000 units DAILY PO 02/26/17 09:00 03/07/17 08:49 (Florinef) 0.1 mg DAILY PO 02/26/17 09:00 03/07/17 08:49 (Synthroid) 56 mcg MoWeFr@0600 PO 02/26/17 06:00 03/05/17 04:39 (Ativan) 0.5 mg Q4H PRN PO 02/25/17 23:45 03/07/17 15:41 (Synthroid) 62.5 mcg SuTuThSa@0600 PO 02/27/17 06:00 03/07/17 04:16 (Protonix) 40 mg DAILY PO 02/26/17 09:00 03/07/17 08:50 (Pill Splitter) 1 ea UNSCH PRN OTHER 02/26/17 00:15 (Synthroid) 12.5 mcg MoWeFr@0600 PO 02/26/17 06:00 03/05/17 04:39 (Tenormin) 25 mg DAILY@0100,0800,1500 PO 02/26/17 15:00 03/07/17 15:41 (Deltasone) 3 mg DAILY@1500 PO 02/27/17 15:00 03/07/17 15:41 (Deltasone) 2 mg DAILY@0000 PO 02/27/17 00:00 03/07/17 00:14 (Deltasone) 6 mg DAILY PO 02/27/17 09:00 03/07/17 08:50 Potassium Chloride/Sodium Chloride 1,000 ml @ 84 mls/hr [id number] IV 02/27/17 12:00 03/07/17 15:46 (Miralax) 17 gm BID PO 03/02/17 21:00 03/07/17 08:50 (Percocet 5-325 Mg) 1 tab Q4H PRN PO 03/03/17 21:30 03/07/17 15:41 (Chloraseptic [place]) 2 spray Q2H PRN PO 03/03/17 21:30 03/04/17 00:25 Objective Vital Signs Date Time Temp Pulse Resp B/P (MAP) Pulse Ox O2 Delivery O2 Flow Rate FiO2 03/07/17 15:43 96.3 64 16 119/66 (83) 99 03/07/17 12:00 98.4 66 18 129/69 (89) 97 03/07/17 08:00 97.7 64 19 117/63 (81) 96 03/07/17 04:00 97.4 57 16 105/59 (74) 98 03/07/17 03:45 97.4 57 16 103/59 98 03/07/17 00:55 96.5 67 16 111/58 99 03/07/17 00:35 96.2 60 16 106/59 99 03/07/17 00:21 96.2 60 16 106/59 99 03/07/17 00:01 96.2 60 16 106/59 (75) 99 03/06/17 21:41 97.5 69 17 116/64 99 03/06/17 21:41 97.5 69 17 116/64 99 03/06/17 21:22 96.7 64 16 101/55 98 03/06/17 19:00 95.6 64 16 101/55 (70) 98 I/O 03/06/17 03/06/17 03/06/17 03/07/17 03/07/17 03/07/17 07:00 15:00 23:00 07:00 15:00 23:00 Intake Total 480 ml 2200 ml 1100 ml Balance 480 ml 2200 ml 1100 ml Intake Oral 480 ml 1080 ml IV Total 1120 ml 100 ml Packed Cells 1000 ml # Voids 1 4 1 # Bowel Movements 1 1 CV: RRR Lungs: CTa Abd; soft, mod distention, NT, active BS, no masses Result Diagram: 03/07/1753203/07/17532 Assessment and Plan Problem List: (1) Nausea ICD Codes: R11.0 - Nausea Status: Acute Plan: Patient with esophageal motility disorder. S/P Dilation. Dysphagia symptoms improved. Using medical marijuana for nausea. Patient considering J tube for alternative means of nutrition and more importantly hydration. Decision will be made as outpatient (2) Gastroparesis ICD Codes: K31.84 - Gastroparesis Status: Chronic Plan: Persistent nausea. Further treatment per Dr Shearer (3) Iron deficiency anemia ICD Codes: D50.9 - Iron deficiency anemia, unspecified Status: Chronic Plan: S/P Transfusion 2 units PRBC. Will need repeat H&H in 2-3 days to determine true reading after redistribution. Will recheck iron and ferritin in 30 days (4) Hypothyroidism ICD Codes: E03.9 - Hypothyroidism, unspecified Status: Chronic Plan: Continue with current regimen of Synthroid. Patient has frequent thyroid labs as outpatient. No need to recheck at this time (5) Dysautonomia ICD Codes: G90.9 - Disorder of the autonomic nervous system, unspecified Status: Chronic Plan: She has Postural Orthostatic Tachycardia Syndrome. Cont Atenolol and Florinef (6) Addisons disease ICD Codes: E27.1 - Primary adrenocortical insufficiency Status: Chronic Plan: Wean Steroids back to physiologic dosing (7) Anxiety ICD Codes: F41.9 - Anxiety disorder, unspecified Status: Chronic Plan: Cont Lorazepam as needed (8) Left hip pain ICD Codes: M25.552 - Pain in left hip Status: Chronic Plan: Oxycodone prn (9) Abdominal distention ICD Codes: R14.0 - Abdominal distension (gaseous) Status: Acute Plan: Distnetion greater than yesterday. Will check Abd Xray. No evidence obstruction or ileus. Encouraged patient to ambulate. Assessment and Plan Patient's significant other present during entire visit. Discharge Planning If no impaction on Xray can discharge home later today. Problem Qualifiers (1) Iron deficiency anemia: Qualified Codes: D50.8 - Other iron deficiency anemias (2) Hypothyroidism: Qualified Codes: E03.9 - Hypothyroidism, unspecified Andres Duron MD Mar 07, 2017 16:21
--- NOTE | 2017-03-07 16:46 | RADRPT ---
EXAM DATE/TIME: 03/07/2017 16:17 [facility] COMPARISON: ABDOMEN FLAT & UPRIGHT, February 25, 2017, 19:17. INDICATIONS : Nausea, evaluate for obstruction. MEDICAL HISTORY : Gastroparesis. SURGICAL HISTORY : None. ENCOUNTER: Subsequent ACUITY: 1 week PAIN SCORE: 3/10 LOCATION: Bilateral Abdomen FINDINGS: Supine and upright views of the abdomen were performed. There multiple loops of nondilated air-contai lary small bowel in the midabdomen with gas and stool noted segments within the colon. There are calc ified phleboliths in the pelvis. No air fluid levels are seen. No abnormal masses, calcifications, o r organomegaly is seen. The visualized lower lungs are clear. No evidence of free intraperitoneal g as. The osseous structures are stable in appearance. The patient is status post left hip arthroplast y. CONCLUSION: 1. Nonspecific, nonobstructed bowel gas pattern which may represent a mild ileus and/or gastroenterit is. 2. Status post left hip arthroplasty. Surjit Cutler MD on March 07, 2017 at 16:43 Board Certified Radiologist. This report was verified electronically.
[2017-03-07] MEDS ORDERED: POLY17S PO (18:32)
[2017-03-07] MEDS ORDERED: PERC10TA27 PO (18:32)
--- NOTE | 2017-04-15 09:14 | HHI.DS ---
Discharge Summary Admission Date Feb 27, 2017 at 14:08 Discharge Date: Mar 07, 2017 Admitting Diagnosis nausea, dehydration, generalized weakness, gastroparesis (1) Gastroparesis Diagnosis: Principal ICD Codes: K31.84 - Gastroparesis Status: Chronic (2) Iron deficiency anemia Diagnosis: Secondary ICD Codes: D50.9 - Iron deficiency anemia, unspecified Status: Chronic (3) Hypothyroidism Diagnosis: Secondary ICD Codes: E03.9 - Hypothyroidism, unspecified Status: Chronic (4) Addisons disease Diagnosis: Secondary ICD Codes: E27.1 - Primary adrenocortical insufficiency Status: Chronic (5) Left hip pain Diagnosis: Secondary ICD Codes: M25.552 - Pain in left hip Status: Chronic (6) Hypokalemia Diagnosis: Secondary ICD Codes: E87.6 - Hypokalemia Status: Acute (7) POTS (postural orthostatic tachycardia syndrome) Diagnosis: Secondary ICD Codes: R00.0 - Tachycardia, unspecified; I95.1 - Orthostatic hypotension Status: Chronic Procedures 03/03/2017-esophagogastroduodenoscopy with dilation of the esophagus-Dr. Shearer Brief History This 57-year-old white female with a complex medical history including gastroparesis, [place]'s disease, postural orthostatic tachycardia syndrome and hypothyroidism was experiencing increasing nausea and decreasing ability to take in oral solids and liquids. The patient was becoming progressively weaker. She saw her pain management nurse practitioner, Dr. Shearer who suggested some dietary changes, however, the patient continued to have worsening symptoms. She was clinically mildly dehydrated. She had contacted the undersigned physician and Dr. Shearer and it was felt that with her complex medical history and worsening nausea, she would benefit from an inpatient evaluation. Hospital Course the patient was admitted to a medical surgical bed with telemetry. She was started on IV fluids. Clinical evaluation revealed some mild dehydration. The patient reported persistent nausea and a feeling of food not wanting to pass through her esophagus. Gastroenterology was consult. The patient's normal pain management nurse practitioner, Dr. Shearer, was not credit union manager and his partner saw the patient. Initially there was discussion of an EGD. Ultimately, it was decided that Dr. Shearer would perform the procedure when he came credit union manager early on the following week. The patient continued to have nausea for which she took Zofran and used medical marijuana. Her oral intake was fair to poor. She still required IV fluid supplementation. The patient did undergo an EGD on March 03, 2017 which revealed normal- appearing esophagus, however, dilation was performed with resistance met suggestive of an esophageal motility disorder. There was a small amount of bilious fluid present in the dependent portion of the stomach and 2 fundic gland polyps were noted. The patient had been receiving azithromycin for an extended period of time for the gastroparesis. It did not seem to be efficacious anymore. The patient had not taken any drug holidays. It was suggested the patient hold the azithromycin. She had no change in her symptoms with the holding of the medication. Discussion was held with the patient and Dr. Shearer with regard to the possibility of patient receiving a jejunostomy tube for a means of alternative nutrition. Dr. Nichole was consulted and saw the patient for evaluation of a possible surgical jejunostomy tube. He felt that the patient's nutritional status was not poor enough to warrant it at this time but he would be willing to see the patient in followup after hospitalization. During the hospital [facility] the patient was found to have anemia. She has chronic iron deficiency anemia due to poor iron intake. She is unable to tolerate many foods that are high in iron and she has been unable to tolerate oral iron supplements. She had received some IV iron supplementation in the past but had a reaction. Dr. Tran was consulted for hematology for evaluation for iron supplementation. He recommended the patient receive IV iron supplement with premedication to prevent any allergic reactions. Initially the patient agreed but then she declined the iron infusions. The patient's hemoglobin reached a arjun of 8.1. With her complex medical history, it was felt that she would benefit from a hemoglobin >10.0. Therefore , she underwent a transfusion of 2 units of packed red blood cells. At discharge her hemoglobin was 11.9. The patient's nausea slowly improved but remained present. It was felt that the best option would be for the patient to see how she did with her nutritional status at home. If she could not control her nausea with Zofran and medical marijuana and her fluid status/nutritional status continued to decline and then she would benefit from a jejunostomy tube which was placed on an outpatient basis. The patient and her significant other agreed to this. On the day discharge patient was ambulating in the room. She was eating small amounts of food and taking small amounts of oral liquids. She had been off IV fluids for over 24 hours. It was felt she had obtained maximum benefit from hospitalization. She was discharged home in good condition with a gastroparesis diet. Activity was as tolerated. She will followup with Dr. Shearer in one to 2 weeks with plans to repeat a gastric emptying study after the patient had been off the azithromycin for 2 weeks. This would be done with and without azithromycin. She would followup with the undersigned physician in one to 2 weeks. She would have laboratory studies on outpatient basis in one week. Discharge medications were listed on the medication reconciliation sheet Pt Condition on Discharge: Good Discharge Disposition: Discharge Home Discharge Instructions DIET: Follow Instructions for: Heart Healthy Diet Activities you can perform: Regular-No Restrictions Andres Duron MD Apr 15, 2017 09:14
== END 2017-03-07 19:30 | disposition home or self-care (01) | DRG 392 ==
LOC: N06B 17:52 → OBSVTOIN 02-27 14:08 → N06A 02-27 21:36
PROVIDERS: ADMIT Family Medicine; ATTEND Family Medicine
PROC: 0D758ZZ Dilation of Esophagus, Via Natural or Artificial Opening Endoscopic (ICD-10-PCS; principal; 2017-03-03 12:56)
PROC: 30233N1 Transfusion of Nonautologous Red Blood Cells into Peripheral Vein, Percutaneous Approach (ICD-10-PCS; 2017-03-06)
DX: K31.84 Gastroparesis (principal); E27.1 Primary adrenocortical insufficiency; E86.0 Dehydration; D50.8 Other iron deficiency anemias; G90.1 Familial dysautonomia [Riley-Day]; F43.10 Post-traumatic stress disorder, unspecified; F41.9 Anxiety disorder, unspecified; K22.4 Dyskinesia of esophagus; E78.5 Hyperlipidemia, unspecified; M81.0 Age-related osteoporosis without current pathological fracture; I73.00 Raynaud's syndrome without gangrene; D56.3 Thalassemia minor; Z96.642 Presence of left artificial hip joint; M25.552 Pain in left hip; G89.29 Other chronic pain; M54.9 Dorsalgia, unspecified; Z79.891 Long term (current) use of opiate analgesic; Z79.52 Long term (current) use of systemic steroids; Z79.82 Long term (current) use of aspirin; K59.09 Other constipation; Z87.11 Personal history of peptic ulcer disease; M35.00 Sjogren syndrome, unspecified; K31.7 Polyp of stomach and duodenum; E03.8 Other specified hypothyroidism; M54.2 Cervicalgia
CPT/HCPCS: 36430; 74020; 76937; 80048; 80053; 81001; 82728; 83540; 83550; 84134; 85007; 85025; 85027; 86850; 86900; 86901; 86920; 93005; C1769; J0456; J1720; J2250; J2405; J3480; J7030; J7050; J7512; P9016

== ENCOUNTER 2017-06-04 09:51 | Emergency (ER) | payer MEDICARE ==
[~2017-06-04] VITALS: Ht 158.8 cm; Wt 51.6 kg
[~2017-06-04 09:51] MED LIST changes: -AZIT200S2 PO; +FLUD.1 PO; +POLY17S PO; +VITA1000 PO
[2017-06-04 10:07] VITALS: PULSE 72; RESP 16; TEMP 98.2; O2SAT 97
[2017-06-04 10:40] VITALS: BP 111/72
--- NOTE | 2017-06-04 11:43 | RADRPT ---
EXAM DATE/TIME: 06/04/2017 11:14 [facility] COMPARISON: No previous studies available for comparison. INDICATIONS : Right sided rib pain post fall ,5 days ago. MEDICAL HISTORY : Gastroparesis. SURGICAL HISTORY : None. ENCOUNTER: Initial ACUITY: 4 - 6 days PAIN SCORE: 8/10 LOCATION: Right posterior FINDINGS: Multiple views of the right ribs were performed. There is no evidence of displaced fracture. No steffen tructive lesions or areas of periosteal thickening are seen. Expiratory view of the chest is negativ e for pneumothorax. The mediastinal structures are midline. The heart remains mildly enlarged. A sco liotic curvature of the thoracic spine. CONCLUSION: No right rib fractures observed. Anthony Martel Jr., MD on June 04, 2017 at 11:38 Board Certified Radiologist. This report was verified electronically.
--- NOTE | 2017-06-04 12:13 | PD ---
HPI Chief Complaint: Musculoskeletal Complaint Time Seen by Provider: 11:04 Travel History International Travel<30 days: No Contact w/Intl Traveler<30days: No Traveled to known affect area: No History of Present Illness HPI This is a 57-year-old female with right anterior lateral rib pain after minor blunt trauma to the area 5 days ago. She ran into her shoulder. She has had pain at the site since. She has pain with deep inspiration. She denies shortness of breath. Symptoms severity is moderate. No alleviating factors. She denies chest pain, shortness of breath. 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, MIX CONNECTIVE AUTOIMMINE) Blood Disorders: No Anxiety: Yes Depression: No Heart Rhythm Problems: Yes (PALPITATIONS, TACHYCARDIA, PVC'S, PAC'S) Cancer: No Cardiac Catheterization: Yes (RT HEART CATH, PULM ANGIOGRAM,TILT TABLE TEST) Cardiovascular Problems: No (POTS) High Cholesterol: Yes Chemotherapy: No Chest Pain: No Congestive Heart Failure: No COPD: No Cerebrovascular Accident: No Diabetes: No Diminished Hearing: No Endocrine: Yes (ADDISONS) Gastrointestinal Disorders: Yes (GASTROPARESIS) GERD: Yes Glaucoma: No Genitourinary: Yes Headaches: No Hepatitis: No Hiatal Hernia: No Heparin Induced Thrombocytopen: No Hypertension: No Immune Disorder: Yes (LUPUS) Implanted Vascular Access Dvce: Yes Kidney Stones: No Musculoskeletal: No Neurologic: Yes Psychiatric: Yes (ANXIETY, PTSD) Reproductive: No Respiratory: No Immunizations Current: No Migraines: No Myocardial Infarction: No Radiation Therapy: No Renal Failure: No Seizures: No Sickle Cell Disease: No Sleep Apnea: No Thyroid Disease: Yes (HASHIMOTOS THYROIDITIS,ADDISONS DISEASE) Ulcer: Yes PNEUMOCCOCAL Vaccine (Year): 2 ?: Not Menopausal: Yes : 3 Para: 3 Miscarriage: 0 : 0 Past Surgical History Abdominal Surgery: Yes ( TIMES 3) AICD: No Appendectomy: No Arteriovenous Shunt: No Body Medical Devices: partial left hip 2011 (Dr. Hobbs) Cardiac Surgery: No Section: Yes (X 3) Cholecystectomy: No Coronary Artery Bypass Graft: No Ear Surgery: No Endocrine Surgery: No Eye Surgery: No Genitourinary Surgery: No Gynecologic Surgery: Yes (PARTIAL HYSTERECTOMY) Hysterectomy: Yes Insulin Pump: No Joint Replacement: Yes (LEFT HIP) Neurologic Surgery: No Oral Surgery: Yes (TONSILLECTOMY) Pacemaker: No Thoracic Surgery: No Tonsillectomy: Yes Other Surgery: Yes Family History Family Myocardial Infarction: Yes Social History Alcohol Use: No Tobacco Use: No Substance Use: No Allergies-Medications (Allergen,Severity, Reaction): Coded Allergies: Histamine H2 Inhibitors (Unverified Allergy, Severe, "PALPITATIONS", ) Sulfa (Sulfonamide Antibiotics) (Unverified Allergy, Severe, anaphylactic shock, 06/04/17) amoxicillin (Unverified Allergy, Severe, hives, 06/04/17) citalopram (Unverified Allergy, Severe, VOMITING, 06/04/17) clotrimazole (Unverified Allergy, Severe, "HIVES", 06/04/17) doxycycline (Unverified Allergy, Severe, HIVES, 06/04/17) duloxetine (Unverified Allergy, Severe, VOMITING, 06/04/17) ferumoxytol (Unverified Allergy, Severe, HIVES, 06/04/17) fluvoxamine (Unverified Allergy, Severe, VOMITING, 06/04/17) mirtazapine (Unverified Allergy, Severe, Sedation, 06/04/17) paroxetine (Unverified Allergy, Severe, VOMITING, 06/04/17) penicillin G (Unverified Allergy, Severe, "HIVES", 06/04/17) sertraline (Unverified Allergy, Severe, VOMITING, 06/04/17) venlafaxine (Unverified Allergy, Severe, VOMITING, 06/04/17) iodine (Unverified Allergy, Intermediate, 06/04/17) potassium iodide (Unverified Allergy, Intermediate, 06/04/17) povidone-iodine (Unverified Allergy, Intermediate, 06/04/17) sodium iodide (Unverified Allergy, Intermediate, 06/04/17) sodium iodide (Unverified Allergy, Intermediate, 06/04/17) adenosine (Unverified Adverse Reaction, Severe, "DR STATED NOT TO TAKE", 06/04/17) diatrizoate meglumine (Unverified Adverse Reaction, Severe, BURNING IN ALL MUCOUS MEMBRANES, 06/04/17) diclofenac (Unverified Adverse Reaction, Severe, "JITTERY", 06/04/17) epinephrine (Unverified Adverse Reaction, Severe, TACHYCARDIA, 06/04/17) etodolac (Unverified Adverse Reaction, Severe, "JITTERY", 06/04/17) flurbiprofen (Unverified Adverse Reaction, Severe, "JITTERY", 06/04/17) gadobenic acid (Unverified Adverse Reaction, Severe, BURNING IN ALL MUCOUS MEMBRANES, 06/04/17) gadodiamide (Unverified Adverse Reaction, Severe, BURNING IN ALL MUCOUS MEMBRANES, 06/04/17) gadoteridol (Unverified Adverse Reaction, Severe, BURNING IN ALL MUCOUS MEMBRANES, 06/04/17) hydromorphone (Unverified Adverse Reaction, Severe, Nausea/Vomiting, ) ibuprofen (Unverified Adverse Reaction, Severe, "JITTERY", 06/04/17) indomethacin (Unverified Adverse Reaction, Severe, "JITTERY", 06/04/17) iodixanol (Unverified Adverse Reaction, Severe, BURNING IN ALL MUCOUS MEMBRANES, 06/04/17) iohexol (Unverified Adverse Reaction, Severe, BURNING IN ALL MUCOUS MEMBRANES, 06/04/17) ketoprofen (Unverified Adverse Reaction, Severe, "JITTERY", 06/04/17) ketorolac (Unverified Adverse Reaction, Severe, "JITTERY", 06/04/17) metoclopramide (Unverified Adverse Reaction, Severe, "EPS", 06/04/17) naproxen (Unverified Adverse Reaction, Severe, "JITTERY", 06/04/17) oxaprozin (Unverified Adverse Reaction, Severe, "JITTERY", 06/04/17) prochlorperazine (Unverified Adverse Reaction, Severe, "EPS", 06/04/17) promethazine (Unverified Adverse Reaction, Severe, "EPS", 06/04/17) Reported Meds & Prescriptions Reported Meds & Active Scripts Active Polyethylene Glycol 3350 Powder (Polyethylene Glycol) 17 Gram Pow 17 Gm PO BID 30 Days Percocet (Oxycodone-Acetaminophen) 10-325 mg Tab 1 Tab PO Q6HR PRN Zofran Odt (Ondansetron Odt) 4 Mg Tab 4 Mg SL Q6HR PRN Reported Nexium (Esomeprazole DR) 40 Mg Capdr 40 Mg PO DAILY Vitamin D-1000 (Cholecalciferol) 1,000 Unit Tab 1,000 Units PO DAILY Fludrocortisone (Fludrocortisone Acetate) 0.1 Mg Tab 0.1 Mg PO DAILY Ativan (Lorazepam) 1 Mg Tab 1 Mg PO BID PRN Synthroid (Levothyroxine Sodium) 25 Mcg Tab 68.5 Mcg PO 3 DAYS Synthroid (Levothyroxine Sodium) 137 Mcg Tab 62.5 Mcg PO 4 DAYS Prednisone 1 Mg Tab 1 Mg PO DIRECTED Atenolol 25 Mg Tab 25 Mg PO TID Estrace Vaginal (Estradiol) 0.01% Cream 1 Appl VAGINAL HS Review of Systems Except as stated in HPI: all other systems reviewed are Neg Physical Exam Narrative GENERAL: Alert female. Well-appearing. In no distress. SKIN: Warm and dry. HEAD: Normocephalic. EYES: No scleral icterus. No injection or drainage. NECK: Supple, trachea midline. No JVD or lymphadenopathy. CARDIOVASCULAR: Regular rate and rhythm without murmurs, gallops, or rubs. Tenderness to the right anterior chest wall. No crepitus felt. RESPIRATORY: Breath sounds equal bilaterally. No accessory muscle use. GASTROINTESTINAL: Abdomen soft, non-tender, nondistended. MUSCULOSKELETAL: No cyanosis, or edema. BACK: Nontender without obvious deformity. No CVA tenderness. Data Data Last Documented VS Vital Signs Date Time Temp Pulse Resp B/P (MAP) Pulse Ox O2 Delivery O2 Flow Rate FiO2 06/04/17 12:35 06/04/17 10:07 98.2 72 16 97 Orders Orders Ribs, Uni (W/Exp Cxr-Min 3vw) (06/04/17 ) Ed Discharge Order (06/04/17 12:14) MDM Medical Decision Making Medical Screen Exam Complete: Yes Emergency Medical Condition: Yes Differential Diagnosis Rib contusion, rib fracture, pneumothorax Narrative Course This is a 57-year-old female with right anterior lateral rib pain after minor blunt trauma to the area 5 days ago. She ran into her shoulder. She has had pain at the site since. She has pain with deep inspiration. She denies shortness of breath. She is well-appearing. Her vital signs are stable. There is no palpable fracture crepitus. Lung sounds are clear bilaterally. Chest x-ray and rib x-rays are negative for fracture or pneumothorax. This was discussed with patient. She was instructed to avoid heavy lifting, strenuous activity and take OTC Tylenol or Motrin for pain. She is to follow-up with her primary doctor. Diagnosis Primary Impression: Rib contusion Qualified Codes: S20.211A - Contusion of right front wall of thorax, initial encounter Referrals: Primary Care Physician Additional Instructions: Take [id number] Tylenol or Motrin for pain. Avoid heavy lifting or shortness activity. Follow-up with her primary doctor. Return if he developed new or worsening symptoms. Disposition: 01 DISCHARGE HOME Condition: Stable Tahira Green Jun 04, 2017 12:13
== END 2017-06-04 12:35 | disposition home or self-care (01) ==
LOC: PHED 09:51 → PHEFT 12:35
DX: S20.211A Contusion of right front wall of thorax, initial encounter (principal); E07.9 Disorder of thyroid, unspecified; E78.00 Pure hypercholesterolemia, unspecified; Z79.01 Long term (current) use of anticoagulants; W51.XXXA Accidental striking against or bumped into by another person, initial encounter; Z86.2 Personal history of diseases of the blood and blood-forming organs and certain disorders involving the immune mechanism; Z86.59 Personal history of other mental and behavioral disorders; Z86.79 Personal history of other diseases of the circulatory system; Z86.39 Personal history of other endocrine, nutritional and metabolic disease; Z87.19 Personal history of other diseases of the digestive system; Z87.448 Personal history of other diseases of urinary system; Z86.69 Personal history of other diseases of the nervous system and sense organs
CPT/HCPCS: 71101; 99283

== ENCOUNTER 2017-10-14 04:40 | Emergency (ER) | payer MEDICARE ==
[~2017-10-14] VITALS: Ht 157.5 cm; Wt 52.8 kg
[~2017-10-14 04:40] MED LIST changes: -[UNRECOGNIZED DRUG - CODE] VAGINAL
[2017-10-14 04:42] VITALS: BP 117/55; PULSE 73; RESP 16; TEMP 98.3; O2SAT 96
[2017-10-14] MEDS ORDERED: LEVO.075 PO (05:05)
[2017-10-14] MEDS ORDERED: AZIT250T3 PO (05:05)
[2017-10-14] MEDS ORDERED: PERC5TAB12 PO (05:05)
[2017-10-14] MEDS ORDERED: FLOR250C PO (05:05)
[2017-10-14] MEDS ORDERED: PROB1CHW5 CHEW (05:05)
[2017-10-14] MEDS ORDERED: LIDOCAINE VISCOUS 2% SOLN 15 ML UDC SWISH-SWAL ONE (05:15)
[2017-10-14] MEDS ORDERED: ALUMINUM/MAGNESIUM/SIMETH 30 ML CUP PO ONE (05:15)
[2017-10-14 05:32] LABS: AUTOMATED NEUTROPHIL # 4.9 TH/MM3 (1.8-7.7); BASOPHIL # 0.1 TH/MM3 (0-0.2); BASOPHIL % 0.6 % (0.0-2.0); EOSINOPHIL # 0.1 TH/MM3 (0-0.4); EOSINOPHIL % 1.2 % (0.0-4.0); HEMATOCRIT 39.4 % (35.0-46.0); HEMOGLOBIN 12.2 GM/DL (11.6-15.3); LYMPH % 30.6 % (9.0-44.0); LYMPHOCYTE # 2.4 TH/MM3 (1.0-4.8); MEAN CELL VOLUME 65.9 FL (80.0-100.0); MEAN CORPUSCULAR HEMOGLOBIN 20.5 PG (27.0-34.0); MEAN PLATELET VOLUME 11.9 FL (7.0-11.0); MONOCYTE # 0.6 TH/MM3 (0-0.9); NEUT % 60.6 % (16.0-70.0); PLATELET COUNT 144 TH/MM3 (150-450); RED BLOOD COUNT 5.98 MIL/MM3 (4.00-5.30); RED CELL DISTRIBUTION WIDTH 15.7 % (11.6-17.2)
[2017-10-14 05:59] LABS: ALBUMIN 3.9 GM/DL (3.4-5.0); AST (GOT) 17 U/L (15-37); BICARBONATE 28.8 MEQ/L (21.0-32.0); BLOOD UREA NITROGEN 22 MG/DL (7-18); CALCIUM 9.5 MG/DL (8.5-10.1); CHLORIDE 106 MEQ/L (98-107); CREATININE 0.83 MG/DL (0.50-1.00); GLOMERULAR FILTRATION RATE 71 ML/MIN (>89); GLUCOSE,RANDOM 86 MG/DL (74-106); SODIUM (NA) 141 MEQ/L (136-145)
[2017-10-14 06:00] LABS: ALT (GPT) 23 U/L (10-53)
[2017-10-14 06:04] LABS: ALKALINE PHOSPHATASE 45 U/L (45-117); TOTAL BILIRUBIN ADULT 0.4 MG/DL (0.2-1.0); TOTAL PROTEIN 7.4 GM/DL (6.4-8.2); TROPONIN I LESS THAN 0.02 NG/ML (0.02-0.05)
--- NOTE | 2017-10-14 06:56 | PD ---
HPI Chief Complaint: Chest Pain Time Seen by Provider: 04:52 Travel History International Travel<30 days: No Contact w/Intl Traveler<30days: No Traveled to known affect area: No History of Present Illness HPI pt is a 57 yr old female with addisions disease and recent GI issues with gastroparesis and nausea , has Dr Shearer and [facility] , pt was recently inopt and had EGD AND NO SPECIFIC findings . 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, MIX CONNECTIVE AUTOIMMINE) Blood Disorders: No Anxiety: Yes Depression: No Heart Rhythm Problems: Yes (PALPITATIONS, TACHYCARDIA, PVC'S, PAC'S) Cancer: No Cardiac Catheterization: Yes (RT HEART CATH, PULM ANGIOGRAM,TILT TABLE TEST) High Cholesterol: Yes Chemotherapy: No Chest Pain: No Congestive Heart Failure: No COPD: No Cerebrovascular Accident: No Diabetes: No Diminished Hearing: No Endocrine: Yes (ADDISONS) Gastrointestinal Disorders: Yes (GASTROPARESIS) GERD: Yes Glaucoma: No Genitourinary: Yes Headaches: No Hepatitis: No Hiatal Hernia: No Heparin Induced Thrombocytopen: No Hypertension: No Immune Disorder: Yes (LUPUS) Implanted Vascular Access Dvce: Yes Kidney Stones: No Musculoskeletal: No Neurologic: Yes Psychiatric: Yes (ANXIETY, PTSD) Reproductive: No Respiratory: No Immunizations Current: No Migraines: No Myocardial Infarction: No Radiation Therapy: No Renal Failure: No Seizures: No Sickle Cell Disease: No Sleep Apnea: No Thyroid Disease: Yes (HASHIMOTOS THYROIDITIS,ADDISONS DISEASE) Ulcer: Yes Tetanus Vaccination: > 5 Years Influenza Vaccination: Yes PNEUMOCCOCAL Vaccine (Year): 2 Menopausal: Yes : 3 Para: 3 Miscarriage: 0 : 0 Past Surgical History Abdominal Surgery: Yes ( TIMES 3) AICD: No Appendectomy: No Arteriovenous Shunt: No Body Medical Devices: partial left hip 2011 (Dr. Hobbs) Cardiac Surgery: No Section: Yes (X 3) Cholecystectomy: No Coronary Artery Bypass Graft: No Ear Surgery: No Endocrine Surgery: No Eye Surgery: No Genitourinary Surgery: No Gynecologic Surgery: Yes (PARTIAL HYSTERECTOMY) Hysterectomy: Yes Insulin Pump: No Joint Replacement: Yes (LEFT HIP) Neurologic Surgery: No Oral Surgery: Yes (TONSILLECTOMY) Pacemaker: No Thoracic Surgery: No Tonsillectomy: Yes Other Surgery: Yes Family History Family Myocardial Infarction: Yes Social History Alcohol Use: No Tobacco Use: No Substance Use: No Allergies-Medications (Allergen,Severity, Reaction): Coded Allergies: Histamine H2 Inhibitors (Unverified Allergy, Severe, "PALPITATIONS", ) Sulfa (Sulfonamide Antibiotics) (Unverified Allergy, Severe, anaphylactic shock, 10/14/17) amoxicillin (Unverified Allergy, Severe, hives, 10/14/17) citalopram (Unverified Allergy, Severe, VOMITING, 10/14/17) clotrimazole (Unverified Allergy, Severe, "HIVES", 10/14/17) doxycycline (Unverified Allergy, Severe, HIVES, 10/14/17) duloxetine (Unverified Allergy, Severe, VOMITING, 10/14/17) ferumoxytol (Unverified Allergy, Severe, HIVES, 10/14/17) fluvoxamine (Unverified Allergy, Severe, VOMITING, 10/14/17) mirtazapine (Unverified Allergy, Severe, Sedation, 10/14/17) paroxetine (Unverified Allergy, Severe, VOMITING, 10/14/17) penicillin G (Unverified Allergy, Severe, "HIVES", 10/14/17) sertraline (Unverified Allergy, Severe, VOMITING, 10/14/17) venlafaxine (Unverified Allergy, Severe, VOMITING, 10/14/17) iodine (Unverified Allergy, Intermediate, 10/14/17) potassium iodide (Unverified Allergy, Intermediate, 10/14/17) povidone-iodine (Unverified Allergy, Intermediate, 10/14/17) sodium iodide (Unverified Allergy, Intermediate, 10/14/17) sodium iodide (Unverified Allergy, Intermediate, 10/14/17) adenosine (Unverified Adverse Reaction, Severe, "DR STATED NOT TO TAKE", ) diatrizoate meglumine (Unverified Adverse Reaction, Severe, BURNING IN ALL MUCOUS MEMBRANES, 10/14/17) diclofenac (Unverified Adverse Reaction, Severe, "JITTERY", 10/14/17) epinephrine (Unverified Adverse Reaction, Severe, TACHYCARDIA, 10/14/17) etodolac (Unverified Adverse Reaction, Severe, "JITTERY", 10/14/17) flurbiprofen (Unverified Adverse Reaction, Severe, "JITTERY", 10/14/17) gadobenic acid (Unverified Adverse Reaction, Severe, BURNING IN ALL MUCOUS MEMBRANES, 10/14/17) gadodiamide (Unverified Adverse Reaction, Severe, BURNING IN ALL MUCOUS MEMBRANES, 10/14/17) gadoteridol (Unverified Adverse Reaction, Severe, BURNING IN ALL MUCOUS MEMBRANES, 10/14/17) hydromorphone (Unverified Adverse Reaction, Severe, Nausea/Vomiting, ) ibuprofen (Unverified Adverse Reaction, Severe, "JITTERY", 10/14/17) indomethacin (Unverified Adverse Reaction, Severe, "JITTERY", 10/14/17) iodixanol (Unverified Adverse Reaction, Severe, BURNING IN ALL MUCOUS MEMBRANES, 10/14/17) iohexol (Unverified Adverse Reaction, Severe, BURNING IN ALL MUCOUS MEMBRANES, 10/14/17) ketoprofen (Unverified Adverse Reaction, Severe, "JITTERY", 10/14/17) ketorolac (Unverified Adverse Reaction, Severe, "JITTERY", 10/14/17) metoclopramide (Unverified Adverse Reaction, Severe, "EPS", 10/14/17) naproxen (Unverified Adverse Reaction, Severe, "JITTERY", 10/14/17) oxaprozin (Unverified Adverse Reaction, Severe, "JITTERY", 10/14/17) prochlorperazine (Unverified Adverse Reaction, Severe, "EPS", 10/14/17) promethazine (Unverified Adverse Reaction, Severe, "EPS", 10/14/17) Reported Meds & Prescriptions Reported Meds & Active Scripts Active Polyethylene Glycol 3350 Powder (Polyethylene Glycol) 17 Gram Pow 17 Gm PO BID 30 Days Zofran Odt (Ondansetron Odt) 4 Mg Tab 4 Mg SL Q6HR PRN Reported Align (Lactobacillus Rhamnosus (GG)) 10.5 Mg Chew 10.5 Mg CHEW Florastor (Saccharomyces Boulardii) 250 Mg Cap 250 Mg PO DAILY Synthroid (Levothyroxine Sodium) 75 Mcg Tab 62.5 Mcg PO DAILY Azithromycin 250 Mg Tab 200 Mg PO DIRECTED Take 2 tabs (500 mg) on day 1 then 1 tab daily x 4 days. Percocet (Oxycodone-Acetaminophen) 5-325 mg Tab 1 Tab PO Q6H PRN Nexium (Esomeprazole DR) 40 Mg Capdr 40 Mg PO DAILY Vitamin D-1000 (Cholecalciferol) 1,000 Unit Tab 1,000 Units PO DAILY Fludrocortisone (Fludrocortisone Acetate) 0.1 Mg Tab 0.1 Mg PO DAILY Ativan (Lorazepam) 1 Mg Tab 1 Mg PO BID PRN Prednisone 1 Mg Tab 1 Mg PO DIRECTED Atenolol 25 Mg Tab 25 Mg PO TID Estrace Vaginal (Estradiol) 0.01% Cream 1 Appl VAGINAL HS Review of Systems Except as stated in HPI: all other systems reviewed are Neg Gastrointestinal: Positive: Nausea, Abdominal Pain Physical Exam Narrative GENERAL: non toxic no severe pain presentation SKIN: Warm and dry. HEAD: Atraumatic. Normocephalic. EYES: Pupils equal and round. No scleral icterus. No injection or drainage. ENT: No nasal bleeding or discharge. Mucous membranes pink and moist. NECK: Trachea midline. No JVD. CARDIOVASCULAR: Regular rate and rhythm. RESPIRATORY: No accessory muscle use. Clear to auscultation. Breath sounds equal bilaterally. GASTROINTESTINAL: Abdomen epigastric area is -tender, nondistended. Hepatic and splenic margins not palpable. MUSCULOSKELETAL: Extremities without clubbing, cyanosis, or edema. No obvious deformities. NEUROLOGICAL: Awake and alert. No obvious cranial nerve deficits. Motor grossly within normal limits. Five out of 5 muscle strength in the arms and legs. Normal speech. PSYCHIATRIC: Appropriate mood and affect; insight and judgment normal. Data Data Last Documented VS Vital Signs Date Time Temp Pulse Resp B/P (MAP) Pulse Ox O2 Delivery O2 Flow Rate FiO2 10/14/17 13:23 96 10/14/17 13:22 74 16 10/14/17 08:22 Room Air Orders Orders Complete Blood Count With Diff (10/14/17 05:00) Comprehensive Metabolic Panel (10/14/17 05:00) Ckmb (Isoenzyme) Profile (10/14/17 05:00) Troponin I (10/14/17 05:00) Lipase (10/14/17 05:00) Electrocardiogram (10/14/17 ) Al-Mag Hy-Si 40-40-4 Mg/Ml Liq (Mag-Al P (10/14/17 05:15) Lidocaine 2% Viscous (Xylocaine 2% Visco (10/14/17 05:15) Ondansetron Inj (Zofran Inj) (10/14/17 07:00) Morphine Inj (Morphine Inj) (10/14/17 07:00) Hydrocortisone Inj (Solucortef Inj) (10/14/17 07:15) Sodium Chlor 0.9% 1000 Ml Inj (Ns 1000 M (10/14/17 07:15) Oral Contrast - Adult (10/14/17 07:15) Diatrizoate Liq ( Gastroview Liq) (10/14/17 08:03) Ct Abd/Pel W/O Iv Contrast (10/14/17 ) Amylase (10/14/17 08:51) Urinalysis - C+S If Indicated (10/14/17 10:39) Urine Culture (10/14/17 11:20) Ed Discharge Order (10/14/17 12:37) Labs Laboratory Tests Test 10/14/17 05:10 10/14/17 11:20 White Blood Count 8.0 TH/MM3 Red Blood Count 5.98 MIL/MM3 Hemoglobin 12.2 GM/DL Hematocrit 39.4 % Mean Corpuscular Volume 65.9 FL Mean Corpuscular Hemoglobin 20.5 PG Mean Corpuscular Hemoglobin Concent 31.0 % Red Cell Distribution Width 15.7 % Platelet Count 144 TH/MM3 Mean Platelet Volume 11.9 FL Neutrophils (%) (Auto) 60.6 % Lymphocytes (%) (Auto) 30.6 % Monocytes (%) (Auto) 7.0 % Eosinophils (%) (Auto) 1.2 % Basophils (%) (Auto) 0.6 % Neutrophils # (Auto) 4.9 TH/MM3 Lymphocytes # (Auto) 2.4 TH/MM3 Monocytes # (Auto) 0.6 TH/MM3 Eosinophils # (Auto) 0.1 TH/MM3 Basophils # (Auto) 0.1 TH/MM3 CBC Comment DIFF FINAL Differential Comment Blood Urea Nitrogen 22 MG/DL Creatinine 0.83 MG/DL Random Glucose 86 MG/DL Total Protein 7.4 GM/DL Albumin 3.9 GM/DL Calcium Level 9.5 MG/DL Alkaline Phosphatase 45 U/L Aspartate Amino Transf (AST/SGOT) 17 U/L Alanine Aminotransferase (ALT/SGPT) 23 U/L Total Bilirubin 0.4 MG/DL Sodium Level 141 MEQ/L Potassium Level 3.5 MEQ/L Chloride Level 106 MEQ/L Carbon Dioxide Level 28.8 MEQ/L Anion Gap 6 MEQ/L Estimat Glomerular Filtration Rate 71 ML/MIN Total Creatine Kinase 39 U/L Troponin I LESS THAN 0.02 NG/ML Amylase Level 111 U/L Lipase 164 U/L Urine Color YELLOW Urine Turbidity HAZY Urine pH 6.5 Urine Specific [place] 1.014 Urine Protein NEG mg/dL Urine Glucose (UA) NEG mg/dL Urine Ketones NEG mg/dL Urine Occult Blood NEG Urine Nitrite NEG Urine Bilirubin NEG Urine Urobilinogen LESS THAN 2.0 MG/DL Urine Leukocyte Esterase NEG Urine RBC LESS THAN 1 /hpf Urine WBC 1 /hpf Urine Squamous Epithelial Cells 5 /hpf Urine Bacteria MANY /hpf Urine Mucus MOD /lpf Microscopic Urinalysis Comment CULTURE INDICATED MDM Medical Decision Making Medical Screen Exam Complete: Yes Emergency Medical Condition: Yes Differential Diagnosis ABDOMEN PAIN , CHRONIC VS PANCREATITIS vs GB disease vs ileus obstruction ABDO PIN NOS Narrative Course pt is medicated and PREPPED fr CT with PO contrast signed out to on coming Diagnosis Primary Impression: Abdominal pain Samuel Sims MD Oct 14, 2017 06:56
[2017-10-14] MEDS ORDERED: ONDANSETRON HCL 4 MG/2 ML VIAL IV PUSH ONE (07:00)
[2017-10-14] MEDS ORDERED: MORPHINE SULFATE 2 MG/ML SYRINGE IV PUSH ONE (07:00)
[2017-10-14] MEDS ORDERED: HYDROCORTISONE SOD SUCCINATE 100 MG VIAL IV PUSH ONE (07:15)
[2017-10-14] MEDS ORDERED: SODIUM CHLOR 0.9% 1000 ML INJ 1,000 ML IV ONE (07:15)
--- NOTE | 2017-10-14 07:17 | PD ---
Physical Exam Date Seen by Provider: Oct 14, 2017 Time Seen by Provider: 07:15 Narrative The patient is a 57-year-old female was initially evaluated by the previous physician. Please refer to the initial history, physical, diagnostic evaluation , and treatment modality plan. The patient was signed out at [address] of the abdomen and pelvis pending. Data Data Last Documented VS Vital Signs Date Time Temp Pulse Resp B/P (MAP) Pulse Ox O2 Delivery O2 Flow Rate FiO2 10/14/17 08:22 Room Air 10/14/17 08:17 63 20 115/54 (74) 97 10/14/17 04:42 98.3 Orders Orders Complete Blood Count With Diff (10/14/17 05:00) Comprehensive Metabolic Panel (10/14/17 05:00) Ckmb (Isoenzyme) Profile (10/14/17 05:00) Troponin I (10/14/17 05:00) Lipase (10/14/17 05:00) Electrocardiogram (10/14/17 ) Al-Mag Hy-Si 40-40-4 Mg/Ml Liq (Mag-Al P (10/14/17 05:15) Lidocaine 2% Viscous (Xylocaine 2% Visco (10/14/17 05:15) Ondansetron Inj (Zofran Inj) (10/14/17 07:00) Morphine Inj (Morphine Inj) (10/14/17 07:00) Hydrocortisone Inj (Solucortef Inj) (10/14/17 07:15) Sodium Chlor 0.9% 1000 Ml Inj (Ns 1000 M (10/14/17 07:15) Oral Contrast - Adult (10/14/17 07:15) Diatrizoate Liq ( Gastroview Liq) (10/14/17 08:03) Ct Abd/Pel W/O Iv Contrast (10/14/17 ) Amylase (10/14/17 08:51) Urinalysis - C+S If Indicated (10/14/17 10:39) Urine Culture (10/14/17 11:20) Labs Laboratory Tests Test 10/14/17 05:10 10/14/17 11:20 White Blood Count 8.0 TH/MM3 Red Blood Count 5.98 MIL/MM3 Hemoglobin 12.2 GM/DL Hematocrit 39.4 % Mean Corpuscular Volume 65.9 FL Mean Corpuscular Hemoglobin 20.5 PG Mean Corpuscular Hemoglobin Concent 31.0 % Red Cell Distribution Width 15.7 % Platelet Count 144 TH/MM3 Mean Platelet Volume 11.9 FL Neutrophils (%) (Auto) 60.6 % Lymphocytes (%) (Auto) 30.6 % Monocytes (%) (Auto) 7.0 % Eosinophils (%) (Auto) 1.2 % Basophils (%) (Auto) 0.6 % Neutrophils # (Auto) 4.9 TH/MM3 Lymphocytes # (Auto) 2.4 TH/MM3 Monocytes # (Auto) 0.6 TH/MM3 Eosinophils # (Auto) 0.1 TH/MM3 Basophils # (Auto) 0.1 TH/MM3 CBC Comment DIFF FINAL Differential Comment Blood Urea Nitrogen 22 MG/DL Creatinine 0.83 MG/DL Random Glucose 86 MG/DL Total Protein 7.4 GM/DL Albumin 3.9 GM/DL Calcium Level 9.5 MG/DL Alkaline Phosphatase 45 U/L Aspartate Amino Transf (AST/SGOT) 17 U/L Alanine Aminotransferase (ALT/SGPT) 23 U/L Total Bilirubin 0.4 MG/DL Sodium Level 141 MEQ/L Potassium Level 3.5 MEQ/L Chloride Level 106 MEQ/L Carbon Dioxide Level 28.8 MEQ/L Anion Gap 6 MEQ/L Estimat Glomerular Filtration Rate 71 ML/MIN Total Creatine Kinase 39 U/L Troponin I LESS THAN 0.02 NG/ML Amylase Level 111 U/L Lipase 164 U/L Urine Color YELLOW Urine Turbidity HAZY Urine pH 6.5 Urine Specific [place] 1.014 Urine Protein NEG mg/dL Urine Glucose (UA) NEG mg/dL Urine Ketones NEG mg/dL Urine Occult Blood NEG Urine Nitrite NEG Urine Bilirubin NEG Urine Urobilinogen LESS THAN 2.0 MG/DL Urine Leukocyte Esterase NEG Urine RBC LESS THAN 1 /hpf Urine WBC 1 /hpf Urine Squamous Epithelial Cells 5 /hpf Urine Bacteria MANY /hpf Urine Mucus MOD /lpf Microscopic Urinalysis Comment CULTURE INDICATED MDM Medical Record Reviewed: Yes Supervised Visit with ANTONIA: No Interpretation(s) Last Impressions Abdomen/Pelvis CT 10/14/17 0000 Signed Impressions: Service Date/Time: October 10:22 - CONCLUSION: 1. Multiple tiny 2 mm calcified nonobstructing renal calculi bilaterally. 2. Mild scoliosis of the lumbar spine. Marcelo Arizmendi MD Laboratory Tests Test 10/14/17 05:10 10/14/17 11:20 White Blood Count 8.0 TH/MM3 Red Blood Count 5.98 MIL/MM3 Hemoglobin 12.2 GM/DL Hematocrit 39.4 % Mean Corpuscular Volume 65.9 FL Mean Corpuscular Hemoglobin 20.5 PG Mean Corpuscular Hemoglobin Concent 31.0 % Red Cell Distribution Width 15.7 % Platelet Count 144 TH/MM3 Mean Platelet Volume 11.9 FL Neutrophils (%) (Auto) 60.6 % Lymphocytes (%) (Auto) 30.6 % Monocytes (%) (Auto) 7.0 % Eosinophils (%) (Auto) 1.2 % Basophils (%) (Auto) 0.6 % Neutrophils # (Auto) 4.9 TH/MM3 Lymphocytes # (Auto) 2.4 TH/MM3 Monocytes # (Auto) 0.6 TH/MM3 Eosinophils # (Auto) 0.1 TH/MM3 Basophils # (Auto) 0.1 TH/MM3 CBC Comment DIFF FINAL Differential Comment Blood Urea Nitrogen 22 MG/DL Creatinine 0.83 MG/DL Random Glucose 86 MG/DL Total Protein 7.4 GM/DL Albumin 3.9 GM/DL Calcium Level 9.5 MG/DL Alkaline Phosphatase 45 U/L Aspartate Amino Transf (AST/SGOT) 17 U/L Alanine Aminotransferase (ALT/SGPT) 23 U/L Total Bilirubin 0.4 MG/DL Sodium Level 141 MEQ/L Potassium Level 3.5 MEQ/L Chloride Level 106 MEQ/L Carbon Dioxide Level 28.8 MEQ/L Anion Gap 6 MEQ/L Estimat Glomerular Filtration Rate 71 ML/MIN Total Creatine Kinase 39 U/L Troponin I LESS THAN 0.02 NG/ML Amylase Level 111 U/L Lipase 164 U/L Urine Color YELLOW Urine Turbidity HAZY Urine pH 6.5 Urine Specific [place] 1.014 Urine Protein NEG mg/dL Urine Glucose (UA) NEG mg/dL Urine Ketones NEG mg/dL Urine Occult Blood NEG Urine Nitrite NEG Urine Bilirubin NEG Urine Urobilinogen LESS THAN 2.0 MG/DL Urine Leukocyte Esterase NEG Urine RBC LESS THAN 1 /hpf Urine WBC 1 /hpf Urine Squamous Epithelial Cells 5 /hpf Urine Bacteria MANY /hpf Urine Mucus MOD /lpf Microscopic Urinalysis Comment CULTURE INDICATED Differential Diagnosis Differential diagnosis includes adrenal crisis, pancreatitis, gastritis, atypical appendicitis, biliary colic, atypical cholecystitis, pyelonephritis, gastroparesis, abdominal pain NOS. Narrative Course The patient was initially evaluated by the previous physician. Please refer to the initial history, physical, diagnostic evaluation, and treatment modality plan. The patient was signed out at [address] of the abdomen and pelvis pending. CT the abdomen and pelvis is negative. The patient then requested an amylase level despite the lipase level being negative. Amylase level was ordered and was negative. The patient then requested a UA be performed, UA was performed, reveals bacteria but no WBCs. Will await culture. I discussed the patient with her primary physician, Dr. Duron. After discussion it was agreed the patient can follow-up with him later this week or early next week. There is no indication for acute admission, the patient also has proper follow-up outpatient with her furniture rental consultant Dr. Shearer. The patient already has pain medications at home, oxycodone. The patient was advised of her findings in the emergency department and need to follow-up as an outpatient. Diagnosis Primary Impression: Abdominal pain Qualified Codes: R10.13 - Epigastric pain Patient Instructions: General Instructions Additional Instruction: Continue previous medications as directed. Please provide the patient a copy of her CT results and lab results at discharge. Follow-up with your primary physician, Dr. Duron, and your furniture rental consultant, Dr. Shearer. Return for fever, intractable abdominal pain, persistent nausea and vomiting. Med/Other Pt SpecificInfo: No Change to Meds Disposition: 01 DISCHARGE HOME Condition: Stable Woody Smith MD Oct 14, 2017 07:17
[2017-10-14] MEDS ORDERED: DIATRIZOATE MEGLUM/DIATRIZOATE SOD 9 ML CUP ONE (08:03)
[2017-10-14 08:17] VITALS: BP 115/54; PULSE 63; RESP 20; O2SAT 97
--- NOTE | 2017-10-14 10:35 | RADRPT ---
EXAM DATE/TIME: 10/14/2017 10:22 [facility] COMPARISON: No previous studies available for comparison. INDICATIONS : Epigastric pain. ORAL CONTRAST: Prescribed oral contrast ingested. RADIATION DOSE: 4.69 CTDIvol (mGy) MEDICAL HISTORY : Gastroparesis. Cardiovascular disease Lupus. SURGICAL HISTORY : Hysterectomy. ENCOUNTER: Initial ACUITY: 1 day PAIN SCALE: 5/10 LOCATION: Bilateral upper quadrant TECHNIQUE: Volumetric scanning of the abdomen and pelvis was performed. Using automated exposure control and ad justment of the mA and/or kV according to patient size, radiation dose was kept as low as reasonably achievable to obtain optimal diagnostic quality images. DICOM format image data is available electro nically for review and comparison. FINDINGS: LOWER LUNGS: The visualized lower lungs are clear. LIVER: Homogeneous density without lesion. There is no dilation of the biliary tree. No calcified gallston es. SPLEEN: Normal size without lesion. PANCREAS: Within normal limits. KIDNEYS: Normal in size and shape. There are multiple tiny 2 mm calcified nonobstructing bilateral renal calc laly. There is no mass or hydronephrosis. ADRENAL GLANDS: Within normal limits. VASCULAR: There is no aortic aneurysm. BOWEL/MESENTERY: The stomach, small bowel, and colon demonstrate no acute abnormality. There is no free intraperitone al air or fluid. ABDOMINAL WALL: Within normal limits. RETROPERITONEUM: There is no lymphadenopathy. BLADDER: No wall thickening or mass. REPRODUCTIVE: Within normal limits. INGUINAL: There is no lymphadenopathy or hernia. MUSCULOSKELETAL: Mild scoliosis of the lumbar spine. CONCLUSION: 1. Multiple tiny 2 mm calcified nonobstructing renal calculi bilaterally. 2. Mild scoliosis of the lumbar spine. Marcelo Arizmendi MD on October 14, 2017 at 10:28 Board Certified Radiologist. This report was verified electronically.
[2017-10-14 12:09] LABS: BACTERIA, URINE MANY /hpf; BILIRUBIN, URINE NEG (NEG); BLOOD, URINE NEG (NEG); GLUCOSE,URINE NEG (NEG); KETONE, URINE NEG (NEG); MUCUS URINE MOD /lpf (OCC); NITRITE,URINE NEG (NEG); PH, URINE 6.5 (5.0-8.5); SQUAMOUS EPITHELIAL CELL URINE 5 /hpf (0-5); URINE COLOR YELLOW (YELLW/STRAW); URINE LEUKOCYTE ESTERASE NEG (NEG)
[2017-10-14 13:22] VITALS: BP 105/54; PULSE 74; RESP 16; O2SAT 96
--- NOTE | 2017-10-14 20:48 | EKG ---
Date Performed: 10/14/2017 Time Performed: 04:55:43 PTAGE: 57 years EKG: Sinus rhythm PROBABLE INFERIOR MYOCARDIAL INFARCTION ANTERIOR T WAVE CHANGES CONSISTENT WITH ISCHEMIA Compared to previous tracing, anterior changes are slightly less prominent ABNORMAL ECG PREVIOUS TRACING : 03/02/2017 22.41 DOCTOR: Jeovanny Martínez Interpretating Date/Time 10/14/2017 20:47:39
== END 2017-10-14 13:27 | disposition home or self-care (01) ==
LOC: NEPE 04:40
DX: R10.13 Epigastric pain (principal); E06.3 Autoimmune thyroiditis; K31.84 Gastroparesis
CPT/HCPCS: 74176; 80053; 81001; 82150; 82550; 83690; 84484; 85025; 87086; 93005; 96374; 96375; 99285; J1720; J2270; J2405; J7030; Q9963

== ENCOUNTER → 2017-10-18 | Outpatient (CLI) | payer MEDICARE | LOC: HEND 09:35 | DX: Z53.29 Procedure and treatment not carried out because of patient's decision for other reasons (principal); K31.84 Gastroparesis ==

== ENCOUNTER 2017-11-08 11:52 | Emergency (ER) | payer MEDICARE ==
[2017-11-08] MEDS: SODIUM CHLOR 0.9% 1000 ML INJ 1,000 ML IV (12:48)
[2017-11-08] MEDS: HYDROCORTISONE SOD SUCCINATE 100 MG VIAL IV PUSH (12:48)
[2017-11-08 12:49] LABS: AUTOMATED NEUTROPHIL # 5.4 TH/MM3 (1.8-7.7); BASOPHIL % 0.4 % (0.0-2.0); EOSINOPHIL % 0.7 % (0.0-4.0); HEMATOCRIT 37.8 % (35.0-46.0); HEMOGLOBIN 11.9 GM/DL (11.6-15.3); LYMPH % 19.8 % (9.0-44.0); LYMPHOCYTE # 1.4 TH/MM3 (1.0-4.8); MEAN CELL VOLUME 65.5 FL (80.0-100.0); MEAN CORPUSCULAR HEMOGLOBIN 20.6 PG (27.0-34.0); MEAN CORPUSCULAR HGB CONC 31.5 % (32.0-36.0); MEAN PLATELET VOLUME 9.8 FL (7.0-11.0); MONO % 4.2 % (0.0-8.0); MONOCYTE # 0.3 TH/MM3 (0-0.9); NEUT % 74.9 % (16.0-70.0); PLATELET COUNT 119 TH/MM3 (150-450); RED BLOOD COUNT 5.78 MIL/MM3 (4.00-5.30); RED CELL DISTRIBUTION WIDTH 14.6 % (11.6-17.2); WHITE BLOOD COUNT 7.1 TH/MM3 (4.0-11.0)
[2017-11-08] MEDS: ONDANSETRON HCL 4 MG/2 ML VIAL IV PUSH (12:49)
[2017-11-08 12:51] LABS: HEMO FLAGS AUTO DIFF
[2017-11-08 13:00] LABS: CHLORIDE 105 MEQ/L (98-107); POTASSIUM 3.8 MEQ/L (3.5-5.1); SODIUM (NA) 138 MEQ/L (136-145)
[2017-11-08 13:03] LABS: CALCIUM 9.1 MG/DL (8.5-10.1)
[2017-11-08 13:04] LABS: ALBUMIN 3.7 GM/DL (3.4-5.0); ANION GAP 4 MEQ/L (5-15); BICARBONATE 28.9 MEQ/L (21.0-32.0); BLOOD UREA NITROGEN 21 MG/DL (7-18); GLUCOSE,RANDOM 116 MG/DL (74-106)
[2017-11-08 13:06] LABS: SCAN/DIFF AUTO DIFF CONFIRMED
[2017-11-08 13:07] LABS: ALT (GPT) 22 U/L (10-53); AST (GOT) 15 U/L (15-37); CREATININE 0.75 MG/DL (0.50-1.00); GLOMERULAR FILTRATION RATE 80 ML/MIN (>89)
[2017-11-08 13:09] LABS: TOTAL BILIRUBIN ADULT 0.6 MG/DL (0.2-1.0); TOTAL PROTEIN 7.3 GM/DL (6.4-8.2)
[2017-11-08 13:10] LABS: ALKALINE PHOSPHATASE 45 U/L (45-117)
== END 2017-11-08 14:02 | disposition home or self-care (01) ==
LOC: PHED 11:52
DX: K52.9 Noninfective gastroenteritis and colitis, unspecified (principal); E27.1 Primary adrenocortical insufficiency; K31.84 Gastroparesis; D56.9 Thalassemia, unspecified; M35.00 Sjogren syndrome, unspecified; M32.9 Systemic lupus erythematosus, unspecified; K21.9 Gastro-esophageal reflux disease without esophagitis; F41.9 Anxiety disorder, unspecified; E06.3 Autoimmune thyroiditis
CPT/HCPCS: 80053; 85025; 96361; 96374; 96375; 99284-25

== ENCOUNTER 2017-12-08 00:22 | Emergency (ER) | payer MEDICARE ==
[~2017-12-08] VITALS: Ht 157.5 cm; Wt 51.8 kg
[~2017-12-08 00:22] MED LIST changes: +AZIT250T3 PO; +FLOR250C PO; -LEVO-86 PO; +LEVO.075 PO; -PERC10TA27 PO; +PERC5TAB12 PO; +PROB1CHW5 CHEW; -SYNT25TA PO
[2017-12-08 00:26] VITALS: BP 143/68; PULSE 63; RESP 18; TEMP 98; O2SAT 100
[2017-12-08] MEDS ORDERED: HYDR100P SQ (00:57)
[2017-12-08] MEDS ORDERED: [UNRECOGNIZED DRUG - CODE] SQ (00:57)
[2017-12-08] MEDS ORDERED: HYDROCORTISONE SOD SUCCINATE 100 MG VIAL IV PUSH ONE (01:00)
[2017-12-08] MEDS ORDERED: ONDANSETRON HCL 4 MG/2 ML VIAL IV PUSH ONE (01:00)
[2017-12-08] MEDS ORDERED: SODIUM CHLOR 0.9% 1000 ML INJ 1,000 ML IV ONE (01:00)
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
[2017-12-08 01:42] LABS: AUTOMATED NEUTROPHIL # 4.8 TH/MM3 (1.8-7.7); BASOPHIL # 0.1 TH/MM3 (0-0.2); BASOPHIL % 0.7 % (0.0-2.0); EOSINOPHIL # 0.1 TH/MM3 (0-0.4); EOSINOPHIL % 1.2 % (0.0-4.0); HEMATOCRIT 37.3 % (35.0-46.0); HEMOGLOBIN 11.7 GM/DL (11.6-15.3); LYMPH % 29.7 % (9.0-44.0); LYMPHOCYTE # 2.3 TH/MM3 (1.0-4.8); MEAN CELL VOLUME 68.6 FL (80.0-100.0); MEAN CORPUSCULAR HEMOGLOBIN 21.6 PG (27.0-34.0); MEAN CORPUSCULAR HGB CONC 31.5 % (32.0-36.0); MEAN PLATELET VOLUME 9.8 FL (7.0-11.0); MONOCYTE # 0.5 TH/MM3 (0-0.9); NEUT % 62.4 % (16.0-70.0); PLATELET COUNT 121 TH/MM3 (150-450); RED BLOOD COUNT 5.44 MIL/MM3 (4.00-5.30); RED CELL DISTRIBUTION WIDTH 15.1 % (11.6-17.2); WHITE BLOOD COUNT 7.8 TH/MM3 (4.0-11.0)
[2017-12-08 01:50] LABS: CHLORIDE 104 MEQ/L (98-107); SODIUM (NA) 139 MEQ/L (136-145)
[2017-12-08 01:54] LABS: ALBUMIN 3.7 GM/DL (3.4-5.0); BICARBONATE 28.7 MEQ/L (21.0-32.0); BLOOD UREA NITROGEN 14 MG/DL (7-18); GLUCOSE,RANDOM 102 MG/DL (74-106)
[2017-12-08 01:57] LABS: ALT (GPT) 19 U/L (10-53); AST (GOT) 19 U/L (15-37); CREATININE 0.74 MG/DL (0.50-1.00); GLOMERULAR FILTRATION RATE 81 ML/MIN (>89)
[2017-12-08 01:58] LABS: OVALOCYTES 2+ (NORMAL); TEARDROP RBCS 1+ (NORMAL)
[2017-12-08 01:59] LABS: TOTAL BILIRUBIN ADULT 0.4 MG/DL (0.2-1.0)
[2017-12-08 02:00] LABS: ALKALINE PHOSPHATASE 45 U/L (45-117)
[2017-12-08 02:10] VITALS: BP 117/63; PULSE 52; RESP 16; O2SAT 99
[2017-12-08 02:18] LABS: BILIRUBIN, URINE NEG (NEG); BLOOD, URINE NEG (NEG); GLUCOSE,URINE NEG (NEG); KETONE, URINE NEG (NEG); NITRITE,URINE NEG (NEG); PH, URINE 5.5 (5.0-8.5); URINE COLOR YELLOW (YELLW/STRAW); URINE LEUKOCYTE ESTERASE NEG (NEG)
[2017-12-08 02:24] LABS: BACTERIA, URINE FEW /hpf; RBC, URINE 0-2 /hpf (0-3); SQUAMOUS EPITHELIAL CELL URINE > 8 /hpf (0-5); WBC, URINE 0-2 /hpf (0-5)
== END 2017-12-08 02:53 | disposition home or self-care (01) ==
LOC: PHED 00:22
DX: E27.1 Primary adrenocortical insufficiency (principal); D56.9 Thalassemia, unspecified; M35.00 Sjogren syndrome, unspecified; M35.1 Other overlap syndromes; E06.3 Autoimmune thyroiditis; E78.00 Pure hypercholesterolemia, unspecified; K21.9 Gastro-esophageal reflux disease without esophagitis; M32.9 Systemic lupus erythematosus, unspecified; F43.10 Post-traumatic stress disorder, unspecified
CPT/HCPCS: 80053; 81001; 84443; 85025; 96361; 96374; 96375; 99284; J1720; J2405; J7030

== ENCOUNTER 2017-12-15 20:42 | Observation (INO) | payer MEDICARE, OTHER ==
[~2017-12-15 20:42] MED LIST changes: -AZIT250T3 PO; +HYDR100P SQ; -PROB1CHW5 CHEW; +[UNRECOGNIZED DRUG - CODE] SQ
[2017-12-15 20:52] VITALS: BP 147/68; PULSE 72; RESP 16; TEMP 97.6; O2SAT 98
[2017-12-15] MEDS ORDERED: MACR100C2 PO (21:28)
[2017-12-15] MEDS ORDERED: SODIUM CHLOR 0.9% 1000 ML INJ 1,000 ML IV ONE (21:30)
[2017-12-15] MEDS ORDERED: MORPHINE SULFATE 4 MG/ML INJ IV PUSH ONE (21:30)
[2017-12-15] MEDS ORDERED: SODIUM CHLORIDE 0.9% FLUSH 10 ML FLUSH IV FLUSH PRN (21:30)
--- NOTE | 2017-12-15 21:39 | PD ---
HPI Chief Complaint: Complaint Time Seen by Provider: 21:28 Travel History International Travel<30 days: No Contact w/Intl Traveler<30days: No Traveled to known affect area: No History of Present Illness HPI 57-year-old female presents to the emergency by private transportation for complaint of urinary frequency and dysuria 1 day. Patient has extensive past medical history that includes Burke's disease, Howell disease, gastroparesis, lupus, surgeon syndrome, fibromyalgia, recurrent urinary tract infections. Patient was recently seen 12/08/17 for an episode of mild addisonian crisis requiring Solu-Cortef IV and IV fluid bolus. Patient states symptoms of dysuria began this afternoon she contacted her primary care provider Dr. Duron who encouraged her to hydrate aggressively start her Macrobid which she has a prescription for at all times Pyridium and if needed come to the emergency room. Patient states due to her gastroparesis she could not aggressively hydrate was very nauseated so took a dose of Zofran 4 mg ODT but continues to have nausea and reports her pain is severe like a andrzej sticking up inside of her at the perineum. Patient also noticed yesterday some constipation and did take MiraLAX as part of her bowel regimen. No report of emesis or melena or hematochezia. Patient states she is not able to mount a fever so has not been feverish and does not report any chills. Patient does not report any shortness of breath chest pain or respiratory illness symptoms. Patient is requesting IV fluids pain medication blood work to be done urinalysis to be tested and a CAT scan to be performed. Patient also reports that she has kidney stones and has had episode like this once before associated with kidney stones and is afraid she is going to go into an adrenal insufficiency crisis. 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, MIX CONNECTIVE AUTOIMMINE) Blood Disorders: No Anxiety: Yes Depression: No Heart Rhythm Problems: Yes (PALPITATIONS, TACHYCARDIA, PVC'S, PAC'S) Cancer: No Cardiac Catheterization: Yes (RT HEART CATH, PULM ANGIOGRAM,TILT TABLE TEST) Cardiovascular Problems: Yes (POTS) High Cholesterol: Yes Chemotherapy: No Chest Pain: No Congestive Heart Failure: No COPD: No Cerebrovascular Accident: No Diabetes: No Diminished Hearing: No Endocrine: Yes (ADDISONS) Gastrointestinal Disorders: Yes (GASTROPARESIS) GERD: Yes Glaucoma: No Genitourinary: Yes Headaches: No Hepatitis: No Hiatal Hernia: No Heparin Induced Thrombocytopen: No Hypertension: No Immune Disorder: Yes (LUPUS) Implanted Vascular Access Dvce: Yes Kidney Stones: No Musculoskeletal: No Neurologic: Yes Psychiatric: Yes (ANXIETY, PTSD) Reproductive: No Respiratory: No Immunizations Current: Yes Migraines: No Myocardial Infarction: No Radiation Therapy: No Renal Failure: No Seizures: No Sickle Cell Disease: No Sleep Apnea: No Thyroid Disease: Yes (HASHIMOTOS THYROIDITIS,ADDISONS DISEASE) Ulcer: Yes PNEUMOCCOCAL Vaccine (Year): 2 Menopausal: Yes : 3 Para: 3 Miscarriage: 0 : 0 Past Surgical History Abdominal Surgery: Yes ( TIMES 3) AICD: No Appendectomy: No Arteriovenous Shunt: No Body Medical Devices: partial left hip 2011 (Dr. Hobbs) Cardiac Surgery: No Section: Yes (X 3) Cholecystectomy: No Coronary Artery Bypass Graft: No Ear Surgery: No Endocrine Surgery: No Eye Surgery: No Genitourinary Surgery: No Gynecologic Surgery: Yes (PARTIAL HYSTERECTOMY) Hysterectomy: Yes Insulin Pump: No Joint Replacement: Yes (LEFT HIP) Neurologic Surgery: No Oral Surgery: Yes (TONSILLECTOMY) Pacemaker: No Thoracic Surgery: No Tonsillectomy: Yes Other Surgery: Yes Family History Family Myocardial Infarction: Yes Social History Alcohol Use: No Tobacco Use: No Substance Use: No Allergies-Medications (Allergen,Severity, Reaction): Coded Allergies: Histamine H2 Inhibitors (Verified Allergy, Severe, "PALPITATIONS", 12/16/17 ) Sulfa (Sulfonamide Antibiotics) (Verified Allergy, Severe, anaphylactic shock, 12/16/17) amoxicillin (Verified Allergy, Severe, hives, 12/16/17) citalopram (Verified Allergy, Severe, VOMITING, 12/16/17) clotrimazole (Verified Allergy, Severe, "HIVES", 12/16/17) doxycycline (Verified Allergy, Severe, HIVES, 12/16/17) duloxetine (Verified Allergy, Severe, VOMITING, 12/16/17) ferumoxytol (Verified Allergy, Severe, HIVES, 12/16/17) fluvoxamine (Verified Allergy, Severe, VOMITING, 12/16/17) iodine (Verified Allergy, Severe, Burning, 12/16/17) mirtazapine (Verified Allergy, Severe, Sedation, 12/16/17) paroxetine (Verified Allergy, Severe, VOMITING, 12/16/17) penicillin G (Verified Allergy, Severe, "HIVES", 12/16/17) povidone-iodine (Verified Allergy, Severe, Burning, 12/16/17) sertraline (Verified Allergy, Severe, VOMITING, 12/16/17) sodium iodide (Verified Allergy, Severe, Burning, 12/16/17) sodium iodide (Verified Allergy, Severe, Burning, 12/16/17) venlafaxine (Verified Allergy, Severe, VOMITING, 12/16/17) ceftriaxone (Verified Allergy, Unknown, 12/16/17) PT HAD LUMP IN HER THROAT AND PAIN IN HER ARM THAT THE iv WAS INFUSING IN potassium iodide (Verified Allergy, Unknown, Burning, 12/16/17) adenosine (Verified Adverse Reaction, Severe, "DR STATED NOT TO TAKE", ) diatrizoate meglumine (Verified Adverse Reaction, Severe, BURNING IN ALL MUCOUS MEMBRANES, 12/16/17) diclofenac (Verified Adverse Reaction, Severe, "JITTERY", 12/16/17) etodolac (Verified Adverse Reaction, Severe, "JITTERY", 12/16/17) flurbiprofen (Verified Adverse Reaction, Severe, "JITTERY", 12/16/17) gadobenic acid (Verified Adverse Reaction, Severe, BURNING IN ALL MUCOUS MEMBRANES, 12/16/17) gadodiamide (Verified Adverse Reaction, Severe, BURNING IN ALL MUCOUS MEMBRANES, 12/16/17) gadoteridol (Verified Adverse Reaction, Severe, BURNING IN ALL MUCOUS MEMBRANES, 12/16/17) ibuprofen (Verified Adverse Reaction, Severe, "JITTERY", 12/16/17) indomethacin (Verified Adverse Reaction, Severe, "JITTERY", 12/16/17) iodixanol (Verified Adverse Reaction, Severe, BURNING IN ALL MUCOUS MEMBRANES, 12/16/17) iohexol (Verified Adverse Reaction, Severe, BURNING IN ALL MUCOUS MEMBRANES, 12/16/17) ketoprofen (Verified Adverse Reaction, Severe, "JITTERY", 12/16/17) metoclopramide (Verified Adverse Reaction, Severe, "EPS", 12/16/17) naproxen (Verified Adverse Reaction, Severe, "JITTERY", 12/16/17) oxaprozin (Verified Adverse Reaction, Severe, "JITTERY", 12/16/17) prochlorperazine (Verified Adverse Reaction, Severe, "EPS", 12/16/17) promethazine (Verified Adverse Reaction, Severe, "EPS", 12/16/17) Reported Meds & Prescriptions Reported Meds & Active Scripts Active Polyethylene Glycol 3350 Powder (Polyethylene Glycol) 17 Gram Pow 17 Gm PO BID 30 Days Zofran Odt (Ondansetron Odt) 4 Mg Tab 4 Mg SL Q6HR PRN Reported Macrobid (Nitrofurantoin Monoh/Nitrofur Macro) 100 Mg Cap 100 Mg PO BID Solu-Cortef Inj (Hydrocortisone Sodium Succinate) 100 Mg/2 Ml Inj 3 Mg SQ DAILY Solu-Cortef (Hydrocortisone Sod Succinate) 100 Mg Vial 6 Mg SQ BID Florastor (Saccharomyces Boulardii) 250 Mg Cap 250 Mg PO DAILY Synthroid (Levothyroxine Sodium) 75 Mcg Tab 62.5 Mcg PO DAILY Percocet (Oxycodone-Acetaminophen) 5-325 mg Tab 1 Tab PO Q6H PRN Nexium (Esomeprazole DR) 40 Mg Capdr 40 Mg PO DAILY Vitamin D-1000 (Cholecalciferol) 1,000 Unit Tab 1,000 Units PO DAILY Fludrocortisone (Fludrocortisone Acetate) 0.1 Mg Tab 0.1 Mg PO DAILY Ativan (Lorazepam) 1 Mg Tab 1 Mg PO BID PRN Prednisone 1 Mg Tab 1 Mg PO DIRECTED Atenolol 25 Mg Tab 25 Mg PO TID Estrace Vaginal (Estradiol) 0.01% Cream 1 Appl VAGINAL HS Review of Systems Except as stated in HPI: all other systems reviewed are Neg General / Constitutional: No: Fever, Chills HENT: No: Congestion Cardiovascular: No: Chest Pain or Discomfort Respiratory: No: Shortness of Breath Gastrointestinal: Positive: Nausea, No: Vomiting, Abdominal Pain Genitourinary: Positive: Dysuria, No: Flank Pain Musculoskeletal: No: Myalgias, Arthralgias Skin: No Rash Neurologic: No: Weakness, Dizziness, Syncope Psychiatric: No: Anxiety Hematologic/Lymphatic: No: Easy Bruising Physical Exam Narrative GENERAL: Well-developed well-nourished female no acute distress no respiratory distress SKIN: Warm and dry. HEAD: Normocephalic. EYES: No scleral icterus. No injection or drainage. NECK: Supple, trachea midline. No JVD or lymphadenopathy. CARDIOVASCULAR: Regular rate and rhythm without murmurs, gallops, or rubs. RESPIRATORY: Breath sounds equal bilaterally. No accessory muscle use. GASTROINTESTINAL: Abdomen soft, reproducible suprapubic tenderness to palpation without guarding or rebound, nondistended. MUSCULOSKELETAL: No cyanosis, or edema. BACK: Nontender without obvious deformity. No CVA tenderness. Data Data Last Documented VS Vital Signs Date Time Temp Pulse Resp B/P (MAP) Pulse Ox O2 Delivery O2 Flow Rate FiO2 12/15/17 20:52 97.6 72 16 147/68 (94) 98 Orders Orders Complete Blood Count With Diff (12/15/17 21:28) Comprehensive Metabolic Panel (12/15/17 21:28) Lipase (12/15/17 21:28) Urinalysis - C+S If Indicated (12/15/17 21:28) Ct Abd/Pel W/O Iv Contrast (12/15/17 21:28) Iv Access Insert/Monitor (12/15/17 21:28) Ecg Monitoring (12/15/17 21:28) Oximetry (12/15/17 21:28) Sodium Chloride 0.9% Flush (Ns Flush) (12/15/17 21:30) Sodium Chlor 0.9% 1000 Ml Inj (Ns 1000 M (12/15/17 21:30) Morphine Inj (Morphine Inj) (12/15/17 21:30) Urine Culture (12/15/17 21:54) Ceftriaxone Inj (Rocephin Inj) (12/15/17 23:45) Admit Order (Ed Use Only) (12/16/17 ) Psychological Anthropologist / Telemetry [id number] (12/16/17 00:10) Activity Oob With Assistance (12/16/17 00:10) Notify Dr: Other (12/16/17 00:10) Hydrocortisone Inj (Solucortef Inj) (12/16/17 00:15) Labs Laboratory Tests Test 12/15/17 21:54 White Blood Count 8.7 TH/MM3 Red Blood Count 5.94 MIL/MM3 Hemoglobin 12.1 GM/DL Hematocrit 39.5 % Mean Corpuscular Volume 66.5 FL Mean Corpuscular Hemoglobin 20.4 PG Mean Corpuscular Hemoglobin Concent 30.7 % Red Cell Distribution Width 16.5 % Platelet Count 168 TH/MM3 Mean Platelet Volume 11.8 FL Neutrophils (%) (Auto) 81.6 % Lymphocytes (%) (Auto) 13.8 % Monocytes (%) (Auto) 3.5 % Eosinophils (%) (Auto) 0.4 % Basophils (%) (Auto) 0.7 % Neutrophils # (Auto) 7.1 TH/MM3 Lymphocytes # (Auto) 1.2 TH/MM3 Monocytes # (Auto) 0.3 TH/MM3 Eosinophils # (Auto) 0.0 TH/MM3 Basophils # (Auto) 0.1 TH/MM3 CBC Comment DIFF FINAL Differential Comment Urine Color DARK-YELLOW Urine Turbidity CLEAR Urine pH 7.0 Urine Specific [place] 1.003 Urine Protein NEG mg/dL Urine Glucose (UA) NEG mg/dL Urine Ketones NEG mg/dL Urine Occult Blood TRACE Urine Nitrite POS Urine Bilirubin NEG Urine Urobilinogen LESS THAN 2.0 MG/DL Urine Leukocyte Esterase LARGE Urine WBC 11 /hpf Urine Squamous Epithelial Cells 2 /hpf Urine Bacteria FEW /hpf Urine Hyaline Casts 2 /lpf Microscopic Urinalysis Comment CULTURE INDICATED Blood Urea Nitrogen 15 MG/DL Creatinine 0.75 MG/DL Random Glucose 94 MG/DL Total Protein 7.4 GM/DL Albumin 4.0 GM/DL Calcium Level 9.4 MG/DL Alkaline Phosphatase 53 U/L Aspartate Amino Transf (AST/SGOT) 20 U/L Alanine Aminotransferase (ALT/SGPT) 22 U/L Total Bilirubin 0.4 MG/DL Sodium Level 141 MEQ/L Potassium Level 3.8 MEQ/L Chloride Level 105 MEQ/L Carbon Dioxide Level 26.5 MEQ/L Anion Gap 10 MEQ/L Estimat Glomerular Filtration Rate 80 ML/MIN Lipase 159 U/L MDM Medical Decision Making Medical Screen Exam Complete: Yes Emergency Medical Condition: Yes Medical Record Reviewed: Yes Interpretation(s) UA nitrites leukocytosis WBCs few bacteria culture indicated Last Impressions Abdomen/Pelvis CT 12/15/172127 Signed Impressions: CONCLUSION: Miniscule nonobstructing right kidney stones. CBC & BMP Diagram 12/15/17 21:54 Total Protein 7.4, Albumin 4.0, Calcium Level 9.4, Alkaline Phosphatase 53, Aspartate Amino Transf (AST/SGOT) 20, Alanine Aminotransferase (ALT/SGPT) 22, Total Bilirubin 0.4 Vital Signs Date Time Temp Pulse Resp B/P (MAP) Pulse Ox O2 Delivery O2 Flow Rate FiO2 12/15/17 20:52 97.6 72 16 147/68 (94) 98 Differential Diagnosis UTI, pyelonephritis, diverticulitis, renal colic, dehydration,sirs, sepsis, Burke's crisis Narrative Course IV access obtained specimens collections of resulting fluid bolus administered patient given morphine sulfate 2 mg IV has taken oral Zofran just prior to arrival to the emergency department; CT abdomen pelvis noncontrast ordered Patient given additional fluids reports pain resolved after morphine [address] abdomen pelvis reveals no acute process no obstructive process patient has small minuscule stones in the right kidney. This information is shared with the patient as well as abnormal urinalysis. Recommendation and plan is to give patient a dose of Rocephin 1 g IV piggyback; patient's case discussed with her primary care provider Dr. Duron who concurs with Rocephin and then follow-up in the office this week. Shortly after starting infusion of Rocephin patient reported to nurse that she felt funny the medicine was immediately stopped nurse reports less than 10 cc of the medication was administered patient did not complain of pruritus or erythema or rash but did complain of feeling funny at the infusion site and tightness in her throat. Rocephin was discontinued patient was given Solu- Cortef 40 mg IV and she states she tolerates this without any adverse reaction call was placed to her managing physician primary care provider Dr. Duron plan is now to admit patient to observation with ongoing Macrobid administration and monitoring for adverse medication reaction/allergic reaction. Physician Communication Physician Communication discussed with Dr Duron Diagnosis Primary Impression: UTI (urinary tract infection) Additional Impression: Adverse drug reaction Referrals: Andres Duron MD 1 day Patient Instructions: General Instructions Additional Instructions: Increase fluid hydration Complete course of Macrobid Follow-up with Dr. Duron call office in a.m. Return to the emergency department for any concerns or change in condition Take acetaminophen as tolerated for fever 100.4F or greater Disposition: 01 DISCHARGE HOME Condition: Stable Darcy Perez MD Dec 15, 2017 21:39
[2017-12-15 22:04] LABS: AUTOMATED NEUTROPHIL # 7.1 TH/MM3 (1.8-7.7); BASOPHIL # 0.1 TH/MM3 (0-0.2); BASOPHIL % 0.7 % (0.0-2.0); EOSINOPHIL % 0.4 % (0.0-4.0); HEMATOCRIT 39.5 % (35.0-46.0); HEMOGLOBIN 12.1 GM/DL (11.6-15.3); LYMPH % 13.8 % (9.0-44.0); LYMPHOCYTE # 1.2 TH/MM3 (1.0-4.8); MEAN CELL VOLUME 66.5 FL (80.0-100.0); MEAN CORPUSCULAR HEMOGLOBIN 20.4 PG (27.0-34.0); MEAN CORPUSCULAR HGB CONC 30.7 % (32.0-36.0); MEAN PLATELET VOLUME 11.8 FL (7.0-11.0); MONO % 3.5 % (0.0-8.0); MONOCYTE # 0.3 TH/MM3 (0-0.9); NEUT % 81.6 % (16.0-70.0); PLATELET COUNT 168 TH/MM3 (150-450); RED BLOOD COUNT 5.94 MIL/MM3 (4.00-5.30); RED CELL DISTRIBUTION WIDTH 16.5 % (11.6-17.2); WHITE BLOOD COUNT 8.7 TH/MM3 (4.0-11.0)
[2017-12-15 22:12] LABS: BACTERIA, URINE FEW /hpf; BILIRUBIN, URINE NEG (NEG); BLOOD, URINE TRACE (NEG); GLUCOSE,URINE NEG (NEG); HYALINE CAST, URINE 2 /lpf (RARE); KETONE, URINE NEG (NEG); NITRITE,URINE POS (NEG); SQUAMOUS EPITHELIAL CELL URINE 2 /hpf (0-5); URINE COLOR DARK-YELLOW (YELLW/STRAW); URINE LEUKOCYTE ESTERASE LARGE (NEG)
[2017-12-15 22:23] LABS: ALT (GPT) 22 U/L (10-53)
[2017-12-15 22:26] LABS: ALKALINE PHOSPHATASE 53 U/L (45-117); TOTAL BILIRUBIN ADULT 0.4 MG/DL (0.2-1.0); TOTAL PROTEIN 7.4 GM/DL (6.4-8.2)
[2017-12-15 22:28] LABS: AST (GOT) 20 U/L (15-37); BICARBONATE 26.5 MEQ/L (21.0-32.0); BLOOD UREA NITROGEN 15 MG/DL (7-18); CALCIUM 9.4 MG/DL (8.5-10.1); CHLORIDE 105 MEQ/L (98-107); CREATININE 0.75 MG/DL (0.50-1.00); GLOMERULAR FILTRATION RATE 80 ML/MIN (>89); GLUCOSE,RANDOM 94 MG/DL (74-106); SODIUM (NA) 141 MEQ/L (136-145)
--- NOTE | 2017-12-15 22:54 | RADRPT ---
EXAM DATE: 12/15/2017 10:42 PM EDT AGE/SEX: 57 years / Female INDICATIONS: Urinary frequency and dysuria. CLINICAL DATA: This is the patient's initial encounter. Patient reports that signs and symptoms have been present for 1 day and indicates a pain score of 8/10. MEDICAL/SURGICAL HISTORY: Gastroparesis. Lupus. Gastroesophageal reflux disease. Ulcers. Ane ciara. Hysterectomy. RADIATION DOSE: 4.04 CTDI (mGy) COMPARISON: [facility] [place], CT ABDOMEN & PELVIS W/O CONTRAST, 10/14/2017. . TECHNIQUE: Multiple contiguous axial images were obtained through the abdomen. Images were obtained using multiple row detector helical technique. Using dose reduction techniques, radiation dose was ke pt as low as reasonably achievable to obtain optimal diagnostic quality images. FINDINGS: Lower Lungs: The visualized lower lungs are clear. Liver: Visualized portions grossly unremarkable. Spleen: Visualized portions grossly unremarkable. Pancreas: Unremarkable without mass or calcification. Kidneys: Miniscule nonobstructing stones in the mid and lower pole collecting system of the right ki dney. No evidence of ureteral stone or hydronephrosis. Left kidney is unremarkable. Adrenal Glands: Unremarkable. Aorta: The aorta and proximal iliac vessels are grossly unremarkable without aneurysmal dilation. Bowel/Mesentery: The bowel loops are grossly unremarkable. The cecum and sigmoid colon have a normal configuration. Abdominal Wall: Intact. Retroperitoneum: No evidence of adenopathy in the retrocrural, para-aortic, or deep pelvic regions. Bladder: Contours are smooth. Reproductive Organs: Uterus surgically absent. No evidence of pelvic mass or free fluid. Inguinal: The inguinal region is unremarkable without evidence of adenopathy. Bony Structures: Left total hip arthroplasty. CONCLUSION: Miniscule nonobstructing right kidney stones. Electronically signed by: Salvador Cedeno MD 12/15/2017 10:53 PM EDT
[2017-12-15] MEDS ORDERED: cefTRIAXone INJ 1,000 MG in SODIUM CHLORIDE 0.9% INJ 100 ML IV ONE (23:45)
[2017-12-16] VITALS (12 sets, daily range): BP systolic 100–159; BP diastolic 50–86; PULSE 62–76; RESP 15–20; TEMP 97.4–98.9; O2SAT 96–99
[2017-12-16] MEDS ORDERED: HYDROCORTISONE SOD SUCCINATE 100 MG VIAL IV PUSH ONE ×2 (00:15→06:00)
[2017-12-16] MEDS ORDERED: GENTAMICIN 80 MG PREMIX 100 ML IV SCH (00:30)
[2017-12-16] MEDS ORDERED: NALOXONE HCL 0.4 MG/ML AMP IV PUSH PRN (00:30)
[2017-12-16] MEDS ORDERED: ONDANSETRON HCL 4 MG/2 ML VIAL IVP PRN (00:30)
[2017-12-16] MEDS ORDERED: SODIUM CHLOR 0.9% 1000 ML INJ 1,000 ML IV SCH (00:30)
[2017-12-16] MEDS ORDERED: SODIUM CHLORIDE 0.9% FLUSH 10 ML FLUSH IV FLUSH PRN (00:30)
[2017-12-16] MEDS: MORPHINE SULFATE 4 MG/ML INJ IM PRN ×3 (02:22→21:47)
[2017-12-16] MEDS: LORazepam 1 MG TAB PO PRN ×2 (03:51→21:11)
[2017-12-16] MEDS: ATENOLOL 25 MG TAB PO SCH ×3 (06:26→18:00)
[2017-12-16] MEDS: ONDANSETRON ODT 4 MG TAB PO PRN ×3 (06:39→21:11)
[2017-12-16] MEDS: SODIUM CHLORIDE 0.9% FLUSH 10 ML FLUSH IV FLUSH SCH ×2 (09:00→21:00)
[2017-12-16] MEDS ORDERED: LEVOTHYROXINE SODIUM 125 MCG TAB PO ONE (09:15)
[2017-12-16] MEDS: NS + KCL 20 MEQ INJ 1,000 ML IV SCH ×2 (10:22→22:40)
[2017-12-16] MEDS: FLUDROCORTISONE ACETATE 0.1 MG TAB PO SCH (10:22)
[2017-12-16] MEDS: POLYETHYLENE GLYCOL 17 GM PKG PO SCH ×2 (10:22→21:00)
[2017-12-16] MEDS: PANTOPRAZOLE SOD 40 MG DELAYED RELEASE TAB PO SCH (10:22)
[2017-12-16] MEDS: ACETAMINOPHEN 325 MG TAB PO PRN ×2 (10:34→21:11)
[2017-12-16] MEDS ORDERED: GENTAMICIN INJ 80 MG in SODIUM CHLORIDE 0.9% INJ 100 ML IV SCH (12:00)
[2017-12-16] MEDS ORDERED: AZITHROMYCIN INJ 250 MG in SODIUM CHLOR 0.9% 250 ML INJ 250 ML IV ONE (12:00)
[2017-12-16] MEDS ORDERED: HYDROCORTISONE SOD SUCCINATE 100 MG VIAL IV ONE ×2 (14:00→22:15)
[2017-12-16] MEDS ORDERED: GENTAMICIN SULFATE 80 MG/2 ML VIAL IM ONE (15:00)
[2017-12-16] MEDS ORDERED: GENTAMICIN INJ 80 MG in SODIUM CHLORIDE 0.9% INJ 100 ML IV ONE (15:00)
--- NOTE | 2017-12-16 17:50 | HHI.FF ---
Face to Face Verification Diagnosis: (1) UTI (urinary tract infection) (2) Addisons disease (3) POTS (postural orthostatic tachycardia syndrome) (4) Nausea (5) Gastroparesis Home Health Nursing Order: Signs/symptoms of disease process Nursing assessment with vital signs IV medication administration I have seen patient Jennifer Raines on 12/16/17. My clinical findings support the need for the requested home health care services because: Ltd mobility - disease progression Injectable med education/admin I certify that my clinical findings support that this patient is homebound because: Unsteady gait/balance Unsafe to leave home unassisted Unable to use public transportation Andres Duron MD Dec 16, 2017 17:50
[2017-12-16] MEDS ORDERED: BISACODYL 10 MG SUPP RECTAL ONE (22:15)
[2017-12-17] MEDS: MORPHINE SULFATE 4 MG/ML INJ IM PRN ×2 (02:08→12:34)
[2017-12-17 04:44] VITALS: BP 114/55; PULSE 61; RESP 18; TEMP 97.5; O2SAT 98
[2017-12-17] MEDS ORDERED: HYDROCORTISONE SOD SUCCINATE 100 MG VIAL IV ONE (07:00)
[2017-12-17 07:24] VITALS: PULSE 61
[2017-12-17 08:24] VITALS: BP 107/60; PULSE 68; RESP 20; TEMP 97.9; O2SAT 96
[2017-12-17] MEDS: PANTOPRAZOLE SOD 40 MG DELAYED RELEASE TAB PO SCH (09:11)
[2017-12-17] MEDS: ATENOLOL 25 MG TAB PO SCH ×2 (09:11→12:33)
[2017-12-17] MEDS: FLUDROCORTISONE ACETATE 0.1 MG TAB PO SCH (09:12)
[2017-12-17] MEDS: SODIUM CHLORIDE 0.9% FLUSH 10 ML FLUSH IV FLUSH SCH (09:12)
[2017-12-17] MEDS: POLYETHYLENE GLYCOL 17 GM PKG PO SCH (09:12)
--- NOTE | 2017-12-17 10:47 | MH ---
cc: Andres Duron MD DATE OF ADMISSION: 12/16/2017 ADMITTING DIAGNOSIS: Urinary tract infection, adverse reaction to medication. HISTORY OF PRESENT ILLNESS: This 57-year-old white female with a complex medical history including Collingsworth's disease, postural orthostatic tachycardia syndrome, gastroparesis and multiple autoimmune disorders contacted the undersigned physician on the evening prior to admission complaining of dysuria and some pelvic discomfort which started earlier in the day. It had worsened to the point the patient stated it was severe. She had a prescription for Macrobid at home, which she was instructed to begin and she also had Pyridium which she started to use. The patient states that the pain persisted and she was concerned that she was passing a kidney stone, so she came to the emergency department. The patient does have Collingsworth's disease and anytime she has severe pain or illness, she needs a higher dose of her corticosteroid replacement. She did give herself an additional dosage of corticosteroids prior to coming to the emergency department. She reports nausea, but this is a chronic issue due to her gastroparesis. The patient, however, states it is worse than her baseline. She had no emesis. Her bowels have been moving well. She had no definite dysuria. She has had no fever, chills, night sweats, back pain. She did have lower abdominal pain. The patient denies any shortness of breath, cough, sputum production, lightheadedness, dizziness, chest pain, palpitations, lightheadedness, dizziness, orthopnea or PND. In the emergency department, the patient was given IV fluids. A urinalysis was obtained. PAST MEDICAL HISTORY: Her past medical history is extensive and includes Collingsworth's disease, gastroparesis, postural orthostatic tachycardia, syndrome due to autonomic dysfunction. She is positive for lupus anticoagulant antibodies. 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 She is positive for Sjogren's antibody and a positive JAZMIN. She has a history of PTSD, anxiety with panic disorder, hyperlipidemia. She has had a remote history of idiopathic thrombocytopenic purpura. She has a history of severe osteoporosis. She is status post a T7 compression fracture in 2011. She has Raynaud's phenomenon. She has beta thalassemia minor. She is status post left hip fracture with subsequent total hip replacement in 2011. She has a chronic limb length discrepancy with the left leg shorter than the right. She has a history of a kidney stone in 2013, and she had a right humerus fracture in 2014. She is status post hysterectomy in 2000, status post 3 previous sections and she had the above-mentioned left total hip replacement due to fracture in 2011. CURRENT MEDICATIONS: 1. Azithromycin suspension 200 mg/5 mL, 5 mL every other day. 2. Pyridium 100 mg 3 times a day as needed for dysuria. 3. Potassium chloride ER 10 mEq twice daily. 4. Fludrocortisone 0.1 mg daily. 5. Colace 100 mg daily as needed for constipation. 6. Nexium 40 mg daily. 7. Synthroid 137 mcg 1/2 tablet for 10 days. 8. Synthroid 0.125 mg 1/2 tablet 3 days a week. 9. Ondansetron 4 mg dissolving tablet, 1 under the tongue every 8 hours as needed for nausea. 10. Estrace vaginal cream 0.1 mg/gram apply one-half gram twice weekly intravaginally. 11. She is currently taking prednisone 1 mg 1 tablet in the morning and 1 tablet later in the day. 12. She also was receiving subcutaneous Solu-Cortef, which is currently being adjusted in the dosage she receives. 13. Atenolol 25 mg 1 tablet 3 times a day. 14. Lorazepam 1 mg one-half to 1 tablet up to 3 times a day as needed. 15. Vitamin D 2000 international units daily. 16. Fluticasone nasal spray 2 sprays in each nostril once a day. 17. Enteric-coated aspirin 81 mg twice weekly. 18. Oxycodone/acetaminophen 5/325 mg 1 tablet every 6 hours as needed for pain. 19. MiraLax 17 g in 8 ounces of liquid twice a day. ALLERGIES: COMPAZINE, IV CONTRAST, SULFA, PENICILLIN, NSAIDS, H2 BLOCKERS, ADENOSINE, AMOXICILLIN, IODINE, PHENERGAN AND REGLAN. FAMILY HISTORY: Noncontributory. SOCIAL HISTORY: She is . She is disabled due to her multiple medical problems. She lives with her significant other. She does not smoke nor does she drink alcohol. REVIEW OF SYSTEMS: Negative except as outlined above. PHYSICAL EXAM: VITAL SIGNS: Upon arrival to the emergency department, the patient's blood pressure is 147/68 with a heart rate of 72, respirations 16, temperature 97.6 degrees Fahrenheit, oxygen saturation on room air was 98%. GENERAL: This is a well-nourished, well-developed, middle-aged, white female in moderate distress due to abdominal discomfort. HEENT: Pupils equal, round, reactive to light. Extraocular movements are intact. Sclerae are anicteric. Conjunctivae pink. Mouth and throat reveal moist mucous membranes. No erythema or exudates. Dentition is good. NECK: Supple without lymphadenopathy, JVD, bruits or thyromegaly. CARDIOVASCULAR: Showed regular rate and rhythm without murmurs, rubs or gallops. LUNGS: Clear to auscultation without wheezes, rhonchi or rales. ABDOMEN: Revealed some discomfort to palpation in the bilateral lower quadrants and in the suprapubic area, but no guarding or rebound. The abdomen is obese, soft, mildly distended without masses. No HSM. No CVAT. Bowel sounds are present. LOWER EXTREMITIES: Reveal no appreciable edema. No calf tenderness. No Homans sign. NEUROLOGIC: Nonfocal. SKIN: Warm and dry. LABORATORY DATA: The white blood cell count was 8.7, hemoglobin 12.1, hematocrit 39.5, platelet count was 168,000. Comprehensive metabolic profile was within normal limits. Urinalysis revealed a specific gravity 1.003, pH 7.0, trace occult blood, positive for nitrites, large amount of leukocyte esterase, 11 WBCs per high power field, few bacteria. Culture is pending. A CT scan of the abdomen and pelvis revealed miniscule nonobstructing right kidney stones. IMPRESSION AND PLAN: 1. This 57-year-old white female who presents with a likely urinary tract infection with severe lower abdominal pain. In the emergency department, she was given Rocephin, but when receiving just a minute or two of the IV infusion, she states that she had tightness in her throat and discomfort in her arms. The infusion was stopped. The patient was given an additional dose of IV steroids. She will be kept overnight to monitor for possible drug reaction. In the meantime, she will be placed on gentamicin IV to cover for the urinary tract infection. Culture is pending. The patient did receive morphine sulfate in the emergency department, which alleviated her pain. We will provide her with some morphine as needed to help with the lower abdominal and pelvic pain until the antibiotics can begin to work. We will place her on IV fluids and monitor her closely. 2. Collingsworth's disease. The patient will be placed on IV doses of Solu-Cortef in a stress dose level in order to prevent Addisonian crisis. 3. Postural orthostatic tachycardia syndrome. Continue with atenolol. Monitor heart rate and blood pressure. 4. Hypothyroidism. Continue with usual dosage of levothyroxine. 5. Gastroparesis. The patient is reporting worsening nausea than usual. She has received the Zofran ODT with some improvement. We will provide her with an IV dose of azithromycin as she is due for her usual dose today. The plan at this point is to monitor the patient for her level of pain, any additional drug reactions and her level of nausea and based on her response to therapeutic interventions, we will decide whether she can go home later today or if an additional day of observation will be necessary. I have explained the plan to the patient and her significant other, both expressed understanding and are in agreement. Andres Duron MD JRM/DL , 10:03 AM , 10:46 AM
--- NOTE | 2017-12-17 10:53 | HHI.PR ---
Subjective Remarks Feeling better. Pain has resolved. No chest pain, abdominal pain, nausea. Bowels moving. Current Medications Medications (Trade) Dose Ordered Sig/Anneliese Route Start Time Stop Time Status Last Admin (NS Flush) 2 ml UNSCH PRN IV FLUSH 12/16/17 00:30 (NS Flush) 2 ml BID IV FLUSH 12/16/17 09:00 (Narcan Inj) 0.4 mg UNSCH PRN IV PUSH 12/16/17 00:30 (Morphine Inj) 2 mg Q3H PRN IM 12/16/17 00:45 12/17/17 02:08 (Tenormin) 25 mg TID PO 12/16/17 09:00 (Florinef) 0.1 mg DAILY PO 12/16/17 09:00 12/17/17 09:12 (Ativan) 1 mg BID PRN PO 12/16/17 00:30 12/16/17 21:11 (Miralax) 17 gm BID PO 12/16/17 09:00 12/17/17 09:12 (Protonix) 40 mg DAILY PO 12/16/17 09:00 12/17/17 09:11 (Zofran Odt) 4 mg Q6H PRN PO 12/16/17 01:00 12/16/17 21:11 Potassium Chloride/Sodium Chloride 1,000 ml @ 84 mls/hr [id number] IV 12/16/17 09:15 12/16/17 22:40 (Tylenol) 650 mg Q4H PRN PO 12/16/17 09:30 12/16/17 21:11 Objective Vital Signs Date Time Temp Pulse Resp B/P (MAP) Pulse Ox O2 Delivery O2 Flow Rate FiO2 12/17/17 08:24 97.9 68 20 107/60 (76) 96 12/17/17 07:24 61 12/17/17 04:44 97.5 61 18 114/55 (74) 98 12/16/17 23:10 97.4 65 18 100/50 (67) 97 12/16/17 22:10 18 12/16/17 22:10 18 12/16/17 19:31 98.4 72 18 111/59 (76) 97 12/16/17 16:56 98.1 62 20 115/61 (79) 97 12/16/17 15:45 75 12/16/17 12:36 97.4 75 16 110/58 (75) 98 12/16/17 12:00 71 I/O 12/16/17 12/16/17 12/16/17 12/17/17 12/17/17 12/17/17 07:00 15:00 23:00 07:00 15:00 23:00 Intake Total 1303 ml 132 ml 100 ml 400 ml Output Total 550 ml Balance 1303 ml 132 ml -450 ml 400 ml Intake Oral 300 ml 400 ml IV Total 1003 ml 132 ml 100 ml Output Urine Total 550 ml # Bowel Movements 0 CV: RRR Lungs: CTA Abd: soft, NT, ND. +BS Ext: No edema Result Diagram: 12/15/17215312/15/172153 Assessment and Plan Problem List: (1) UTI (urinary tract infection) ICD Codes: N39.0 - Urinary tract infection, site not specified Status: Acute Plan: Urine culture reveals Gram Positive matthias. Likely contaminant. Patient had taken oral antibiotics prior to coming to ED. Will complete 5 days of Gentamicin IM at home. (2) Addisons disease ICD Codes: E27.1 - Primary adrenocortical insufficiency Status: Chronic Plan: Patient has received stress doses steroids while hospitalized. She will wean steroids at home back to physiologic dose (3) Gastroparesis ICD Codes: K31.84 - Gastroparesis Status: Chronic Plan: Nausea better. Cont Azithromycin (4) POTS (postural orthostatic tachycardia syndrome) ICD Codes: R00.0 - Tachycardia, unspecified; I95.1 - Orthostatic hypotension Status: Chronic Plan: Controlled with Atenolol (5) Hypothyroidism ICD Codes: E03.9 - Hypothyroidism, unspecified Status: Chronic Plan: Cont Synthroid (6) Dysautonomia ICD Codes: G90.9 - Disorder of the autonomic nervous system, unspecified Status: Chronic Plan: Cont Florinef Discharge Planning Home today Problem Qualifiers (1) UTI (urinary tract infection): (2) Hypothyroidism: Qualified Codes: E03.8 - Other specified hypothyroidism; E06.3 - Autoimmune thyroiditis Andres Duron MD Dec 17, 2017 10:53
[2017-12-17] MEDS ORDERED: GENT80I IM (10:58)
[2017-12-17] MEDS ORDERED: GENTAMICIN/SOD CHL 80 MG/100 ML IV ONE ×2 (11:00→13:00)
[2017-12-17] MEDS: ONDANSETRON ODT 4 MG TAB PO PRN (12:33)
[2017-12-17] MEDS ORDERED: GENTAMICIN INJ 80 MG in SODIUM CHLORIDE 0.9% INJ 100 ML IV ONE (13:00)
[2017-12-17 13:13] LABS: BICARBONATE 25.9 MEQ/L (21.0-32.0); CALCIUM 8.3 MG/DL (8.5-10.1); CREATININE 0.68 MG/DL (0.50-1.00)
== END 2017-12-17 15:04 | disposition home or self-care (01) ==
LOC: NEPC 20:42 → NEDA 12-16 00:12 → NEPHCDU 12-16 01:19
PROVIDERS: ADMIT Family Medicine; ATTEND Family Medicine
DX: N39.0 Urinary tract infection, site not specified (principal); B95.62 Methicillin resistant Staphylococcus aureus infection as the cause of diseases classified elsewhere; E27.1 Primary adrenocortical insufficiency; K31.84 Gastroparesis; I49.8 Other specified cardiac arrhythmias; Z87.440 Personal history of urinary (tract) infections; Z86.11 Personal history of tuberculosis; M79.7 Fibromyalgia; N20.0 Calculus of kidney; D56.3 Thalassemia minor; Z79.01 Long term (current) use of anticoagulants; M35.00 Sjogren syndrome, unspecified; G90.9 Disorder of the autonomic nervous system, unspecified; F41.9 Anxiety disorder, unspecified; R00.2 Palpitations; I49.3 Ventricular premature depolarization; E78.00 Pure hypercholesterolemia, unspecified; K21.9 Gastro-esophageal reflux disease without esophagitis; F43.10 Post-traumatic stress disorder, unspecified; M32.9 Systemic lupus erythematosus, unspecified; E06.3 Autoimmune thyroiditis; Z90.710 Acquired absence of both cervix and uterus; Z79.899 Other long term (current) drug therapy; R00.0 Tachycardia, unspecified; E03.9 Hypothyroidism, unspecified
CPT/HCPCS: 74176; 80048; 80053; 81001; 83690; 85025; 87086; 96361; 96365; 96366; 96372; 96375; 96376; 99285; G0378; J0456; J0696; J1580; J1720; J2270; J3480; J7030; J7050

== ENCOUNTER 2018-05-28 04:19 | Observation (INO) ==
[2018-05-28] MEDS ORDERED: Morphine Sulfate Inj 2 MG/ML Vial IV.PUSH ONE (05:20)
[2018-05-28] MEDS ORDERED: Hydrocortisone Sod Succinate 100 MG Vial IV.PUSH ONE ×2 (05:20→18:00)
[2018-05-28] MEDS ORDERED: Sod Chloride 0.9% Inj 1,000 ML IV.SIG ONE (05:20)
[2018-05-28 05:33] LABS: Baso # (Auto) 0.1 th/mm3 (0.0-0.2); Baso % (Auto) 0.9 % (0.0-2.0); Eos % (Auto) 0.3 % (0.0-4.0); Hematocrit 36.3 % (35.0-46.0); Hemoglobin 11.4 gm/dL (11.6-15.3); Lymph # (Auto) 2.1 th/mm3 (1.0-4.8); Lymph % (Auto) 25.6 % (9.0-44.0); Mean Corpuscular HGB Conc 31.5 % (32.0-36.0); Mean Corpuscular Hemoglobin 21.5 pg (27.0-34.0); Mean Corpuscular Volume 68.2 fL (80.0-100.0); Mean Platelet Volume 11.9 fL (7.0-11.0); Mono # (Auto) 0.5 th/mm3 (0.0-0.9); Mono % (Auto) 5.5 % (0.0-8.0); Neut # (Auto) 5.7 th/mm3 (1.8-7.7); Neut % (Auto) 67.7 % (16.0-70.0); Platelet Count 139 th/mm3 (150-450); Red Blood Count 5.32 mil/mm3 (4.00-5.30); Red Cell Distribution Width 15.6 % (11.6-17.2); White Blood Count 8.3 th/mm3 (4.0-11.0)
[2018-05-28 05:57] LABS: Alanine Aminotransferase 25 U/L (10-53); Albumin 3.5 g/dL (3.4-5.0); Anion Gap 6 meq/L (5-15); Aspartate Aminotransferase 20 U/L (15-37); Blood Urea Nitrogen 16 mg/dL (7-18); Calcium 8.9 mg/dL (8.5-10.1); Carbon Dioxide 28.7 meq/L (21.0-32.0); Chloride 104 meq/L (98-107); Glomerular Filtration Rate 67 mL/min (>89); Glucose,Random 94 mg/dL (74-106); Lipase 156 U/L (73-393); Magnesium 2.3 mg/dL (1.5-2.5); Potassium 3.6 meq/L (3.5-5.1); Sodium 139 meq/L (136-145)
[2018-05-28 06:02] LABS: Alkaline Phosphatase 56 U/L (45-117); Total Protein 6.8 g/dL (6.4-8.2)
--- NOTE | 2018-05-28 06:10 | CT ---
EXAM DATE: 05/28/2018 5:39 AM EST AGE/SEX: 58 years / Female INDICATIONS: Epigastric Pain, nausea, vomiting, and diarrhea. CLINICAL DATA: This is the patient's initial encounter. Patient reports that signs and symptoms have been present for 1 day and indicates a pain score of 9/10. MEDICAL/SURGICAL HISTORY: Lupus. Hysterectomy. section. Left hip replacement. RADIATION DOSE: 6.64 CTDI (mGy) COMPARISON: POI, CT ABDOMEN AND PELVIS W/O CONTRAST, 03/23/2018. . TECHNIQUE: Multiple contiguous axial images were obtained through the abdomen. Images were obtained using multiple row detector helical technique. Using automated exposure control and adjustment of the mA and/or kV according to patient size, radiation dose was kept as low as reasonably achievable to o btain optimal diagnostic quality images. DICOM format image data is available electronically for rev iew and comparison. FINDINGS: Minimal dependent atelectasis in the lungs. Probable pericardial cyst on the right previously describ ed. No acute findings in the liver, spleen, adrenals, kidneys or pancreas. No calcified gallstones or regan iary ductal dilatation. Tiny nonobstructing calculi lower pole right kidney. There is no free air or free fluid. No adenopathy. Previous left hip replacement. Mild scoliosis. Rig ht common iliac artery mildly prominent in size, stable. CONCLUSION: 1. No acute findings. Tiny nonobstructing calculi in the right kidney. Electronically signed by: Tal Glynn MD 05/28/2018 6:08 AM EST
--- NOTE | 2018-05-28 06:36 | ED ---
HPI General Chief complaint: Nausea/Vomiting/Diarrhea Stated complaint: Chest pressure/N/V/D Time Seen by Provider: 05/28/18 04:49 Source: patient Mode of arrival: ambulatory Limitations: no limitations History of Present Illness HPI narrative: 58-year-old female came to the emergency room with her complaining of epigastric pain, nausea, just not feeling well for past 12 hours. Patient told me that she has history of gastroparesis but usually when she has episode of gastroparesis it does not last this long. She was concerned that this could be her heart or something else going on. Patient had a stress test 3 years back which was eventually resulted as negative. Patient also has multiple medical conditions including Jeramy's disease, Neel's thyroiditis , Howell disease etc. for which she is seeing different subspecialist. Patient told me that she is due for her next steroid dose and her field tech has recommended that the circumstance that she could get stress dose hydrocortisone but it should only be 50 mg a history of 100 mg since 100 mg makes her very sick. No history of shortness of breath or syncopal episode. Related Data Home Medications Medication Instructions Recorded Confirmed Florestor 1 dose PO DAILY 01/08/18 05/28/18 Florinef 0.1 mg PO DAILY 01/08/18 05/28/18 Thc 1 inhalation DAILY 01/08/18 05/28/18 azithromycin 200 mg PO DAILY 01/08/18 05/28/18 cholecalciferol (vitamin D3) 2,000 unit PO DAILY 01/08/18 05/28/18 [Vitamin D3] esomeprazole magnesium [Nexium] 40 mg PO DAILY 01/08/18 05/28/18 estradiol [Estrace] 2 g VAGINAL DIRECTED 01/08/18 05/28/18 levothyroxine [Synthroid] 62.5 mcg PO DIRECTED 01/08/18 05/28/18 ondansetron HCl [Zofran] 4 mg PO DAILY 01/08/18 05/28/18 prasterone (dhea) [DHEA] 6.25 mg PO DAILY 01/08/18 05/28/18 prednisone 1 mg PO DIRECTED 01/08/18 05/28/18 Bifidobacterium infantis [Align] 4 mg PO DAILY 04/17/18 05/28/18 d-mannose 500 mg PO DAILY 04/17/18 05/28/18 folic acid 0.4 mg PO DAILY 04/17/18 05/28/18 polyethylene glycol 3350 [Miralax] 17 g PO DAILY 04/17/18 05/28/18 Previous Rx's Medication Instructions Recorded atenolol 25 mg PO TID tab 05/29/18 lorazepam 1 mg PO Q8HR PRN tab 05/29/18 Allergies Allergy/AdvReac Type Severity Reaction Status Date / Time amoxicillin Allergy Severe hives Verified 05/28/18 04:26 citalopram Allergy Severe VOMITING Verified 05/28/18 04:26 clotrimazole Allergy Severe "HIVES" Verified 05/28/18 04:26 doxycycline Allergy Severe HIVES Verified 05/28/18 04:26 duloxetine Allergy Severe VOMITING Verified 05/28/18 04:26 ferumoxytol Allergy Severe HIVES Verified 05/28/18 04:26 fluvoxamine Allergy Severe VOMITING Verified 05/28/18 04:26 Histamine H2 Inhibitors Allergy Severe "PALPITATIO Verified 05/28/18 04:26 NS" iodine Allergy Severe Burning Verified 05/28/18 04:26 mirtazapine Allergy Severe Sedation Verified 05/28/18 04:26 paroxetine Allergy Severe VOMITING Verified 05/28/18 04:26 penicillin G Allergy Severe "HIVES" Verified 05/28/18 04:26 povidone-iodine Allergy Severe Burning Verified 05/28/18 04:26 sertraline Allergy Severe VOMITING Verified 05/28/18 04:26 sodium iodide Allergy Severe Burning Verified 05/28/18 04:26 sodium iodide Allergy Severe Burning Verified 05/28/18 04:26 Sulfa (Sulfonamide Allergy Severe anaphylactic Verified 05/28/18 04:26 Antibiotics) shock venlafaxine Allergy Severe VOMITING Verified 05/28/18 04:26 sodium ferric gluconate Allergy Intermediate Hives Verified 05/28/18 04:26 complex [From Ferrlecit] sucrose [From Ferrlecit] Allergy Intermediate Hives Verified 05/28/18 04:26 ceftriaxone Allergy Unknown lump in Verified 05/28/18 04:26 throat potassium iodide Allergy Unknown Burning Verified 05/28/18 04:26 adenosine AdvReac Severe Hypotension Verified 05/28/18 04:26 diatrizoate meglumine AdvReac Severe BURNING IN Verified 05/28/18 04:26 ALL MUCOUS MEMBRANES diclofenac AdvReac Severe "JITTERY" Verified 05/28/18 04:26 epinephrine AdvReac Severe Tachycardia Verified 05/28/18 04:26 etodolac AdvReac Severe "JITTERY" Verified 05/28/18 04:26 flurbiprofen AdvReac Severe "JITTERY" Verified 05/28/18 04:26 gadobenic acid AdvReac Severe BURNING IN Verified 05/28/18 04:26 ALL MUCOUS MEMBRANES gadodiamide AdvReac Severe BURNING IN Verified 05/28/18 04:26 ALL MUCOUS MEMBRANES gadoteridol AdvReac Severe BURNING IN Verified 05/28/18 04:26 ALL MUCOUS MEMBRANES ibuprofen AdvReac Severe "JITTERY" Verified 05/28/18 04:26 indomethacin AdvReac Severe "JITTERY" Verified 05/28/18 04:26 iodixanol AdvReac Severe BURNING IN Verified 05/28/18 04:26 ALL [employer]UCOUS [employer]BRANES iohexol AdvReac Severe BURNING IN Verified 05/28/18 04:26 ALL MUCOUS [employer]BRANES ketoprofen AdvReac Severe "JITTERY" Verified 05/28/18 04:26 metoclopramide AdvReac Severe "EPS" Verified 05/28/18 04:26 naproxen AdvReac Severe "JITTERY" Verified 05/28/18 04:26 oxaprozin AdvReac Severe "JITTERY" Verified 05/28/18 04:26 prochlorperazine AdvReac Severe "EPS" Verified 05/28/18 04:26 promethazine AdvReac Severe "EPS" Verified 05/28/18 04:26 luvena Allergy Severe Burning Uncoded 05/28/18 04:26 antiinflammatories AdvReac Severe Extrapyramidal Uncoded 05/28/18 04:26 Syndrome h2 blockers AdvReac Severe Palpitation Uncoded 05/28/18 04:26 s Review of Systems ROS: all other systems reviewed are negative [facility] Medical History Medical History Back fracture (Acute) H/O: hysterectomy (Acute) Hip fracture (Acute) Lupus (Acute) Postural orthostatic tachycardia syndrome (Acute) Shoulder fracture (Acute) Thalassemia syndrome (Acute) Surgical History Surgical History H/O section (Acute) Social History Social History Substance History: No History of Abuse Second Hand Smoke Exposure: No Smoking Status: Never smoker How Often Do You Have a Drink Containing Alcohol: Never Recent Travel in [facility] within the Last 8 Weeks: No Recent Out of Country Travel within the Last 8 Weeks: No Immunization History Tetanus Immunization: >5 Years Exam Narrative Exam Narrative: GENERAL: Awake, alert, anxious, moderate distress SKIN: Focused skin assessment warm/dry. HEAD: Atraumatic. Normocephalic. EYES: Pupils equal and round. No scleral icterus. No injection or drainage. ENT: No nasal bleeding or discharge. Mucous membranes pink and moist. NECK: Trachea midline. No JVD. CARDIOVASCULAR: Regular rate and rhythm. No murmur appreciated. RESPIRATORY: No accessory muscle use. Clear to auscultation. Breath sounds equal bilaterally. GASTROINTESTINAL: Abdomen soft, non-tender, nondistended. Hepatic and splenic margins not palpable. MUSCULOSKELETAL: No obvious deformities. No clubbing. No cyanosis. No edema. NEUROLOGICAL: Awake and alert. No obvious cranial nerve deficits. Motor grossly within normal limits. Normal speech. PSYCHIATRIC: Appropriate mood and affect; insight and judgment normal. Course Initial Documented Vital Signs Temperature 97.4 F L 05/28/18 04:26 Pulse Rate 83 05/28/18 04:26 Respiratory Rate 16 05/28/18 04:26 Blood Pressure 148/69 H 05/28/18 04:26 Pulse Oximetry 99 05/28/18 04:26 Last Documented Vital Signs Temperature 97.6 F 05/29/18 08:00 Pulse Rate 68 05/29/18 09:00 Respiratory Rate 18 05/29/18 08:00 Blood Pressure 99/55 L 05/29/18 08:00 Pulse Oximetry 98 05/29/18 08:00 Medical Decision Making MDM Narrative Medical decision making narrative: 6:35 AM blood test is also back and within normal limits. CT scan does not show any acute findings that would explain the pain. However given the location of the pain decided to admit her to the chest pain center to be ruled out. I explained this to the patient and answered all her questions to the best of my ability. She understands the plan and is willing to stay. Patient was given Zofran for her nausea and pain medication. IV fluid bolus was ordered. She says she still has some pain in the epigastric area. Medical Screen Exam Complete: Yes Emergency Medical Condition: Yes Lab Data Result diagrams: 05/28/18 05:20 05/29/18 07:03 Lab Results 05/28/18 05/28/18 05/28/18 Range/Units 05:20 05:20 07:55 WBC 8.3 (4.0-11.0) th/mm3 RBC 5.32 H (4.00-5.30) mil/mm3 Hgb 11.4 L (11.6-15.3) gm/dL Hct 36.3 (35.0-46.0) % MCV 68.2 L (80.0-100.0) fL MCH 21.5 L (27.0-34.0) pg MCHC 31.5 L (32.0-36.0) % RDW 15.6 (11.6-17.2) % Plt Count 139 L (150-450) th/mm3 MPV 11.9 H (7.0-11.0) fL Neut % (Auto) 67.7 (16.0-70.0) % Lymph % (Auto) 25.6 (9.0-44.0) % [place] % (Auto) 5.5 (0.0-8.0) % Eos % (Auto) 0.3 (0.0-4.0) % Baso % (Auto) 0.9 (0.0-2.0) % Neut # (Auto) 5.7 (1.8-7.7) th/mm3 Lymph # (Auto) 2.1 (1.0-4.8) th/mm3 [place] # (Auto) 0.5 (0.0-0.9) th/mm3 Eos # (Auto) 0.0 (0.0-0.4) th/mm3 Baso # (Auto) 0.1 (0.0-0.2) th/mm3 WBC Differential . Differential Comment Auto diff final Sodium 139 (136-145) meq/L Potassium 3.6 (3.5-5.1) meq/L Chloride 104 (98-107) meq/L Carbon Dioxide 28.7 (21.0-32.0) meq/L Anion Gap 6 (5-15) meq/L BUN 16 (7-18) mg/dL Creatinine 0.87 (0.50-1.00) mg/dL Estimated GFR 67 L (>89) mL/min POC Glucose (68-110) mg/dl Random Glucose 94 (74-106) mg/dL Calcium 8.9 (8.5-10.1) mg/dL Magnesium 2.3 (1.5-2.5) mg/dL Total Bilirubin 0.4 (0.2-1.0) mg/dL AST 20 (15-37) U/L ALT 25 (10-53) U/L Alkaline Phosphatase 56 (45-117) U/L Total Creatine Kinase 35 (26-192) U/L Troponin I Less than 0.02 L Less than 0.02 L (0.02-0.05) ng/mL Total Protein 6.8 (6.4-8.2) g/dL Albumin 3.5 (3.4-5.0) g/dL Lipase 156 (73-393) U/L 05/28/18 05/29/18 05/29/18 Range/Units 11:10 06:16 07:03 WBC (4.0-11.0) th/mm3 RBC (4.00-5.30) mil/mm3 Hgb (11.6-15.3) gm/dL Hct (35.0-46.0) % MCV (80.0-100.0) fL MCH (27.0-34.0) pg MCHC (32.0-36.0) % RDW (11.6-17.2) % Plt Count (150-450) th/mm3 MPV (7.0-11.0) fL Neut % (Auto) (16.0-70.0) % Lymph % (Auto) (9.0-44.0) % [place] % (Auto) (0.0-8.0) % Eos % (Auto) (0.0-4.0) % Baso % (Auto) (0.0-2.0) % Neut # (Auto) (1.8-7.7) th/mm3 Lymph # (Auto) (1.0-4.8) th/mm3 [place] # (Auto) (0.0-0.9) th/mm3 Eos # (Auto) (0.0-0.4) th/mm3 Baso # (Auto) (0.0-0.2) th/mm3 WBC Differential Differential Comment Sodium 142 (136-145) meq/L Potassium 3.7 (3.5-5.1) meq/L Chloride 111 H (98-107) meq/L Carbon Dioxide 24.5 (21.0-32.0) meq/L Anion Gap 7 (5-15) meq/L BUN 12 (7-18) mg/dL Creatinine 0.71 (0.50-1.00) mg/dL Estimated GFR 85 L (>89) mL/min POC Glucose 88 (68-110) mg/dl Random Glucose 110 H (74-106) mg/dL Calcium 8.3 L (8.5-10.1) mg/dL Magnesium (1.5-2.5) mg/dL Total Bilirubin (0.2-1.0) mg/dL AST (15-37) U/L ALT (10-53) U/L Alkaline Phosphatase (45-117) U/L Total Creatine Kinase 32 (26-192) U/L Troponin I Less than 0.02 L (0.02-0.05) ng/mL Total Protein (6.4-8.2) g/dL Albumin (3.4-5.0) g/dL Lipase (73-393) U/L Imaging Data Radiologist's impression: Abdomen/Pelvis CT 05/28/18 05:20 CONCLUSION: 1. No acute findings. Tiny nonobstructing calculi in the right kidney. ECG Data Attestation: I personally reviewed and interpreted this ECG as follows: Interpretation: Twelve-lead EKG was reviewed by me. Normal sinus rhythm, normal axis, nonspecific ST-T wave changes and heart rate of 70 bpm Discharge Plan Discharge Disposition Patient Disposition: 30 Still Patient Discharge Condition Condition: Good Discharge Order Discharge Orders: Discharge Order (Routine); Ordered 05/29/18 Ordered By: Andres Duron Physicians Team ED Provider: Edwin Dykes Primary Care Provider: Andres Duron Attending Provider: Andres Duron Status ED Status: Left Department Discharge Information Discharge Date/Time: 05/28/18 11:46
[2018-05-28 08:26] LABS: Creatine Kinase 35 U/L (26-192)
[2018-05-28] MEDS ORDERED: Sodium Chloride 0.9% 2 ML Flush PRN IV.FLUSH (10:34)
[2018-05-28] MEDS ORDERED: Sod Chloride 0.9% Inj 1,000 ML IV.SIG SCH (10:45)
[2018-05-28 11:54] LABS: Creatine Kinase 32 U/L (26-192)
--- NOTE | 2018-05-28 14:22 | ECG ---
Date Performed: 05/28/2018 Time Performed: 05:06:51 PTAGE: 58 years EKG: Sinus rhythm CONSIDER INFERIOR MYOCARDIAL INFARCTION, AGE INDETERMINATE ABNORMAL ECG PREVIOUS TRACING : 10/14/2017 04.55 DOCTOR: Jay Rosario Interpretating Date/Time 05/30/2018 07:02:16
--- NOTE | 2018-05-28 14:23 | ECG ---
Date Performed: 05/28/2018 Time Performed: 07:54:17 PTAGE: 58 years EKG: SINUS BRADYCARDIA CONSIDER INFERIOR MYOCARDIAL INFARCTION, AGE INDETERMINATE ABNORMAL ECG PREVIOUS TRACING : 05/28/2018 05.06 DOCTOR: Jay Rosario Interpretating Date/Time 05/28/2018 14:21:18
[2018-05-28] MEDS ORDERED: LORazepam 1 MG Tablet PO PRN (16:54)
[2018-05-28] MEDS ORDERED: Pantoprazole Inj 40 MG Vial IV.PUSH SCH (17:00)
[2018-05-28] MEDS: Atenolol 25 MG Tablet PO SCH (18:00)
[2018-05-28] MEDS: Potassium Chloride Inj 10 MEQ in Sod Chloride 0.9% Inj 1,000 ML IV.CONT SCH (18:49)
--- NOTE | 2018-05-28 19:23 | MH ---
cc: Andres Duron MD DATE OF ADMISSION: 05/28/2018 ADMITTING DIAGNOSES: Nausea, epigastric discomfort. HISTORY OF PRESENT ILLNESS: This 58-year-old white female, well known to the undersigned physician, has a complex past medical history including gastroparesis with chronic nausea, [place] disease, dysautonomia, chronic hip pain and postural orthostatic tachycardia syndrome, presented to the emergency department complaining of nausea and epigastric discomfort which began gradually over the day. On the day prior to admission, she had increasing nausea. The patient had no emesis, but she states that she was extremely nauseated. She had been having soft stools, which is not uncommon for this patient as she takes laxatives on a daily basis. She had no fever, chills, night sweats, chest pain, shortness of breath, lightheadedness, dizziness, headaches, visual changes, lateralizing neurologic deficits. She did take Zofran at home which she had, but it did not help. At that point, her nausea persisted and she was concerned that if she had an episode of emesis, she would develop an Addisonian crisis, so she presented to the emergency department. The patient states that she ate out on , and approximately 12 hours later, she began to experience the symptoms. She was suspicious that the food that she ate may have caused her symptoms. PAST MEDICAL HISTORY: Significant for [place] disease, gastroparesis, dysautonomia. 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 She has history of Raynaud phenomenon. She has beta thalassemia minor. She has a history of a T7 compression fracture. She had a left hip fracture with subsequent left total hip replacement in 2011. She has a history of postural orthostatic tachycardia syndrome. She has an incidental finding of small right kidney stones, which are asymptomatic, and she had a right humerus fracture in 2014. PAST SURGICAL HISTORY: Significant for partial hysterectomy in 2000, sections in 1983, 1986 in 1995 and she is status post a left total hip replacement due to a fracture in 2011. CURRENT MEDICATIONS: 1. Folic acid 400 mcg daily. 2. Percocet 5/325 mg 1 tablet every 6 hours as needed for pain. 3. Fludrocortisone 0.1 mg twice daily. 4. Estradiol cream 0.1 mg/gram 0.5 gram 3 days per week intravaginally. 5. Diclofenac gel 1% at 2 grams to affected joints 3 times a day as needed. 6. Potassium chloride ER 10 mEq 1 capsule twice daily. 7. MiraLAX 34 grams in 8 ounces of liquid in the morning and 17 grams in 8 ounces of liquid in the evening. 8. Azithromycin 200 mg/5 mL at 5 mL every other day. 9. Colace 100 mg daily as needed for constipation. 10. Nexium 40 mg daily. 11. Synthroid 68.5 mcg 3 days a week and 62.5 mcg 4 days a week. 12. Zofran 4 mg every 8 hours as needed for nausea. 13. Lorazepam 1 mg 1/2 to 1 tablet 3 times a day as needed for anxiety. 14. Atenolol 25 mg 1 tablet 3 times a day. 15. Prednisone 3 mg at 6 a.m., 1.5 mg at 3 p.m. and 1 mg at midnight each day. 16. Fluticasone nasal spray 2 sprays each nostril daily. 17. Aspirin 81 mg daily. ALLERGIES: SHE HAS ALLERGIES TO COMPAZINE, IV CONTRAST, SULFA, PENICILLIN, NSAIDS, H2 BLOCKERS, ADENOSINE, AMOXICILLIN, PHENERGAN AND REGLAN. FAMILY HISTORY: Noncontributory. SOCIAL HISTORY: She is disabled due to her multiple medical problems. She lives with a significant other. She does not smoke nor has she ever. She does not consume any alcohol. REVIEW OF SYSTEMS: Negative except as outlined above. PHYSICAL EXAMINATION: VITAL SIGNS: Upon arrival to the emergency department, the patient's blood pressure was 148/69 with a heart rate of 83, respirations 16, temperature 97.4 degrees Fahrenheit, oxygen saturation on room air 99%. At the current time, her blood pressure is 113/54 with a heart rate of 76, respirations 16, temperature 97.7 degrees Fahrenheit and oxygen saturation 95% on room air. GENERAL: This is a well-nourished, well-developed, middle-aged white female in mild distress due some nausea. HEENT: Pupils equal, round and reactive to light. Extraocular movements are intact. Sclerae are anicteric. Conjunctivae pink. Mouth and throat reveal moist mucous membranes. No erythema or exudates. NECK: Supple without lymphadenopathy, JVD, bruits or thyromegaly. CARDIOVASCULAR: Regular rate and rhythm without murmurs, rubs or gallops. LUNGS: Clear to auscultation without wheeze, rhonchi or rales. ABDOMEN: Moderately distended, soft, nontender. Bowel sounds are present. No masses palpable. No hepatosplenomegaly. GENITOURINARY: Deferred. RECTAL: Deferred. LOWER EXTREMITIES: Reveal no edema, no calf tenderness, no Homans sign. 2+ distal pulses. SKIN: Warm and dry. No significant rashes or lesions. NEUROLOGIC: Nonfocal. LABORATORY AND DIAGNOSTIC DATA: White blood cell count 8.3, hemoglobin 11.4, hematocrit 36.3, platelet count 139,000. Comprehensive metabolic profile was within normal limits. Lipase is normal at 156. Troponin less than 0.02. A CT scan of the abdomen and pelvis done without IV contrast revealed tiny nonobstructing calculi in the right kidney, otherwise no acute findings. EKG revealed sinus bradycardia with a rate of 59 BPM. There are Q-waves in II, III and aVF and in V4 through V6. There are no acute ST or T-wave changes. There is no significant change since prior study. IMPRESSION AND PLAN: 1. This 58-year-old white female who presented with nausea and epigastric discomfort. In the emergency department, she received intravenous Zofran and intravenous fluids. She is feeling better. She did have some mild residual nausea initially, but at the time of my evaluation, her nausea was essentially gone. She had been tolerating some clear liquids. At this point, I have discussed with the patient possible etiologies. It is possible she had a degree of food poisoning versus exacerbation of gastroparesis. The CT scan did not reveal any evidence of cholecystitis. She has no evidence of bowel obstruction. There was a concern about the possibility that this could be related to cardiac disease and initially, the patient was placed on observation in the chest pain center, but cardiology did not feel the patient warranted a stress test. Serial electrocardiograms and troponin levels have been normal. No evidence of any acute coronary ischemia. I will reduce the patient's intravenous fluids, advance her diet, provide intravenous Zofran as needed. If her symptoms continue to improve, we will discharge her home tomorrow. The patient does have chronic daily nausea, but has been able to maintain her weight with a restricted diet and she does follow up regularly with the undersigned physician and gastroenterology. If the patient has recurrence of the nausea or any emesis, we will consult gastroenterology for assistance with further evaluation. Typically, she receives her azithromycin every other day. She will resume it when she is discharged home. 2. History of dysautonomia with postural orthostatic tachycardia syndrome. The patient will be maintained on atenolol and we will monitor her heart rate closely. 3. Hypothyroidism. Continue the patient with her usual dose of Synthroid. 4. [place] disease. The patient received a stress dose of 50 mg of hydrocortisone in the emergency department. We discussed weaning down the stress dose slowly. We will provide her with hydrocortisone 25 mg this evening and again 25 mg intravenous in the morning and she will resume her usual prednisone dosage. If there is any recurrent nausea, we may need to maintain her stress dosing. We will also continue with fludrocortisone as prescribed, and we will also need to monitor her potassium level closely. I have added potassium to the patient's intravenous fluids. 5. Chronic pain in the left hip and thoracic back. The patient will be provided with Percocet as needed. 6. 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 The patient has difficulty tolerating high iron foods and she does not tolerate intravenous iron infusions. Hemoglobin and hematocrit are overall stable. We will follow as an outpatient. 7. Chronic constipation. The patient has had looser stools. At this point, we will hold the MiraLAX and see how she does. I have discussed the patient's condition and plan of care with her and her significant other, who is at the bedside. Both expressed understanding and agreement. MD GREY Nguyen/phillip , 05:13 PM , 05:33 PM
[2018-05-28] MEDS ORDERED: Sodium Chloride 0.9% 2 ML Flush BID IV.FLUSH SCH (21:00)
[2018-05-29] MEDS ORDERED: Levothyroxine 125 MCG Tablet PO SCH (06:00)
[2018-05-29] MEDS ORDERED: predniSONE 1 MG Tablet PO ONE ×2 (06:00)
[2018-05-29] MEDS ORDERED: Hydrocortisone Sod Succinate 100 MG Vial IV.PUSH ONE (06:00)
[2018-05-29 07:44] LABS: Calcium 8.3 mg/dL (8.5-10.1); Carbon Dioxide 24.5 meq/L (21.0-32.0); Potassium 3.7 meq/L (3.5-5.1)
[2018-05-29 08:37] VITALS: BP 99/55; RESP 18; TEMP 97.6; O2SAT 98
--- NOTE | 2018-05-29 09:04 | P.PN ---
Subjective Interval history: Patient still having some nausea but nausea is at baseline. She is taking adequate oral intake. Had multiple bowel movements since admission. Abdominal distention has decreased. She is afebrile. She has a strong desire to be discharged home. Active Medications Generic Name Dose Route Start Last Admin Trade Name Freq PRN Reason Stop Dose Admin Atenolol 25 mg 05/28/18 18:00 05/28/18 18:00 Tenormin PO Not Given TID ZACKERY Fludrocortisone Acetate 0.1 mg 05/29/18 06:00 05/29/18 06:34 Florinef PO 0.1 mg DAILY ZACKERY Administration Potassium Chloride 10 meq/ 1,005 mls @ 75 mls/hr 05/28/18 18:00 05/28/18 18: 49 Sodium Chloride IV.CONT 75 mls/hr .[id number] ZACKERY Administration Levothyroxine Sodium 62.5 mcg 05/29/18 06:00 05/29/18 06:26 Synthroid PO 62.5 mcg DAILY@0600 ZACKERY Administration Lorazepam 1 mg 05/28/18 16:54 05/29/18 02:44 Ativan PO 1 mg Q8HR PRN Administration ANXIETY AND/OR INSOMNIA Miscellaneous 1 each 05/28/18 16:51 Pill Splitter OTHER UNSCH PRN SEE LABEL COMMENTS Ondansetron HCl 4 mg 05/28/18 10:34 05/29/18 02:44 Zofran Inj IV.PUSH 4 mg Q6H PRN Administration NAUSEA AND VOMITING Oxycodone HCl 2.5 mg 05/28/18 16:46 Roxicodone PO Q6H PRN PAIN SCALE 4 TO 6 MODERATE Oxycodone HCl 5 mg 05/28/18 16:48 05/29/18 06:25 Roxicodone PO 5 mg Q6H PRN Administration PAIN SCALE 7 TO 10 SEVERE Pantoprazole Sodium 40 mg 05/28/18 17:00 05/28/18 17:59 Protonix Inj IV.PUSH Not Given Q24H ZACKERY Sodium Chloride 2 ml 05/28/18 05:20 Ns Flush IV.FLUSH PRN PRN FLUSH AFTER USING IV ACCESS Sodium Chloride 2 ml 05/28/18 09:00 05/28/18 20:23 Ns Flush IV.FLUSH 2 ml BID ZACKERY Administration Sodium Chloride 2 ml 05/28/18 06:36 Ns Flush IV.FLUSH PRN PRN FLUSH AFTER USING IV ACCESS Physical Exam Vital signs: Vital Signs 05/28/18 09:00 05/28/18 11:45 05/28/18 16:00 Temperature 97.7 F Pulse Rate 71 71 76 Respiratory Rate 16 Blood Pressure 111/56 L 113/54 L Pulse Oximetry 96 95 05/28/18 20:00 05/28/18 23:39 05/29/18 08:00 Temperature 98.6 F 97.5 F L 97.6 F Pulse Rate 64 68 71 Respiratory Rate 17 16 18 Blood Pressure 113/61 103/58 L 99/55 L Pulse Oximetry 94 L 99 98 Intake & Output 05/28/18 05/29/18 05/29/18 18:59 06:59 18:59 Intake Total 1000 / 1000 5300 / 5300 Balance 1000 / 1000 5300 / 5300 Weight 113 lb 0.002 oz Intake: IV 1000 / 1000 800 / 800 NS Inj 1,000 ML @ 100 mls/hr IV 1000 / 1000 800 / 800 .SIG .Q10H ZACKERY Rx#:[id number] Oral 4500 / 4500 Other: # Voids 1 5 Date of Last Bowel Movement 05/29/18 # Bowel Movements 1 - Constitutional no acute distress - Routine Respiratory Exam Present: CTA bilaterally - Routine Cardiovascular Exam Present: RRR - Routine Abdominal Exam Comments: Soft, mild distention, bowel sounds present, nontender Results - Labs CBC & Chem 7: 05/28/18 05:20 05/29/18 07:03 Laboratory Results - last 24 hr 05/28/18 05/29/18 05/29/18 11:10 06:16 07:03 Sodium 142 Potassium 3.7 Chloride 111 H Carbon Dioxide 24.5 Anion Gap 7 BUN 12 Creatinine 0.71 Estimated GFR 85 L POC Glucose 88 Random Glucose 110 H Calcium 8.3 L Total Creatine Kinase 32 Troponin I Less than 0.02 L Assessment and Plan - Assessment (1) Gastroenteritis Code(s): K52.9 - Noninfective gastroenteritis and colitis, unspecified Status : Resolved Plan: Patient likely had food borne gastroenteritis. Symptoms have resolved. Patient 's gastrointestinal status at baseline. She is able to take in adequate nutrition. Bowels are moving well. She has resumed a regular diet. (2) Gastroparesis Code(s): K31.84 - Gastroparesis Status: Chronic Plan: The patient will resume azithromycin at home after discharge. (3) Addisons disease Code(s): E27.1 - Primary adrenocortical insufficiency Status: Chronic Plan: The patient did receive stress doses of steroids during the hospitalization. She will resume her usual dosage of steroids as outpatient. (4) Hypothyroidism Code(s): E03.9 - Hypothyroidism, unspecified Status: Chronic Plan: Continue with current dosage of levothyroxine. Patient has frequent thyroid studies done as an outpatient and she has been euthyroid (5) Postural orthostatic tachycardia syndrome Code(s): R00.0 - Tachycardia, unspecified; I95.1 - Orthostatic hypotension Status: Chronic Plan: Symptoms controlled with atenolol (6) Kidney stones Code(s): N20.0 - Calculus of kidney Status: Chronic Plan: She has an incidental finding of small right kidney stones. This is a chronic finding seen on prior scans. Patient asymptomatic. Will follow. - Plan Discharge Planning: Plan to discharge home today with close outpatient follow-up. (4) Hypothyroidism Qualifiers: Hypothyroidism type: unspecified Qualified Code(s): E03.9 - Hypothyroidism, unspecified
[2018-05-29] MEDS: Atenolol 25 MG Tablet PO SCH (09:12)
--- NOTE | 2018-05-29 09:17 | P.DS ---
Date of admission: 05/28/18 06:36 Primary care physician: Andres Duron MD Attending physician on discharge: nAdres Duron Anticipated date of discharge: 05/29/18 Brief History from admission: This 58-year-old white female with known gastroparesis, hypothyroidism, [place] s disease, postural orthostatic tachycardia developed progressive nausea but no emesis over the day prior to admission. She stated that she felt as if she needed to have emesis but resisted as she was concerned it would cause an adrenal crisis. Patient stated that she ate out in a restaurant for [email or web address] and since she had a gluten-free diet, her food was prepared to separate from other individuals. She felt that the turkey she ate did not taste right so she only ate a portion of her meal. Her symptoms started within 8 hours of eating that meal. She had a sudden onset of increased nausea and she developed some epigastric discomfort. She was brought to the emergency department by her significant other. The patient underwent laboratory evaluation which was essentially unremarkable. CT scan of the abdomen and pelvis revealed incidental finding of some right kidney stones which were a known finding otherwise no significant bowel obstruction or evidence of any intra-abdominal processes. The emergency room physician initially was concerned about cardiac etiology due to the epigastric nature of the pain which the patient mentioned would at times radiated to the substernal area. The patient was initially referred to the chest pain center for further evaluation, however, upon review of the patient by cardiology, it was not felt that the patient required cardiac evaluation. The undersigned physician was asked to assume the patient's care. DS: Diagnosis - Discharge Diagnosis (1) Gastroenteritis Status: Resolved Diagnosis: Principal (2) Gastroparesis Status: Chronic Diagnosis: Secondary (3) Addisons disease Status: Chronic Diagnosis: Secondary (4) Hypothyroidism Status: Chronic Diagnosis: Secondary (5) Postural orthostatic tachycardia syndrome Status: Chronic Diagnosis: Secondary (6) Kidney stones Status: Chronic Diagnosis: Secondary DS: Summary Hospital Course: The patient was placed in observation. She was provided with IV fluids and clear liquid diet. She was given Zofran IV. Over the first hospital day, her nausea improved. She has chronic daily nausea from her gastroparesis and takes Zofran on a daily basis. The patient stated by the late afternoon that her nausea was at her baseline. She requested advancement of her diet. The patient was found to have significant abdominal distention and she had not had a bowel movement since the day prior. During the remainder of the hospital course she had multiple bowel movements of soft to liquid stools. Her nausea remained under adequate control and she was tolerating a regular diet. The patient was given stress doses of steroids in the emergency department and during her hospitalization. On the day of discharge she was instructed to resume her usual steroid doses. There is no evidence of any adrenal crisis. The patient was maintained on her usual medications for her multiple medical problems and they all remained stable. On the day of discharge the patient was ambulating independently. She had tolerated breakfast without any increased nausea or any emesis. Her bowels are moving well. Urine output was good. She had a strong desire to be discharged home. It was felt the patient had obtained maximum benefit from the hospitalization. The patient would be discharged home in good condition with no limitations in her activity. She would follow-up with the undersigned physician in 1-2 weeks. She would call if there is any recurrent increased nausea, emesis or abdominal pain. Medications are listed on the medication reconciliation sheet. - Time Spent with Patient Total time spent providing and/or coordinating discharge services: Less than 30 minutes - Quality: VTE Deep Vein Thrombosis/Pulmonary Embolism Present on Admission: No Exam Vital signs: Vital Signs 05/28/18 11:45 05/28/18 16:00 05/28/18 20:00 Temperature 97.7 F 98.6 F Pulse Rate 71 76 64 Respiratory Rate 16 17 Blood Pressure 111/56 L 113/54 L 113/61 Pulse Oximetry 96 95 94 L 05/28/18 23:39 05/29/18 08:00 Temperature 97.5 F L 97.6 F Pulse Rate 68 71 Respiratory Rate 16 18 Blood Pressure 103/58 L 99/55 L Pulse Oximetry 99 98 Intake & Output 05/28/18 05/29/18 05/29/18 18:59 06:59 18:59 Intake Total 1000 / 1000 5300 / 5300 Balance 1000 / 1000 5300 / 5300 Weight 113 lb 0.002 oz Intake: IV 1000 / 1000 800 / 800 NS Inj 1,000 ML @ 100 mls/hr IV 1000 / 1000 800 / 800 .SIG .Q10H ZACKERY Rx#:[id number] Oral 4500 / 4500 Other: # Voids 1 5 Date of Last Bowel Movement 05/29/18 # Bowel Movements 1 - Constitutional no acute distress - Routine Respiratory Exam Present: CTA bilaterally - Routine Cardiovascular Exam Present: RRR - Routine Abdominal Exam Comments: Soft, nontender, mild distention with bowel sounds present Results Procedures completed during hospitalization: None Labs on day of discharge: Labs from last 24 hours 05/29/18 05/29/18 05/28/18 07:03 06:16 11:10 Sodium 142 Potassium 3.7 Chloride 111 H Carbon Dioxide 24.5 Anion Gap 7 BUN 12 Creatinine 0.71 Estimated GFR 85 L POC Glucose 88 Random Glucose 110 H Calcium 8.3 L Total Creatine Kinase 32 Troponin I Less than 0.02 L - Impressions ITS Impressions Abdomen/Pelvis CT 05/28/18 05:20 CONCLUSION: 1. No acute findings. Tiny nonobstructing calculi in the right kidney. Discharge Plan - Discharge Disposition Patient Disposition: 01 Discharge Home - Discharge Condition Condition: Good - Discharge Order Discharge Orders: Discharge Order (Routine); Ordered 05/29/18 Ordered By: Andres Duron - Physicians Team Primary Care Provider: Andres Duron Attending Provider: Andres Duron
[2018-05-29 10:18] VITALS: PULSE 68
[2018-05-29] MEDS: Potassium Chloride Inj 10 MEQ in Sod Chloride 0.9% Inj 1,000 ML IV.CONT SCH (10:18)
--- NOTE | 2018-05-29 14:11 | ECG ---
Date Performed: 05/28/2018 Time Performed: 11:41:14 PTAGE: 58 years EKG: Sinus rhythm CONSIDER INFERIOR MYOCARDIAL INFARCTION, AGE INDETERMINATE ABNORMAL ECG PREVIOUS TRACING : 05/28/2018 07.54.17 DOCTOR: Jay Rosario Interpretating Date/Time 05/29/2018 14:10:08
== END 2018-05-29 09:53 | disposition home or self-care (01) ==
LOC: NEPC 04:19 → NEDA 04:19 → NEPHCDU 11:57
PROVIDERS: ADMIT Family Medicine; ATTEND Family Medicine